=== PATIENT | male | born 1955 | race Caucasian/White ===

== ENCOUNTER 2019-11-19 13:21 | Outpatient (CLI) | payer MEDICAID, SELFPAY ==
--- NOTE | 2019-11-19 13:30 | CT_ITS ---
WS: [id number] CTA ABDOMINAL AORTA WITH RUNOFF TECHNIQUE: Contrast enhanced CTA of the abdominal aorta with bilateral lower extremity runoff. Multip lanar reformatted images were obtained. MIP reformats were also reviewed. CLINICAL INFORMATION: perip artery disease COMPARISON: None. DLP: 1312.[address] scans at [facility] use at least one of these dose optimization techniques: automat ed exposure control; mA and/or kV adjustment per patient size (includes targeted exams where dose is matched to clinical indication); or iterative reconstruction. FINDINGS: Liver is normal. Adrenal glands are normal. Normal renal parenchymal enhancement. Normal spleen. Norm al GE junction. Urine distended bladder. Prostate enlargement with calcification. Disc space narrowin g L5-S1. RIGHT: Right common iliac artery is patent. Moderate calcified atheromatous disease. Right external a nd internal iliac arteries are patent. Calcified internal iliac artery. Right common femoral and supe rficial femoral arteries are patent. Deep femoral artery is patent. SFA is patent to the adductor hia tus. Normal popliteal artery to the trifurcation. Mild calcification at the tibioperoneal trunk. Thre e-vessel runoff to the ankle. LEFT: Left common iliac artery is patent. Internal and external iliac arteries are patent. Dense calc ification internal iliac artery. Left common femoral artery is patent. Superficial femoral artery is occluded at the origin. Deep femoral artery is patent. Superficial femoral artery remains occluded th roughout the thigh. Popliteal artery reconstitutes via collaterals above the knee. Popliteal artery i s patent to the trifurcation with three-vessel runoff to the ankle. CT/CT angio abd aorta runof 80743 IMPRESSION: 1. Left superficial femoral artery is occluded at the origin and remains occlu ded throughout the thigh. 2. Reconstitution of the left popliteal artery [id number] with three-vesse l runoff to the left ankle. 3. No flow-limiting stenosis in the right lower extremity. 4. Normal caliber abdominal aorta. No abdominal aortic aneurysm. 5. Celiac and SMA origins are patent.
[2019-11-19 14:21] LABS: Blood Urea Nitrogen 11 mg/dL (8-23); Glomerular Filtration Rate 97.3 mL/min (90-130)
[2019-11-19] MEDS: iohexol 350 mg/mL 100 mL Btl IV (14:50)
== END 2019-11-19 13:22 | disposition home or self-care (01) ==
LOC: CT 13:24
PROVIDERS: Family Provider Family Medicine; PCP Family Medicine; Visit Provider Thoracic Surgery (Cardiothoracic Vascular Surgery)
DX: I70.292 Other atherosclerosis of native arteries of extremities, left leg (principal); I77.1 Stricture of artery
CPT/HCPCS: 36415; 75635; 82565; 84520

== ENCOUNTER 2020-02-07 18:00 | Inpatient (IN) | payer MEDICAID, SELFPAY ==
[2020-02-03 08:30] VITALS: BMI 23.0
--- NOTE | 2020-02-04 11:56 | ECG_ITS ---
Measurements Intervals [place] Rate: 54 P: 73 RI: 179 QRS: 63 QRSD: 90 T: 59 QT: 420 QTc: 401 SINUS BRADYCARDIA Compared to ECG 10/25/2014 17:33:53 Sinus tachycardia no longer present Electronically Signed On 02-04-2020 15:25:34 CDT by Mikayla Celestin M.D. [id number]
[2020-02-04 12:25] LABS: Add Urine Microscopic? NO
--- NOTE | 2020-02-04 12:56 | ANES.PREANE2 ---
Pre-Anesthetic Assessment Pre-Anesthetic Assessment: Height/Weight: Height 1.83 m Weight 77.111 kg Preop Diagnosis: Left superficial femoral artery occlusion Proposed Procedure: Operation Date: 02/07/20 12:15 Proposed Procedures p Femoral-Popliteal Artery Bypass 12719 I70.209(Not Applicable) - Ted Boo MD Familial anesthetic complications: None Social: Social History: Tobacco and No alcohol Packs per day: 0.5 ppd Exam: Pre-Anes Outpt Exam: alert, oriented x 3, clear to auscultation bilaterally and regular rate & rhythm Airway: Cervical ROM: WNL MP: 2 Additional comments: missing Pulmonary: Pulmonary: None reported CV/HEM: CV/HEM: PVD and None reported : : None reported Hepatic: Hepatic: None reported GI: GI: None reported Metabolic: Metabolic: None reported Musc/skel: Musc/skel: Lower Back Pain Comments: leg pain Neuropsych: Neuropsych: None reported Anesthetic Plan: ASA status: 3 Anesthesia: General Other: maijuana use (2-3 years ago) Risk of > 500 ml blood loss (7ml/kg in children): No PFSH Anesthesia PFSH: Social History Smoking and tobacco status: current every day smoker cigarettes Number of cigarettes per day: 1-5 Alcohol intake: former Household members: spouse Marital status: service: Yes Data Anesthesia Cardiac Studies: No Data to Display
[2020-02-04 13:33] LABS: Anion Gap 16.2 (5-19); Blood Urea Nitrogen 11 mg/dL (8-23); Calcium 10.4 mg/dL (8.5-10.5); Carbon Dioxide 26 mmol/L (22-29); Chloride 101 mmol/L (98-107); Glucose 78 mg/dL (65-115); Osmolality Calculated 283 mOsm/kg (285-295); Potassium 4.2 mmol/L (3.5-5.1); Sodium 139 mmol/L (136-145)
[2020-02-04 13:33] LABS: Bilirubin Urine Neg (NEGATIVE); Blood Urine Neg (Negative); Glucose Urine UA Norm (Normal); Ketones Urine Negative (Negative); Leukocyte Esterase Urine Negative (Negative); Nitrate Urine Negative (Negative); Protein Urine Neg (Negative); Specific Gravity, Urine 1.005 (1.005-1.030); Urine Appearance Clear (CLEAR); Urine Color Straw (Yellow); Urobilinogen Urine Norm (Negative); pH Urine 7 (5-7)
[2020-02-07] VITALS (32 sets, daily range): BP systolic 97–150; BP diastolic 52–88; PULSE 61–88; RESP 11–21; TEMP 36.4–37.1; O2SAT 94–100
--- NOTE | 2020-02-07 10:14 | XR_ITS ---
WS: [id number] PORTABLE CHEST HISTORY: Left femoropopliteal bypass COMPARISON: 10/25/2014 Hyperinflated lungs with emphysema. Scarring and pleural thickening is noted at the lung apices. Priya lar to the PET/CT from 09/19/2018. No pleural effusion or pneumothorax. Cardiac size: Normal. Mediastinum/Aorta: Normal mediastinum. No osseous abnormality seen. XR/XR chest 1V portable [id number] IMPRESSION: Chronic emphysema with fibrosis and pleural thickening at the apices.
--- NOTE | 2020-02-07 10:26 | P.ANESUD_ITS ---
Pre-Anesthetic Update Pre-Anesthetic Assessment: Date of Surgery/Procedure: 02/07/20 Preop Melody gnosis: Left superficial femoral artery occlusion Proposed Procedure: Operation Date: 02/07/20 12:15 Proposed Procedures p Femoral-Popliteal Artery Bypass 86811 I70.209(Not Applicable) - Ted Boo MD Any changes to Pre-Anesthetic Assessment?: No Last Intake: NPO > 8 hrs Labs Last 48hrs: Laboratory Results - last 48 hr 02/04/20 12:45 Blood Type A Positive Rho(D) Type Positive Antibody Screen Negative Crossmatch See Detail Exam: Pre-Anes Outpt Exam: alert, oriented x 3, clear to auscultation bilaterally and regular rate & rhythm Cardiac Studies: No Data to Display
[2020-02-07] MEDS: sodium chloride 0.9% 1,000 ML 30 ML IV (11:06)
[2020-02-07 11:16] LABS: Basophils % 0.6 %; Eosinophils # 0.2 10^3/uL (0.0-0.8); Eosinophils % 2.2 %; Hematocrit 45.3 % (42.0-52.0); Hemoglobin 14.9 g/dL (11.7-16.6); Lymphocytes # 1.4 10^3/uL (0.8-4.8); Lymphocytes % 20.2 %; Mean Corpuscular HGB Conc 32.9 g/dL (30.0-36.0); Mean Corpuscular Hemoglobin 32.7 pg (28.0-34.0); Mean Corpuscular Volume 99.6 fL (80-94); Mean Platelet Volume 8.6 fL (7.4-10.4); Monocytes # 0.5 10^3/uL (0.2-0.9); Neutrophils # 4.6 10^3/uL (1.8-7.7); Neutrophils % 68.6 %; Nucleated Red Blood Cells % 0 %; Platelet Count 280 10^3/cmm (130-400); Red Blood Count 4.55 10^6/uL (4.1-5.3); Red Cell Distribution Width 14.2 % (12.1-15.1); White Blood Count 6.7 10^3/uL (4.0-10.0)
--- NOTE | 2020-02-07 12:57 | W.PM.OPSUD ---
Surgery/Procedure H&P Update DATE OF PROCEDURE: February 07, 2020 DATE H&P PERFORMED: 02/03/20 H&P UPDATE INFORMATION: I have reviewed H&P completed within last 30 days, I have examined patient prior to procedure (Patient has been appropriately marked for left lower extremity procedure.) and No changes to prior documentation PREOP DIAGNOSIS: Left superficial femoral artery occlusion PRIMARY INDICATION FOR PROCEDURE: Left superficial femoral artery occlusion PLANNED PROCEDURE: Operation Date: 02/07/20 12:15 Proposed Procedures p Femoral-Popliteal Artery Bypass 86626 I70.209(Not Applicable) - Ted Boo MD
[2020-02-07] MEDS: vancomycin 1,000 MG SDV 1000 MG IRRIGATION (14:30)
[2020-02-07] MEDS: heparin, porcine 1,000 unit/mL INJ 10 mL 10000 UNIT IRRIGATION (14:30)
[2020-02-07] MEDS: fentaNYL 50 mcg/mL INJ 2mL IVP ×2 (17:33→17:46)
[2020-02-07] MEDS: ketorolac 30 mg/mL INJ (17:34)
--- NOTE | 2020-02-07 17:38 | PM.OP ---
Operative Report Date of procedure: February 07, 2020 Pre-op Diagnosis: Left superficial femoral artery occlusion Procedure Done: Left femoral-popliteal artery bypass utilizing 8 mm ringed [place]-Thomas graft Implants: 8 mm ring [place]-Thomas graft Pathology: none sent Surgeon: Ted Boo Anesthesia: General Estimated blood loss (mL): 35 Complications: None Findings: Palpable dorsalis pedis and posterior tibial pulses of the left foot at completion of the procedure. Condition: stable Disposition: ICU Brief History: 54-year-old gentleman with a long history of continued tobacco use. He has had progressive claudication of the left lower extremity which is now greatly affecting his day-to-day activities. Prior CTA of the abdominal aorta with runoff reveals total occlusion of the left SFA with reconstitution above the knee. Consideration for surgical bypass was entertained and discussed carefully with Mr. Connell. Potential risk of the procedure were frankly discussed as well as increased risk for early or delayed failure of the graft with continued tobacco use. Proper consents have been reviewed and signed. Procedure: Mr. Connell's bilateral lower extremities and lower abdomen were sterilely prepped and draped. A sterile roll was placed beneath the left knee. Incision was made medial to the left knee. Dissection was carried down with cautery and Metzenbaum scissors and this posterior space and to be heavily calcified popliteal artery and was identified. Intimate approximation with the popliteal vein was carefully and small bridging veins were divided after securing with vascular clips. No genicular branches needed to be divided. Vessels were noted to be heavily calcific but again much less so further distally. There did appear to be an adequate landing zone distally. Moistened antibiotic impregnated gauze was then placed in the wound after dissection been completed. We next made an incision in the left groin crease and utilize cautery and Metzenbaum scissors to continue dissection down to the femoral sheath was opened where the common femoral artery was carefully dissected free and isolated. Vessel loop was placed around the profundus femoral artery for control. The superficial femoral artery demonstrated heavy calcifications at its origin and was occluded. After control was obtained proximally and distally, a subcutaneous tunnel was then created from the distal incision to the proximal incision where an 8 mm ringed reinforced [place]-Thomas graft was then placed in this tunnel. After proper positioning, patient received 10,000 units of heparin. Next, the [place]-Thomas graft was cut to the appropriate length and beveled. Control was obtained on the popliteal artery utilizing vascular clamps. Arteriotomy was created with a #11 scalpel blade and large appropriately with Salazar scissors. Distal anastomosis was then completed utilizing running 6-0 Prolene suture to the distal aspect of the [place]-Thomas graft. Next, we beveled the proximal aspect the [place]-Thomas graft appropriately. Proximal and distal control was obtained on the femoral artery and the vessel was opened with a #11 scalpel blade and enlarged with Salazar scissors. Proximal anastomosis was then completed with the [place]-Thomas graft, again in a running fashion utilizing 6-0 Prolene suture. De-airing and backbleeding was allowed to occur. Antegrade flow was then reestablished through the graft into the popliteal artery. Areas of extravasation were repaired with 6-0 Prolene suture. Heparin was reversed with protamine and confirmed clinically. After adequate hemostasis had been obtained, the wound was irrigated with antibiotic solution. Sponge and needle count was correct x2. The wounds were then closed with Vicryl suture in multiple layers. Skin was reapproximated in a subcuticular fashion utilizing 3-0 Monocryl suture. Sterile dressing was applied. Mr. Connell was noted to have palpable dorsalis pedis and posterior tibial pulses at completion of the procedure. He was transported to the ICU in stable condition. I did counselor at law with his son by phone at the completion of the procedure.
[2020-02-07] MEDS: morphine 4 mg/mL SDV 1 mL 2 MG IVP ×2 (17:51→19:17)
--- NOTE | 2020-02-07 18:27 | SUR.PHASEI ---
1800 PT AWAKE ALERT ART LINE TO RT WRIST INTACT FLUSHES EASILY , GOOD WAVEFORM, LT GROIN AND LT THIGH SITES UNCHANGED D/I NO HEMATOMA RT FOOT PULSE STRONG AND REGULAR IV PATENT PT TO ICU AWAKE ALERT TAKING ICE CHIPS STATES PAIN IS MUCH BETTER, 1810 PT TO ICU 6 SLID TO BED WITH ASSIST OF 3 NURSES SITES INTACT NO BLEEDING HANDOFF AT BEDSIDE.
[2020-02-07] MEDS: lactated ringers 1,000 ML 100 ML IV (18:51)
[2020-02-07] MEDS: aspirin 325 mg Tablet PO (18:52)
[2020-02-07] MEDS: enoxaparin 40 mg/0.4 mL Syringe SUBCUT (19:18)
[2020-02-07] MEDS: gabapentin 300 mg Capsule PO (21:52)
[2020-02-07] MEDS: oxyCODONE-APAP 5-325 mg Tablet PO (21:52)
[2020-02-07] MEDS: ceFAZolin 1,000 MG in sodium chloride 0.9% (plus) 50 ML 100 MG IV (21:53)
--- NOTE | 2020-02-07 23:26 | PC.NURSE ---
Arterial Line Removed from Right Radial, pressure applied until hemotasis achieved. Catheter intact, no signs of bleeding or hematoma formation. Pt tolerated well.
[2020-02-08] VITALS (44 sets, daily range): BP systolic 89–114; BP diastolic 53–70; PULSE 53–71; RESP 0–22; TEMP 36.4–37.1; O2SAT 94–100
--- NOTE | 2020-02-08 00:28 | PC.NURSE ---
Vascular Checks Left leg is warm/pink with strong 3+ pedal pulses without edema, < 3 sec refill. Pt denies sensation and reports being able to feel warmth again . Groin site asymptomatic, dressing clean dry and intact. Left upper tight dressing scant amount of drainage to dressing and was circled.
[2020-02-08] MEDS: oxyCODONE-APAP 5-325 mg Tablet PO ×4 (03:27→21:33)
[2020-02-08 05:45] LABS: Basophils % 0.3 %; Eosinophils # 0.1 10^3/uL (0.0-0.8); Eosinophils % 1.5 %; Hematocrit 38.1 % (42.0-52.0); Hemoglobin 12.5 g/dL (11.7-16.6); Lymphocytes # 0.7 10^3/uL (0.8-4.8); Mean Corpuscular HGB Conc 32.8 g/dL (30.0-36.0); Mean Corpuscular Hemoglobin 33.4 pg (28.0-34.0); Mean Corpuscular Volume 101.9 fL (80-94); Mean Platelet Volume 8.8 fL (7.4-10.4); Monocytes # 0.6 10^3/uL (0.2-0.9); Monocytes % 8.6 %; Neutrophils # 5.8 10^3/uL (1.8-7.7); Neutrophils % 80.3 %; Nucleated Red Blood Cells % 0 %; Platelet Count 198 10^3/cmm (130-400); Red Blood Count 3.74 10^6/uL (4.1-5.3); Red Cell Distribution Width 14.4 % (12.1-15.1); White Blood Count 7.2 10^3/uL (4.0-10.0)
[2020-02-08] MEDS: ceFAZolin 1,000 MG in sodium chloride 0.9% (plus) 50 ML 100 MG IV ×3 (05:54→21:31)
--- NOTE | 2020-02-08 05:54 | PM.PN ---
Subjective Subjective: Interval history: Postop day 1 status post left femoropopliteal. 2+ palpable left dorsalis pedis and posterior tibial pulses. Surgical dressings dry. Vital signs stable. Pain under good control. Vitals/I&O/Wt Last Vital Signs Temp 97.7 F 02/08/20 03:29 Pulse 55 L 02/08/20 04:00 Resp 14 02/08/20 04:00 BP 97/61 02/08/20 04:00 Pulse Ox 95 02/08/20 04:00 02/07/20 02/07/20 02/08/20 14:59 22:59 06:59 Intake Total 850 / 850 Output Total 425 / 425 Balance 425 / 425 Physical Exam Cardio: PERIPHERAL PULSES: posterior tibial pulses present and dorsalis pedis pulses present OTHER: Surgical dressing in left groin and left knee clean and dry. Urinary Catheter Management^: Gomez: Cath Placed During This Visit: yes Reason for Continuing Indwelling Catheter: Accurate Measurement of Urinary Output in Critically Ill Patients Urinary Catheter Date of Insertion: 02/07/20 Urinary Catheter Time of Insertion: 14:00 Data : 02/08/20 05:20 02/04/20 12:45 A&P Assessment and plan (1) Status post femoral-popliteal bypass surgery: Postop day #1 status post left femoropopliteal bypass Hep-Lock IV DC Gomez catheter Transfer to knight Status: Acute Attestations Medical Necessity Statement*: Postop day #1 status post left femoral-popliteal artery bypass Time Spent in Patient Care: less than 15 minutes Coding Level of Care Code Acute Marine Service Manager for Merlyn Hernandez Diagnoses Status post femoral-popliteal bypass surgery Z95.828
[2020-02-08 06:29] LABS: Anion Gap 14.9 (5-19); Blood Urea Nitrogen 16 mg/dL (8-23); Calcium 8.2 mg/dL (8.5-10.5); Carbon Dioxide 22 mmol/L (22-29); Chloride 104 mmol/L (98-107); Glomerular Filtration Rate 97.3 mL/min (90-130); Glucose 102 mg/dL (65-115); Osmolality Calculated 281 mOsm/kg (285-295); Potassium 3.9 mmol/L (3.5-5.1); Sodium 137 mmol/L (136-145)
[2020-02-08] MEDS: gabapentin 300 mg Capsule PO ×3 (08:05→19:11)
[2020-02-08] MEDS: aspirin 325 mg Tablet PO (08:05)
[2020-02-08] MEDS: pantoprazole DR 40 mg Tablet PO (08:05)
--- NOTE | 2020-02-08 08:27 | PC.NURSE ---
Pt pulls 3000 on IS
--- NOTE | 2020-02-08 08:37 | PC.NURSE ---
PT request that order for PT be stopped as the pt walks without any difficulty at this time. Nathan, PT
[2020-02-08] MEDS: ketorolac 30 mg/mL INJ IVP (16:04)
[2020-02-08] MEDS: enoxaparin 40 mg/0.4 mL Syringe SUBCUT (18:30)
[2020-02-08] MEDS: clopidogrel 75 mg Tablet PO (19:11)
[2020-02-09] VITALS: BP 103/55; PULSE 61; RESP 20; TEMP 36.5; O2SAT 96
[2020-02-09 04:00] VITALS: BP 126/71; PULSE 61; RESP 18; TEMP 36.6; O2SAT 98
[2020-02-09] MEDS: ceFAZolin 1,000 MG in sodium chloride 0.9% (plus) 50 ML 100 MG IV (05:46)
--- NOTE | 2020-02-09 06:31 | P.DS_ITS ---
Discharge Providers Date of Admission: 02/07/20 18:00 Date of Discharge: February 09, 2020 Attending Provider at Admission: Ted Boo MD Attending Provider at Discharge: Ted Boo MD Primary Care Provider: Aidan Aquino Diagnoses at Discharge Discharge Diagnosis (1) Status post femoral-popliteal bypass surgery: Status: Acute Reason for Visit Reason for Visit: Reason For Visit: ARTERY BYPASS Hospital Course Hospital Course: 64-year-old gentleman with progressive left lower extremity claudication symptoms now occurring at around 50 to 60 feet. Evaluation included CTA of abdominal aorta with runoff which revealed total occlusion of the SFA with reconstitution above the knee. He was electively admitted and underwent left femoral-popliteal artery bypass utilizing an 8 mm ringed [place]-Thomas graft. He has a 2+ palpable left dorsalis pedis and posterior tibial pulse postop. He has done well. Incisions are clean and dry. Ambulating with minimal discomfort. Plavix was added to his antiplatelet regimen of daily aspirin. He will be discharged home today in stable condition. He will follow- up in my clinic in 1 week. Physical Exam Cardio: PERIPHERAL PULSES: popliteal pulses present, posterior tibial pulses present and dorsalis pedis present OTHER: Left groin and left knee incisions are clean and dry. Urinary Catheter Management^: Gomez: Cath Placed During This Visit: yes, but has since been removed by the nurse Reason for Continuing Indwelling Catheter: Accurate Measurement of Urinary Output in Critically Ill Patients Urinary Catheter Date of Insertion: 02/07/20 Urinary Catheter Time of Insertion: 14:00 Date Urinary Catheter Removed: 02/08/20 Time Urinary Catheter Discontinued: 06:04 Discharge Data Data Completed and Pending: Completed Studies During Hospitalization Category Date Time Status XR chest 1V reny ble [id number] Routine Exams 02/07/20 10:14 Completed Vitals: Last Vital Signs Temp 97.9 F 02/09/20 04:00 Pulse 61 02/09/20 04:00 Resp 18 02/09/20 04:00 BP 126/71 02/09/20 04:00 Pulse Ox 98 02/09/20 04:00 Discharge Plan Discharge Patient Disposition: Home, Self-Care Condition: Stable Prescriptions: [place] 5-325 mg tablet 1 tab PO Q6H PRN (Reason: pain) Qty: 15 RF: 0 clopidogrel 75 mg Tablet 75 mg PO DAILY Qty: 30 RF: 5 Continued gabapentin 300 mg capsule 300 mg PO TID RF: 0 diphenhydramine-acetaminophen [Tylenol PM Extra Strength] 25-500 mg tablet 1 tab PO BEDTIME PRN (Reason: Sleep) RF: 0 aspirin [Aspir-81] 81 mg tablet,delayed release (DR/EC) 81 mg PO DAILY RF: 0 Discharge Orders: Discharge Order (Routine); Ordered 02/09/20 Ordered By: Ted Boo Referrals: Ted Boo MD [Physician] - 02/17/20 Discharge Diet: Usual diet Discharge Activity: Limit activity as instructed Activity Restrictions/Additional Instructions: May remove bandage tomorrow May begin daily showers tomorrow with incisions uncovered Dry incisions areas completely after showers. Keep gauze over groin incision after drying. No swimming or tub baths x 2 weeks No ointments on incision Report drainage, redness, heat, increased pain, or swelling to clinic Discharge Attestations Time Spent in Discharge Care*: less than 30 min Specific Discharge Activities: Specific discharge activities: educating patient, discussing with returned case inspector/social workers/dc planners, documenting/other paperwork and evaluating patient/reviewing data Time Spent in Smoking Cessation: Time spent discussing smoking cessation with patient: 3 to 10 minutes Status at Discharge: Cognitive status at discharge: cognitively intact , Behavioral status at discharge: independent in ADL's , Functional status at discharge: independent ambulation Overall status at discharge: patient is progressing back to baseline Quality Metrics Clinical Quality Measures During this hospital stay, did patient experience: None Coding Level of Care Code Acute Tax Representative for Merlyn Hernandez Diagnoses Status post femoral-popliteal bypass surgery Z95.828
[2020-02-09 08:00] VITALS: BP 133/70; PULSE 75; RESP 18; TEMP 36.4; O2SAT 100
[2020-02-09 08:01] VITALS: RESP 18
[2020-02-09] MEDS: clopidogrel 75 mg Tablet PO (08:01)
[2020-02-09] MEDS: gabapentin 300 mg Capsule PO (08:01)
[2020-02-09] MEDS: oxyCODONE-APAP 5-325 mg Tablet PO (08:01)
[2020-02-09] MEDS: pantoprazole DR 40 mg Tablet PO (08:01)
[2020-02-09] MEDS: aspirin 325 mg Tablet PO (08:01)
[2020-02-09 09:00] VITALS: RESP 18
--- NOTE | 2020-02-09 09:39 | PC.RESP ---
Smoking Cessation information to patient and a schedule of classes.
--- NOTE | 2020-02-09 09:44 | PC.RESP ---
Smoking Cessation information and a schedule of classes to patient.
== END 2020-02-09 09:52 | disposition home or self-care (01) | DRG 254 ==
LOC: ICU 18:05 → MEDSURG 02-08 08:58
PROVIDERS: Admitting Provider Thoracic Surgery (Cardiothoracic Vascular Surgery); PCP Family Medicine; Visit Provider Thoracic Surgery (Cardiothoracic Vascular Surgery)
PROC: 041L0JL Bypass Left Femoral Artery to Popliteal Artery with Synthetic Substitute, Open Approach (ICD-10-PCS; principal; 2020-02-07 12:05)
DX: I77.1 Stricture of artery (principal); Z79.82 Long term (current) use of aspirin; F17.210 Nicotine dependence, cigarettes, uncomplicated
CPT/HCPCS: 12345; 36415; 51702; 71045; 80048; 81003; 85025; 86850; 86900; 86920; 93005; 96372; 96375; J0690; J1644; J1650; J1885; J2001; J2270; J2370; J2405; J2704; J2710; J2720; J3010; J3370; J3490; J7030

== ENCOUNTER 2020-03-15 08:56 | Observation (INO) | payer MEDICAID, SELFPAY ==
[2020-03-15] VITALS (15 sets, daily range): BP systolic 84–132; BP diastolic 54–88; PULSE 53–78; RESP 7–32; TEMP 36.7–37.1; O2SAT 93–100; BMI 22.8
--- NOTE | 2020-03-15 09:15 | XR_ITS ---
WS: [id number] XR chest 1V portable [id number] REASON FOR EXAM: dyspnea/cough FINDINGS: Comparisons were made to February 07, 2020. The heart and mediastinal interfaces are normal. The lung garay are well aerated. There is no pneumonia, pleural effusion, pulmonary edema, The hilum and apices are normal. There is mild degenerate changes of the thoracic spine. XR/XR chest 1V portable [id number] IMPRESSION: Negative chest for active pathology.
--- NOTE | 2020-03-15 09:15 | ECG_ITS ---
[facility] ED Test Date: 2020-03-15 Pat Name: Jewel Connell Department: Room: Gender: Male Mat Repairer: : 1955 Requested By: Jd Thacker Order Number: [id number] Bridger MD: Kevin Fernández M.D. Measurements Intervals [place] Rate: 66 P: 73 IA: 178 QRS: 68 QRSD: 86 T: 74 QT: 395 QTc: 415 Interpretive Statements SINUS RHYTHM Compared to ECG 02/04/2020 12:36:00 Sinus bradycardia no longer present Electronically Signed On 03-15-2020 19:17:27 CDT by Kevin Fernández M.D. [id number]
[2020-03-15 09:40] LABS: ABG PCO2 22.9 mmHg (35-45); ABG PH Result 7.52 (7.35-7.45); Alveolar-Arterial Oxygen Gradi 30.2 mmHg (5-10); Arterial Blood Gas Hematocrit 43.9 % (42-52); Base Excess ABG -2.3 mmol/L (-2.0-2.0); Blood Gas Allen Test Pos; Blood Gas Sample Site Radial, left; Blood Gas Sample Type Arterial; Carboxyhemoglobin 2.4 %THgb (0.4-20.1); HCO3 ABG 18.6 mmol/L (22-26); HGB O2 Sat 95.9 % (95-100); Ionized Calcium Level - ABG 1.2 mmol/L (1.1-1.4); Methemoglobin 0.8 % (0.4-1.5); Oxygen Device ROOM AIR; PO2 ABG 89.3 mmHg (80.0-100.0); Potassium Level - ABG 3.7 mmol/L (3.5-5.0); Total Hemoglobin 14.3 g/dL (14-18)
--- NOTE | 2020-03-15 09:57 | ED_ITS ---
HPI - SOB/Dyspnea General: Chief Complaint: Shortness of Breath/Dyspnea Stated Complaint: SOB, FEVER, COUGH Time Seen by Provider: 03/15/20 09:15 History of Present Illness: HPI Narrative: 64-year-old male comes in complaining of chest pain that began this morning radiating into his back and his right shoulder and axilla down his right arm as well as on the left side of his jaw. He rates the pain 8-9 of 10 initially feels like is down to a 7 of 10 now he did not really take any medications for it also made him nauseous diaphoretic and dyspneic. The last several days he is also noticed a temp up to 1017 orally he generally felt sick with myalgias and flulike symptoms he had a nonproductive cough and he has had milder shortness of breath the shortness of breath did worsen when he got the episode of chest pain. Unfortunately he has known peripheral vascular disease and is a very heavy smoker in the past he has cut down. he recently had a femoropopliteal bypass by Dr. Boo. He has no known coronary artery disease he is never had a [place]. He did think he had some cardiac testing prior to his femoropopliteal bypass, but when I reviewed the old charts there was no sign of any previous stress testing. MD elicited complaint: shortness of breath, cough and chest pain Pertinent past history: COPD and other (PAD) Onset (ago): day(s) Timing: intermittent Severity: moderate Exacerbating factors: exertion, movement and coughing Relieving factors: oxygen and rest Known history of: COPD Associated symptoms: Reports chest congestion, chest pain, cough, diaphoresis, dizziness, fever(s), nausea, orthopnea and palpitations Review of Systems Const: Reports: fever(s) and diaphoresis ENMT: Denies: throat pain, ear or mastoid pain, nasal discharge or nasal congestion Card: Reports: chest pain, palpitations and orthopnea Resp: Reports: chest congestion GI: Reports: nausea : Denies: flank pain, dysuria, urinary frequency or urinary urgency Skin/Breast: Denies: rash or pruritus Neuro: Reports: dizziness PFSH ED PFSH: Medical History (Updated 03/18/20 @ 16:32 by Jd Prince DO) COPD (chronic obstructive pulmonary disease) History of squamous cell carcinoma Peripheral vascular disease of extremity Tobacco abuse Surgical History (Updated 03/15/20 @ 14:53 by Britt Powell DO) History of appendectomy History of back surgery History of cholecystectomy History of testicular surgery 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 Father No problems noted. Denies family history of CAD (coronary artery disease) Cancer Social History (Updated 03/15/20 @ 14:55 by Britt Powell DO) Smoking and tobacco status: current every day smoker cigarettes Alcohol intake: former Household members: spouse Marital status: service: Yes Physical Exam Const: COMMON NORMALS: no acute distress GENERAL APPEARANCE: cooperative and comfortable ORIENTATION/CONSCIOUSNESS: Yes awake, Yes oriented to person, Yes oriented to place and Yes oriented to time HENMT: COMMON NORMALS: normocephalic, atraumatic, hearing grossly normal bilaterally, external ears normal, EAC's normal, TM's normal bilaterally, Normal nasal mucous membranes and turbinates present, moist oral mucous membranes and oropharynx normal HEAD & SCALP: normocephalic and atraumatic NOSE: Normal nasal mucous membranes and turbinates present EXTERNAL EAR: Yes external ears normal EXTERNAL AUDITORY CANAL: EAC's normal TYMPANIC MEMBRANE: TM's normal bilaterally Eye: COMMON NORMALS: Equal, round and reactive pupils present, EOMs intact bilaterally, conjunctivae normal and no scleral icterus CONJUNCTIVA: Yes conjunctivae normal PUPIL: Yes Equal, round and reactive pupils present Neck/C-Spine: COMMON NORMALS: full ROM, no lymphadenopathy, supple and no JVD Lymph: LYMPHATIC: no lymphadenopathy noted and no lymphedema noted Resp: COMMON NORMALS: normal respiratory effort, No retractions, No use of accessory muscles and clear to auscultation bilaterally AUSCULTATION: clear to auscultation bilaterally Cardio: COMMON NORMALS: no JVD, regular rate, regular rhythm and No murmurs present (Cardio) RATE: regular rate RHYTHM: regular rhythm GI: COMMON NORMALS: Soft to palpation and No hepatosplenomegaly present AUSCULTATION: Yes normoactive bowel sounds PALPATION: Yes Soft to palpation, No Tenderness to palpation present (GI), No Guarding due to palpation present (GI) and Yes No hepatosplenomegaly present Extremity: COMMON NORMALS: normal to inspection, capillary refill normal, no clubbing, cyanosis or edema, no calf tenderness and no pedal edema Neuro: SENSORIUM/ORIENTATION: Yes oriented to person, Yes oriented to place and Yes oriented to time Skin: COMMON NORMALS: no rashes or lesions noted GENERAL SKIN EXAM: no rashes or lesions noted Course Vital Signs: Vital signs: Vital Signs Temperature 98.1 F 03/16/20 15:33 Pulse Rate 61 03/16/20 15:33 Respiratory Rate 15 03/16/20 15:33 Blood Pressure 111/63 03/16/20 15:33 Pulse Oximetry 96 03/16/20 15:33 MDM - SOB/Dyspnea MDM Narrative: Medical decision making narrative: Admit for rule out and further evaluation of fever. CTA of the chest was done to rule out thoracic aneurysm initially there was a question of PE formal PE study was done to confirm because patient was already on Plavix and aspirin we did not want to start triple therapy without confirming. CTA was negative. Discussed with Dr. Powell will admit for further rule out and evaluation. Lab Data: Labs: Lab Results 03/15/20 03/15/20 03/15/20 Range/Units 09:29 09:45 09:45 WBC 4.2 (4.0-10.0) 10^3/ uL RBC 4.24 (4.1-5.3) 10^6/u L Hgb 14.0 (11.7-16.6) g/dL Hct 42.4 (42.0-52.0) % MCV 100.0 H (80-94) fL MCH 33.0 (28.0-34.0) pg MCHC 33.0 (30.0-36.0) g/dL RDW 14.1 (12.1-15.1) % Plt Count 225 (130-400) 10^3/c mm MPV 8.7 (7.4-10.4) fL Neut % (Auto) 71.3 % Lymph % (Auto) 15.8 % [place] % (Auto) 11.0 % Eos % (Auto) 1.2 % Baso % (Auto) 0.2 % Neut # (Auto) 3.0 (1.8-7.7) 10^3/u L Lymph # (Auto) 0.7 L (0.8-4.8) 10^3/u L [place] # (Auto) 0.5 (0.2-0.9) 10^3/u L Eos # (Auto) 0.1 (0.0-0.8) 10^3/u L Baso # (Auto) 0.0 (0.0-0.1) 10^3/u L Nucleated RBC % (a uto) 0 % Nucleated RBCs # 0.0 /100WBC Specimen Type Arterial Sample Site Radial, left ABG pH 7.52 H (7.35-7.45) ABG pCO2 22.9 L (35-45) mmHg ABG pO2 89.3 (80.0-100.0) mmH g ABG HCO3 18.6 L (22-26) mmol/L ABG O2 Saturation 99.0 ABG Base Excess -2.3 L (-2.0-2.0) mmol/ L Sp Test Pos A-a O2 Gradient 30.2 H (5-10) mmHg Hematocrit 43.9 (42-52) % Hgb O2 Saturation 95.9 (95-100) % Carboxyhemoglobin 2.4 (0.4-20.1) %THgb Methemoglobin 0.8 (0.4-1.5) % Total Hemoglobin 14.3 (14-18) g/dL Sodium 137.0 134 L (131-143) mmol/L Potassium 3.7 3.8 (3.5-5.0) mmol/L Glucose 105.0 99 (70-115) mg/dL Ionized Calcium 1.2 (1.1-1.4) mmol/L O2 Delivery Device Room air FiO2 21.0 % Screen Printing Machine Loader Unloader ID cak Chloride 101 (98-107) mmol/L Carbon Dioxide 18 L (22-29) mmol/L Anion Gap 18.8 (5-19) BUN 17 (8-23) mg/dL Creatinine 0.8 (0.7-1.2) mg/dL GFR Calculation 97.3 (90-130) mL/min Calculated Osmolal ity 274 L (285-295) mOsm/k g Calcium 9.7 (8.5-10.5) mg/dL Total Bilirubin 0.3 (0.15-1.2) mg/dL AST 18 (0-40) U/L ALT 16 (0-41) U/L Alkaline Phosphata se 106 (40-130) IU/L Troponin T Baselin e (0-15) ng/L Troponin T 120 Min [place] (0-15) ng/L Delta Troponin T (0-10) ABS# Total Protein 7.4 (6.6-8.7) g/dL Albumin 4.2 (3.5-5.2) g/dL Globulin 3.2 (1.3-4.6) g/dL Urine Color (Yellow) Urine Appearance (CLEAR) Urine pH (5-7) Ur Specific Gravit y (1.005-1.030) Urine Protein (Negative) Urine Glucose (UA) (Normal) Urine Ketones (Negative) Urine Blood (Negative) Urine Nitrate (Negative) Urine Bilirubin (NEGATIVE) Urine Urobilinogen (Negative) mg/dL Ur Leukocyte Lina ase (Negative) Urine RBC (0-2) /hpf Urine WBC (0-5) /hpf Ur Squamous Epith Cells (0-5) Urine Bacteria (NONE) Urine Mucus Nasal/Oral COVID-1 9 PCR Influenza Type A A g (Negative) Influenza Type B A g (Negative) 03/15/20 03/15/20 03/15/20 Range/Units 09:45 10:22 10:25 WBC (4.0-10.0) 10^3/ uL RBC (4.1-5.3) 10^6/u L Hgb (11.7-16.6) g/dL Hct (42.0-52.0) % MCV (80-94) fL MCH (28.0-34.0) pg MCHC (30.0-36.0) g/dL RDW (12.1-15.1) % Plt Count (130-400) 10^3/c mm MPV (7.4-10.4) fL Neut % (Auto) % Lymph % (Auto) % [place] % (Auto) % Eos % (Auto) % Baso % (Auto) % Neut # (Auto) (1.8-7.7) 10^3/u L Lymph # (Auto) (0.8-4.8) 10^3/u L [place] # (Auto) (0.2-0.9) 10^3/u L Eos # (Auto) (0.0-0.8) 10^3/u L Baso # (Auto) (0.0-0.1) 10^3/u L Nucleated RBC % (a uto) % Nucleated RBCs # /100WBC Specimen Type Sample Site ABG pH (7.35-7.45) ABG pCO2 (35-45) mmHg ABG pO2 (80.0-100.0) mmH g ABG HCO3 (22-26) mmol/L ABG O2 Saturation ABG Base Excess (-2.0-2.0) mmol/ L Sp Test A-a O2 Gradient (5-10) mmHg Hematocrit (42-52) % Hgb O2 Saturation (95-100) % Carboxyhemoglobin (0.4-20.1) %THgb Methemoglobin (0.4-1.5) % Total Hemoglobin (14-18) g/dL Sodium (131-143) mmol/L Potassium (3.5-5.0) mmol/L Glucose (70-115) mg/dL Ionized Calcium (1.1-1.4) mmol/L O2 Delivery Device FiO2 % Screen Printing Machine Loader Unloader ID Chloride (98-107) mmol/L Carbon Dioxide (22-29) mmol/L Anion Gap (5-19) BUN (8-23) mg/dL Creatinine (0.7-1.2) mg/dL GFR Calculation (90-130) mL/min Calculated Osmolal ity (285-295) mOsm/k g Calcium (8.5-10.5) mg/dL Total Bilirubin (0.15-1.2) mg/dL AST (0-40) U/L ALT (0-41) U/L Alkaline Phosphata se (40-130) IU/L Troponin T Baselin e 6 (0-15) ng/L Troponin T 120 Min [place] (0-15) ng/L Delta Troponin T (0-10) ABS# Total Protein (6.6-8.7) g/dL Albumin (3.5-5.2) g/dL Globulin (1.3-4.6) g/dL Urine Color Yellow (Yellow) Urine Appearance Clear (CLEAR) Urine pH 6 (5-7) Ur Specific Gravit y 1.020 (1.005-1.030) Urine Protein Neg (Negative) Urine Glucose (UA) Norm (Normal) Urine Ketones 2+ H (Negative) Urine Blood 2+ H (Negative) Urine Nitrate Negative (Negative) Urine Bilirubin Neg (NEGATIVE) Urine Urobilinogen 1 H (Negative) mg/dL Ur Leukocyte Lina ase Negative (Negative) Urine RBC 5-10 H (0-2) /hpf Urine WBC 0-4 H (0-5) /hpf Ur Squamous Epith Cells 0-4 H (0-5) Urine Bacteria Trace (NONE) Urine Mucus 3+ Nasal/Oral COVID-1 9 PCR N Influenza Type A A g (Negative) Influenza Type B A g (Negative) 03/15/20 03/15/20 Range/Units 10:25 11:52 WBC (4.0-10.0) 10^3/ uL RBC (4.1-5.3) 10^6/u L Hgb (11.7-16.6) g/dL Hct (42.0-52.0) % MCV (80-94) fL MCH (28.0-34.0) pg MCHC (30.0-36.0) g/dL RDW (12.1-15.1) % Plt Count (130-400) 10^3/c mm MPV (7.4-10.4) fL Neut % (Auto) % Lymph % (Auto) % [place] % (Auto) % Eos % (Auto) % Baso % (Auto) % Neut # (Auto) (1.8-7.7) 10^3/u L Lymph # (Auto) (0.8-4.8) 10^3/u L [place] # (Auto) (0.2-0.9) 10^3/u L Eos # (Auto) (0.0-0.8) 10^3/u L Baso # (Auto) (0.0-0.1) 10^3/u L Nucleated RBC % (a uto) % Nucleated RBCs # /100WBC Specimen Type Sample Site ABG pH (7.35-7.45) ABG pCO2 (35-45) mmHg ABG pO2 (80.0-100.0) mmH g ABG HCO3 (22-26) mmol/L ABG O2 Saturation ABG Base Excess (-2.0-2.0) mmol/ L Sp Test A-a O2 Gradient (5-10) mmHg Hematocrit (42-52) % Hgb O2 Saturation (95-100) % Carboxyhemoglobin (0.4-20.1) %THgb Methemoglobin (0.4-1.5) % Total Hemoglobin (14-18) g/dL Sodium (131-143) mmol/L Potassium (3.5-5.0) mmol/L Glucose (70-115) mg/dL Ionized Calcium (1.1-1.4) mmol/L O2 Delivery Device FiO2 % Screen Printing Machine Loader Unloader ID Chloride (98-107) mmol/L Carbon Dioxide (22-29) mmol/L Anion Gap (5-19) BUN (8-23) mg/dL Creatinine (0.7-1.2) mg/dL GFR Calculation (90-130) mL/min Calculated Osmolal ity (285-295) mOsm/k g Calcium (8.5-10.5) mg/dL Total Bilirubin (0.15-1.2) mg/dL AST (0-40) U/L ALT (0-41) U/L Alkaline Phosphata se (40-130) IU/L Troponin T Baselin e (0-15) ng/L Troponin T 120 Min [place] 6.00 (0-15) ng/L Delta Troponin T 0 (0-10) ABS# Total Protein (6.6-8.7) g/dL Albumin (3.5-5.2) g/dL Globulin (1.3-4.6) g/dL Urine Color (Yellow) Urine Appearance (CLEAR) Urine pH (5-7) Ur Specific Gravit y (1.005-1.030) Urine Protein (Negative) Urine Glucose (UA) (Normal) Urine Ketones (Negative) Urine Blood (Negative) Urine Nitrate (Negative) Urine Bilirubin (NEGATIVE) Urine Urobilinogen (Negative) mg/dL Ur Leukocyte Lina ase (Negative) Urine RBC (0-2) /hpf Urine WBC (0-5) /hpf Ur Squamous Epith Cells (0-5) Urine Bacteria (NONE) Urine Mucus Nasal/Oral COVID-1 9 PCR Influenza Type A A g Negative (Negative) Influenza Type B A g Negative (Negative) Discharge Plan Discharge Patient Disposition: Placed in Observation Admit Provider: Britt Powell Clinical Impression: Chest pain, COPD (chronic obstructive pulmonary disease), Fever, Peripheral vascular disease Condition: Stable Referrals: Aidan Aquino [Primary Care Provider] - 1 week ([facility] in [place] will be calling to schedule a hospital followup to be seen in 1 week. If you don't hear from them by Tomorrow afternoon, please give them a call. Thank you While you are at this appointment, please discuss a referal with a Furnace Mechanic Helper.) Discharge Diet: Cardiac Discharge Activity: Increase activity as tolerated Patient Instructions: Doxycycline (By mouth), Hydrocodone/Acetaminophen (By mouth), Nitroglycerin, Rapid Release (By mouth), How to Stop Smoking (DC), Cigarette Smoking and Your Health (GEN), Noncardiac Chest Pain (DC), Chest Pain Stoplight Additional Instructions: Discharge to home with doxycycline, antibiotic, take this 100 mg twice daily for 9 days Discharge to home with nitroglycerin, sublingual, to use as needed for chest pain. For any worsening chest pain or shortness of breath that is not improved with administration of 2 nitroglycerin please present to the emergency department for further evaluation and treatment. You had a CT scan of your chest due to the chest pain and shortness of breath, no evidence of any blood clot in the lungs on repeat imaging. Aorta was intact with no concern for dissection or rupture. Stress test showed low evidence of any ischemic changes. Would recommend close follow-up with your primary care provider to continue to work-up your low back pain. Would recommend outpatient pulmonary function testing due to concern for COPD Would recommend outpatient follow-up with pulmonology to establish care Strongly encouraged tobacco cessation Call your physician or present to the ED for any acute illness or concern Interventions: ED Discharge Assessment Last Done: 03/15/20 15:10 ED Charges Last Done: 03/15/20 15:10 Discharge Date/Time: 03/15/20 15:15 Coding Level of Care Code ED Dispatcher Service Or Work for Chg Fwd Exam Comprehensive
--- NOTE | 2020-03-15 09:57 | PC.NURSE ---
pt placed on droplet precautions at this time
--- NOTE | 2020-03-15 10:00 | CT_ITS ---
WS: [id number] CT angio chest [id number] REASON FOR EXAM: chest pain radiatiing into the back TECHNIQUE: Coronal and sagittal 2-D and MIP reformations. IV CONTRAST ADMINISTERED: Omnipaque 350, 95 mL bolus injection TOTAL EXAM DLP: 1035.[address] scans at [facility] use at least one of these dose optimization techniques: automat ed exposure control; mA and/or kV adjustment per patient size (includes targeted exams where dose is matched to clinical indication); or iterative reconstruction. FINDINGS: The right upper lung shows a large pneumatocele and large bullae. There is evidence of interstitial changes throughout the right lung. Groundglass configuration is see n bilaterally. The right lung after the bolus injection of contrast shows filling defects in the pulmonary arteries consistent with thromboembolic disease this is seen large pulmonary vessels extends to the periphery of the right lung predominantly. The left side appears to be essentially normal. The aorta was normal throughout its entirety in the thoracic cavity and the heart chambers are all no rmal. The liver appear to be normal. The adrenal glands were both normal. CT/CT angio chest [id number] IMPRESSION: Changes in the right middle and lower lungs consistent with thromboembolic isaacs ges in the consistent with pulmonary embolus. Diffuse interstitial disease bilaterally. Large pneumatocele right upper lung with associated bullae.
[2020-03-15 10:02] LABS: Basophils % 0.2 %; Eosinophils # 0.1 10^3/uL (0.0-0.8); Eosinophils % 1.2 %; Hematocrit 42.4 % (42.0-52.0); Lymphocytes # 0.7 10^3/uL (0.8-4.8); Lymphocytes % 15.8 %; Mean Platelet Volume 8.7 fL (7.4-10.4); Monocytes # 0.5 10^3/uL (0.2-0.9); Neutrophils % 71.3 %; Nucleated Red Blood Cells % 0 %; Platelet Count 225 10^3/cmm (130-400); Red Blood Count 4.24 10^6/uL (4.1-5.3); Red Cell Distribution Width 14.1 % (12.1-15.1); White Blood Count 4.2 10^3/uL (4.0-10.0)
[2020-03-15 10:17] LABS: Alanine Aminotransferase 16 U/L (0-41); Albumin Level 4.2 g/dL (3.5-5.2); Alkaline Phosphatase 106 IU/L (40-130); Anion Gap 18.8 (5-19); Aspartate Amino Transferase 18 U/L (0-40); Blood Urea Nitrogen 17 mg/dL (8-23); Calcium 9.7 mg/dL (8.5-10.5); Carbon Dioxide 18 mmol/L (22-29); Chloride 101 mmol/L (98-107); Globulin 3.2 g/dL (1.3-4.6); Glomerular Filtration Rate 97.3 mL/min (90-130); Glucose 99 mg/dL (65-115); Osmolality Calculated 274 mOsm/kg (285-295); Potassium 3.8 mmol/L (3.5-5.1); Sodium 134 mmol/L (136-145); Total Bilirubin 0.3 mg/dL (0.15-1.2); Total Protein 7.4 g/dL (6.6-8.7)
[2020-03-15 10:18] LABS: Troponin(5th) Baseline 6 ng/L (0-15)
[2020-03-15] MEDS: morphine 4 mg/mL SDV 1 mL 2 MG IVP ×2 (10:35→22:36)
[2020-03-15] MEDS: nitroglycerin 1 gm/inch oint Pkt 0.5 INCH TOPICAL (10:35)
[2020-03-15] MEDS: ondansetron 2 mg/ML SDV 2 mL 4 MG IVP (10:35)
[2020-03-15] MEDS: sodium chloride 0.9% 1,000 ML 999 ML IV ×2 (10:35→13:48)
[2020-03-15 10:48] LABS: Add Urine Microscopic? YES; Bilirubin Urine Neg (NEGATIVE); Blood Urine 2+ (Negative); Glucose Urine UA Norm (Normal); Ketones Urine 2+ (Negative); Leukocyte Esterase Urine Negative (Negative); Nitrate Urine Negative (Negative); Protein Urine Neg (Negative); Urine Appearance Clear (CLEAR); Urine Color Yellow (Yellow); Urobilinogen Urine 1 mg/dL (Negative); pH Urine 6 (5-7)
[2020-03-15 10:50] LABS: Add Urine Culture? No; Bacteria Urine TRACE; Mucus Urine 3+; Squamous Epithelial Cell Urine 0-4 (0-5); WBC Urine 0-4 /hpf (0-5)
[2020-03-15 10:58] LABS: Influenza A by IFA Negative (Negative); Influenza B by IFA Negative (Negative)
[2020-03-15] MEDS: iohexol 350 mg/mL 100 mL Btl IV ×2 (11:06→13:51)
--- NOTE | 2020-03-15 11:15 | ECG_ITS ---
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 Measurements Intervals [place] Rate: 64 P: 70 MO: 181 QRS: 58 QRSD: 92 T: 60 QT: 413 QTc: 427 Interpretive Statements SINUS RHYTHM WITH SINUS ARRHYTHMIA Compared to ECG 03/15/2020 09:36:17 No significant changes Electronically Signed On 03-15-2020 19:33:35 CDT by Kevin Fernández M.D. [id number]
--- NOTE | 2020-03-15 11:55 | PC.NURSE ---
EKG done at 1131 and shown to ER doctor
--- NOTE | 2020-03-15 12:08 | CT_ITS ---
WS: [id number] CTA OF THE CHEST WITH PULMONARY EMBOLISM PROTOCOL TECHNIQUE: High-resolution contrast enhanced CTA of the chest with coronal and sagittal reformatted i mages with pulmonary embolism protocol. MIP images are also reviewed. CLINICAL INFORMATION: dyspnea COMPARISON: March 15, 2020 DLP: 645.[address] scans at [facility] use at least one of these dose optimization techniques: automat ed exposure control; mA and/or kV adjustment per patient size (includes targeted exams where dose is matched to clinical indication); or iterative reconstruction. FINDINGS: Proximal main pulmonary arteries are normal. Segmental pulmonary arteries are normal. Artifact in the distal subsegmental lower lobe pulmonary arteries bilaterally. No evidence for pulmon raheem embolus. Moderate chronic emphysematous change. Prominent bullae in the right upper lobe unchanged from earlie r today. No acute pulmonary infiltrates. No consolidation or pleural fluid. No focal pneumonia. Adren al glands are normal. Normal GE junction. Visualized upper abdominal aorta is normal. Notified Jd Prince DO at 03/15/2020 1:[address]/CT angio chest PE protcl [id number] IMPRESSION: 1. No evidence for pulmonary embolus. 2. Normal caliber thoracic aorta. No evidence of aortic dissection. 3. Chronic emphysematous changes with unchanged prominent bulla in the right u pper lobe. 4. No acute pulmonary infiltrates. No consolidation or pleural fluid. 5. No mediastinal or hilar lymphadenopathy.
[2020-03-15 12:15] LABS: Troponin 5 2HR Delta 0 ABS# (0-10)
[2020-03-15] MEDS: morphine 4 mg/mL SDV 1 mL IVP (13:45)
--- NOTE | 2020-03-15 14:46 | PM.HP ---
Providers/Chief Complaint Primary Care Provider: Aidan Aquino Chief Complaint: SOB, FEVER, COUGH History of Present Illness Jewel Connell is a 64 year old male with a past medical history of COPD, tobacco abuse, history of squamous cell carcinoma and peripheral vascular disease that presented to the emergency department for chest pain. Patient stated that he has not been feeling well since Friday. Stated that he had been out working outside and playing with his grandson. He reports that he began having generalized fatigue and body aches. Patient did report a fever over the weekend, up to 101 ?F.. Stated that then he had began noticing increasing chest pain and shortness of breath. Stated that the pain was located in the center of his chest radiating to his back. This became worse this morning so he came into the ER for further evaluation and treatment. Reported that he seems to notice more symptoms with activity, pain was improved with nitroglycerin. He states that he has not had any cough, no sputum production, only generalized muscle aches and fatigue. He reports that he did have several ticks on him that he had to pull off over the past weekend and frequently works outside. No appreciable rashes or skin changes. Stated that he has been having some nausea and cramping abdominal discomfort with loose stools but it also started over the past 12 to 24 hours. Patient denies any sick contacts. He is reported that he has been social distancing and has not had any exposure to anyone positive for CO VID-19. He stated that his grandson was well over the weekend, no illness. He reported that his son was diagnosed with an ear infection last week. Patient recently had left femoral-popliteal bypass surgery by Dr. Boo, reports that incision is doing well with no drainage or surrounding erythema. Patient was seen and evaluated in the emergency department noted to have concern for chest pain and shortness of breath and admitted for observation for further evaluation and treatment. He had an initial CTA of the chest performed which showed question of pulmonary embolism, however CTA PE protocol was performed which was negative for any pulmonary embolism. Patient was started on nitroglycerin paste and had resolution of his chest pain. Continued to have some lumbar spine pain Review of Systems Const: Reports: fever(s) and chills Eyes: Denies: change in vision ENMT: Denies: nasal congestion Card: Reports: chest pain; Denies: palpitations or edema Resp: Reports: dyspnea; Denies: productive cough or hemoptysis GI: Reports: abdominal pain, nausea and diarrhea; Denies: vomiting, constipation, hematochezia or melena : Denies: dysuria or hematuria Musc: Reports: muscle cramps; Denies: extremity pain Skin/Breast: Denies: rash or new lesions Neuro: Denies: headache(s) or dizziness Psych: Denies: anxiety or depression Endo: Denies: polyuria or hot flashes Ron/Lymph: Denies: easy bruising or easy bleeding Medications/Allergies Home Medications Medication Instructions Recorded Confirmed Last Taken Type diphenhydramine 25 1 tab PO BEDTIME PRN tab 11/11/19 03/15/20 03/14/20 History mg-acetaminophen 500 mg tablet gabapentin 300 mg capsule 300 mg PO TID 11/11/19 03/15/20 03/14/20 History aspirin 81 mg tablet,delayed 81 mg PO DAILY 02/03/20 03/15/20 03/14/20 History release clopidogrel 75 mg PO DAILY #30 tab 02/09/20 03/15/20 03/14/20 Rx hydrocodone-acetaminophen [[place]] 1 tab PO Q6H PRN #15 tab 02/09/20 03/15/20 03/14/20 Rx Allergies Allergy/AdvReac Type Severity Reaction Status Date / Time No Known Allergies Allergy Verified 03/15/20 09:08 PFSH Acute PFSH: Medical History (Updated 03/15/20 @ 14:53 by Britt Powell DO) COPD (chronic obstructive pulmonary disease) History of squamous cell carcinoma Peripheral vascular disease of extremity Tobacco abuse Surgical History (Updated 03/15/20 @ 14:53 by Britt Powell DO) History of appendectomy History of back surgery History of cholecystectomy History of testicular surgery 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 Father No problems noted. Denies family history of CAD (coronary artery disease) Cancer Social History (Updated 03/15/20 @ 14:55 by Britt Powell DO) Smoking and tobacco status: current every day smoker cigarettes Alcohol intake: former Substance/Drug Use: current Substance/Drug use frequency: few times a week Substance/Drug use type: Marijuana Household members: spouse Marital status: service: Yes Supplemental [facility] Information: Patient reported the family history is unknown Vitals/I&O/Wt Last Vital Signs Temp 98.7 F 03/15/20 09:06 Pulse 64 03/15/20 14:05 Resp 18 03/15/20 13:45 BP 93/54 03/15/20 14:05 Pulse Ox 97 03/15/20 14:05 03/14/20 03/15/20 03/15/20 22:59 06:59 14:59 Intake Total 1000 / 1000 Balance 1000 / 1000 Weight last 48 hrs Weight 74.389 kg Physical Exam Const: COMMON NORMALS: patient oriented x3 and alert GENERAL APPEARANCE: cooperative ORIENTATION/CONSCIOUSNESS: Yes awake, Yes oriented to person, Yes oriented to place and Yes oriented to time HENMT: COMMON NORMALS: normocephalic and atraumatic HEAD & SCALP: normocephalic and atraumatic Eye: COMMON NORMALS: Equal, round and reactive pupils present PUPIL: Yes Equal, round and reactive pupils present Neck/C-Spine: COMMON NORMALS: supple GENERAL: Yes normal visual inspection Resp: COMMON NORMALS: normal respiratory effort and clear to auscultation bilaterally EFFORT & INSPECTION: Yes able to speak in complete sentences AUSCULTATION: clear to auscultation bilaterally, no rhonchi and no wheezes Cardio: COMMON NORMALS: regular rate, regular rhythm and No murmurs present (Cardio) RATE: regular rate RHYTHM: regular rhythm GI: COMMON NORMALS: Soft to palpation INSPECTION: No abdominal distension and Yes other (Mild epigastric tenderness) AUSCULTATION: Yes normoactive bowel sounds PALPATION: Yes Soft to palpation : COMMON NORMALS: Yes no CVA tenderness BLADDER/KIDNEY EXAM: Yes no CVA tenderness Back/Pelvis: COMMON NORMALS: no CVA tenderness Extremity: COMMON NORMALS: no clubbing, cyanosis or edema and no calf tenderness NARRATIVE EXTREMITY EXAM: Incision in the left groin and left medial thigh well-healing without any surrounding erythema, no drainage Neuro: COMMON NORMALS: patient oriented x3, CN's II-XII intact bilaterally, moves all extremities and no focal motor deficits SENSORIUM/ORIENTATION: Yes alert, Yes oriented to person, Yes oriented to place and Yes oriented to time SPEECH: speech normal Psych: COMMON NORMALS: mental status grossly normal and cooperative Skin: NARRATIVE SKIN EXAM: Patient appears to have sunburn over the shoulders and back Data : 03/15/20 09:45 03/15/20 09:45 A&P Assessment and plan (1) Chest pain: Observation with telemetry Serial EKG and troponin Chest x-ray performed and reviewed shows no acute cardiopulmonary process, CTA of the chest performed initially which showed question of pulmonary embolism, however CT a PE protocol was performed for further specific evaluation due to patient already being on aspirin and Plavix, this did not show any evidence of pulmonary embolism. Did show chronic emphysematous changes, normal caliber thoracic aorta, no evidence of aortic dissection. Patient did have improvement with nitroglycerin We will further evaluate with echocardiogram and stress testing Patient does have tobacco abuse and known peripheral vascular disease, has never had a cardiac evaluation in the past. Patient does report some nausea, muscle aches and fatigue as well as some epigastric discomfort. This could be contributing to some of his chest pain will check a lipase for further evaluation and also start on a PPI. Due to 2 contrast injections today we will hold off on CT scan of the abdomen and pelvis, however if not improved consider CT imaging of the abdomen and pelvis for further evaluation. UA without any evidence of urinary tract infection, no CVA tenderness. Status: Acute (2) Fever: Patient reports fever over the weekend with recent tick exposure. No other infectious etiology identified at this time. Further testing as noted above We will send for tick panel due to exposure with fever, muscle aches and fatigue Influenza swab is negative Patient was tested for CO VID-19 while in the ED, will continue on droplet and contact precautions We will go ahead and start on doxycycline 100 mg twice daily empirically due to concern for tickborne illness Status: Acute (3) Peripheral vascular disease of extremity: Status post femoral-popliteal bypass surgery by Dr. Boo, this was performed on 02/07/2020 Incision in the left groin and left extremity are well-healed with no surrounding erythema or drainage Status: Acute (4) COPD (chronic obstructive pulmonary disease): Without acute exacerbation Strongly encouraged tobacco cessation, this was discussed with patient Recommend outpatient pulmonary function testing Status: Acute (5) Tobacco abuse: Strongly encourage cessation, patient verbalized understanding Status: Acute (6) History of squamous cell carcinoma: History of squamous cell carcinoma of the right scrotum status post excision and radiation treatment Status: Acute Attestations Medical Necessity Statement*: Patient placed on observation due to chest pain and fever, expected stay less than 2 midnights. 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
--- NOTE | 2020-03-15 15:15 | ECG_ITS ---
[facility] Test Date: 2020-03-15 Pat Name: Jewel Connell Department: Room: ICU01 Gender: Male Tube Former Operator: : 1955 Requested By: Jd Thacker Order Number: [id number] Bridger MD: Kevin Fernández M.D. Measurements Intervals [place] Rate: 57 P: 65 NV: 196 QRS: 60 QRSD: 92 T: 64 QT: 420 QTc: 412 Interpretive Statements SINUS BRADYCARDIA Compared to ECG 03/15/2020 11:31:49 Sinus rhythm no longer present Sinus arrhythmia no longer present Electronically Signed On 03-15-2020 19:37:02 CDT by Kevin Fernández M.D. [id number]
--- NOTE | 2020-03-15 15:35 | XR_ITS ---
WS: [id number] XR lumbar spine 2-3V* 35071 REASON FOR EXAM: lumbar pain FINDINGS: 3 views of the lumbar spine shows degenerate changes at the L5 L4 level. There is degenerate disc changes L5-S1 with retrolisthesis. Remaining vertebral bodies and disc spaces are normal. XR/XR lumbar spine 2-3V* 31007 IMPRESSION: Retrolisthesis L5-S1 Degenerate disc changes L5-S1.
--- NOTE | 2020-03-15 15:35 | PC.NURSE ---
Pt admitted to ICU from ED. Pt alert and oriented. NO c/o of chest pain at this time. IV noted in right AC. Pt on room air.
--- NOTE | 2020-03-15 15:40 | PC.NURSE ---
Belongings: pt admitted with clothing and a pair of shoes. No other belongings noted Pt stated took cell phone and valuables home
--- NOTE | 2020-03-15 15:50 | PC.NURSE ---
Password: [place].
[2020-03-15] MEDS: enoxaparin 40 mg/0.4 mL Syringe SUBCUT (16:43)
[2020-03-15] MEDS: gabapentin 300 mg Capsule PO ×2 (16:43→20:09)
[2020-03-15] MEDS: pantoprazole DR 40 mg Tablet PO (16:44)
[2020-03-15] MEDS: sodium chloride 0.9% 1,000 ML 75 ML IV (16:44)
[2020-03-15] MEDS: clopidogrel 75 mg Tablet PO (16:44)
[2020-03-15] MEDS: aspirin 81 mg EC Tablet PO (16:44)
[2020-03-15] MEDS: oxyCODONE-APAP 5-325 mg Tablet 1 TAB PO ×2 (16:45→20:16)
[2020-03-15 16:51] LABS: Lipase 34 U/L (13-60)
[2020-03-15 16:56] LABS: Thyroid Stimulating Hormone 1.66 uIU/mL (0.27-4.20)
[2020-03-15] MEDS: doxycycline 100 mg Tablet PO (18:01)
[2020-03-15 20:22] LABS: Coronavirus Lab Test PTC N
--- NOTE | 2020-03-15 22:32 | PC.NURSE ---
Covid screen is negative. Dr. Denny gave order to discontinue isolation precautions.
[2020-03-16] VITALS (14 sets, daily range): BP systolic 91–126; BP diastolic 48–63; PULSE 52–89; RESP 7–24; TEMP 36.7–37.1; O2SAT 96–100
[2020-03-16] MEDS: oxyCODONE-APAP 5-325 mg Tablet 1 TAB PO ×4 (01:04→13:18)
[2020-03-16] MEDS: sodium chloride 0.9% 1,000 ML 75 ML IV (04:45)
--- NOTE | 2020-03-16 04:45 | PC.NURSE ---
Report given to MARLENY Springer. Patient transported to CSU via wheelchair. Nursing at bedside. Patient safely transported to room. No concerns at this time.
--- NOTE | 2020-03-16 04:48 | PC.NURSE ---
Patient received from ICU at this time via wheelchair. Patient sitting up in recliner. Patient c/o 04/07 to mid-upper back. Reports having this pain since last Friday. Medication given as ordered, see MAR. Instructed patient on scheduled cardiac stress test. Provided water for stress prep. Patient verbalized complete understanding. Assessment performed as documented.
[2020-03-16 05:30] LABS: Basophils % 0.2 %; Eosinophils % 0.2 %; Hematocrit 37.1 % (42.0-52.0); Hemoglobin 12.2 g/dL (11.7-16.6); Lymphocytes # 0.8 10^3/uL (0.8-4.8); Lymphocytes % 18.8 %; Mean Corpuscular HGB Conc 32.9 g/dL (30.0-36.0); Mean Corpuscular Hemoglobin 33.1 pg (28.0-34.0); Mean Corpuscular Volume 100.5 fL (80-94); Mean Platelet Volume 8.9 fL (7.4-10.4); Monocytes # 0.4 10^3/uL (0.2-0.9); Monocytes % 9.5 %; Neutrophils # 2.9 10^3/uL (1.8-7.7); Neutrophils % 70.8 %; Nucleated Red Blood Cells % 0 %; Platelet Count 190 10^3/cmm (130-400); Red Blood Count 3.69 10^6/uL (4.1-5.3); Red Cell Distribution Width 14.3 % (12.1-15.1); White Blood Count 4.1 10^3/uL (4.0-10.0)
[2020-03-16 05:53] LABS: Alanine Aminotransferase 17 U/L (0-41); Albumin Level 3.6 g/dL (3.5-5.2); Alkaline Phosphatase 98 IU/L (40-130); Anion Gap 13.5 (5-19); Aspartate Amino Transferase 28 U/L (0-40); Blood Urea Nitrogen 12 mg/dL (8-23); Calcium 8.3 mg/dL (8.5-10.5); Carbon Dioxide 22 mmol/L (22-29); Chloride 103 mmol/L (98-107); Globulin 2.8 g/dL (1.3-4.6); Glomerular Filtration Rate 113.5 mL/min (90-130); Glucose 104 mg/dL (65-115); Osmolality Calculated 276 mOsm/kg (285-295); Potassium 3.5 mmol/L (3.5-5.1); Sodium 135 mmol/L (136-145); Total Bilirubin 0.2 mg/dL (0.15-1.2); Total Protein 6.4 g/dL (6.6-8.7)
--- NOTE | 2020-03-16 06:00 | ECG_ITS ---
[facility] Test Date: 2020-03-16 Pat Name: Jewel Connell Department: Room: 103 Gender: Male Pheresis Nurse: : 1955 Requested By: Britt Powell Order Number: [id number] Sparks MD: Brett Reza M.D. Interpretive Statements NAME OF STUDY: LEXISCAN SESTAMIBI STRESS TEST INDICATION: Chest Pain, LEXISCAN STRESS TEST ORDERING PHYSICIAN: Unknown CLINICAL INFORMATION: Unknown INTERPRETATION: 1. The patient was brought to the laboratory where Lexiscan was infused over 20 seconds. The resting blood pressure was 102/65. Maximum blood pressure was 143/78. The resting heart rate was 65 beats per minute. The maximum heart rate is 102 beats per minute. 2. The baseline electrocardiogram reveals sinus rhythm with poor R wave progression but otherwise a normal tracing 3. With Lexiscan infusion, there were no ST segment changes to suggest ischemia. 4. The patient experienced no symptoms or arrhythmias during the examination. CONCLUSION: 1. Unremarkable Lexiscan infusion. 2. Nuclear imaging to follow. Electronically Signed On 03-16-2020 10:04:53 CDT by Brett Reza M.D. [id number]
[2020-03-16] MEDS: morphine 4 mg/mL SDV 1 mL 2 MG IVP (06:13)
--- NOTE | 2020-03-16 07:00 | USCV_ITS ---
Jewel Connell Age: 64 Gender: M : 1955 Exam Date: 03/16/2020 12:41 Ordering Phys: Britt Powell DO Technologist: Blanca Hodges Exam Location: [facility] Indication: CP, PALP BP: 121 / 63 HR: 69 Rhythm: Sinus Technical Quality: Adequate MEASUREMENTS (Male / Female) Normal Values 2D ECHO LV Diastolic Diameter PLAX 3.9 cm 4.2 - 5.9 / 3.9 - 5.3 cm LV Systolic Diameter PLAX 2.8 cm LV Chamber Size 3.9 cm IVS Diastolic Thickness 1.2 cm 0.6 - 1.0 / 0.6 - 0.9 cm IVS Systolic Thickness 1.7 cm LVPW Diastolic Thickness 0.9 cm 0.6 - 1.0 / 0.6 - 0.9 cm LVPW Systolic Thickness 1.4 cm RV Chamber Size 3.2 cm LVOT Diameter 2.0 cm LV Ejection Fraction 2D Teich 56.3 % LV Ejection Fraction MOD 2C 62.9 % LV Ejection Fraction 2C AL 64.2 % LA Diameter 3.1 cm LA Width 3.1 cm LA Height 3.9 cm RA Width 2.8 cm RA Height 4.3 cm Aorta at Sinotubular Diameter 2.1 cm M-MODE LV Diastolic Diameter MM 4.7 cm 4.2 - 5.9 / 3.9 - 5.3 cm LV Systolic Diameter MM 3.5 cm LV Ejection Fraction MM Teich 51.4 % IVS Diastolic Thickness MM 1.1 cm 0.6 - 1.0 / 0.6 - 0.9 cm IVS Systolic Thickness MM 1.2 cm LVPW Diastolic Thickness MM 0.7 cm 0.6 - 1.0 / 0.6 - 0.9 cm LVPW Systolic Thickness MM 1.1 cm RV Diastolic Diameter MM 1.9 cm Aortic Annulus Diameter 3.0 cm LA Ao Ratio MM 1.0 MV E Point Septal Separation 0.3 cm DOPPLER AV Peak Velocity 136.0 cm/s LVOT Peak Velocity 101.0 cm/s AV Area Cont Eq vti 2.1 cm squared AV Area Cont Eq pk 2.3 cm squared MV Area PHT 2.9 cm squared Mitral E to A Ratio 1.2 MV E' Velocity 12.0 cm/s Mitral E to MV E' Ratio 6.2 Mitral E to LV E' Lateral Ratio 6.1 Mitral E to LV E' Septal Ratio 6.4 TR Peak Velocity 74.0 cm/s TR Peak Gradient 2.2 mmHg TR Mean Velocity 164.5 cm/s TR Mean Gradient 11.4 mmHg TR Velocity Time Integral 52.8 cm PV Peak Velocity 58.0 cm/s FINDINGS Left Ventricle Normal left ventricular size, systolic function and wall thickness, with no regional wall motion abnormalities. Normal left ventricular wall thickness. Normal diastolic filling pattern. Left ventricular ejection fraction is estimated at 60 %. Right Ventricle Normal right ventricular size and systolic function. Normal right ventricular systolic pressure. Right Atrium The right atrium is normal in size. Left Atrium The left atrium is normal in size. Mitral Valve Structurally normal mitral valve without significant stenosis or prolapse. There is no mitral regurgitation. Aortic Valve Structurally normal trileaflet aortic valve. No aortic valve stenosis. Trace aortic valve regurgitation. Tricuspid Valve Structurally normal tricuspid valve without significant stenosis or regurgitation. Pulmonary artery systolic pressure is normal. Pulmonic Valve Pulmonic valve not well visualized. Pericardium Normal pericardium without effusion. Aorta Normal ascending aorta dimension. CONCLUSIONS Normal left ventricular size, systolic function and wall thickness, with no regional wall motion abnormalities. Normal left ventricular wall thickness. Normal diastolic filling pattern. Left ventricular ejection fraction is estimated at 60 %. Structurally normal trileaflet aortic valve. No aortic valve stenosis. Trace aortic valve regurgitation. There are no prior echocardiogram studies to compare. Dr. Brett Reza MD (Electronically Signed) Final Date: 16 March 2020 16:15 S
[2020-03-16] MEDS: regadenoson 0.4 Mg/5 ml Syringe IVP (07:54)
[2020-03-16] MEDS: ondansetron 2 mg/ML SDV 2 mL 4 MG IVP (07:58)
[2020-03-16] MEDS: doxycycline 100 mg Tablet PO (09:43)
[2020-03-16] MEDS: clopidogrel 75 mg Tablet PO (09:44)
[2020-03-16] MEDS: pantoprazole DR 40 mg Tablet PO (09:44)
[2020-03-16] MEDS: aspirin 81 mg EC Tablet PO (09:44)
[2020-03-16] MEDS: gabapentin 300 mg Capsule PO ×2 (09:44→14:49)
[2020-03-16 12:20] LABS: Lyme AB Screen <0.90 index
[2020-03-16] MEDS: enoxaparin 40 mg/0.4 mL Syringe SUBCUT (14:49)
--- NOTE | 2020-03-16 14:55 | PM.DCS ---
Discharge Providers Date of Admission: 03/15/20 14:39 Date of Discharge: March 16, 2020 Attending Provider at Admission: Britt Pwoell DO Attending Provider at Discharge: Britt Powell DO Primary Care Provider: Aidan Aquino Diagnoses at Discharge Discharge Diagnosis (1) Chest pain: Status: Acute (2) Fever: Status: Acute (3) Peripheral vascular disease of extremity: Status: Acute (4) COPD (chronic obstructive pulmonary disease): Status: Acute (5) Tobacco abuse: Status: Acute (6) History of squamous cell carcinoma: Status: Acute Reason for Visit Reason for Visit: SOB, FEVER, COUGH Hospital Course Hospital Course: Patient was seen and evaluated in the emergency department noted to have concern for chest pain and shortness of breath and admitted for further evaluation and treatment. He was monitored on telemetry with no acute events, serial EKG and troponin did not show any evidence of acute changes. He was kept n.p.o. for stress test which showed no evidence of any ischemic changes. His COVID testing returned negative. He was tested for tickborne illness due to fever, tick exposure and myalgias, this remains pending. He was empirically started on doxycycline. Patient had an initial CTA of the chest which showed question of pulmonary embolism, repeat CTA of the chest with PE protocol was performed which is negative for pulmonary embolism. Patient remained 100% on room air, afebrile and vital signs otherwise stable. On date of discharge she reported that he was having more musculoskeletal back pain and no further chest tightness or difficulty breathing. Discussed with patient plan for discharge to home, he verbalized understanding and agreed with plan. Physical Exam Const: COMMON NORMALS: patient oriented x3 and alert GENERAL APPEARANCE: cooperative ORIENTATION/CONSCIOUSNESS: Yes awake, Yes oriented to person, Yes oriented to place and Yes oriented to time HENMT: COMMON NORMALS: normocephalic and atraumatic HEAD & SCALP: normocephalic and atraumatic Eye: COMMON NORMALS: Equal, round and reactive pupils present PUPIL: Yes Equal, round and reactive pupils present Neck/C-Spine: COMMON NORMALS: supple GENERAL: Yes normal visual inspection Resp: COMMON NORMALS: normal respiratory effort and clear to auscultation bilaterally EFFORT & INSPECTION: Yes able to speak in complete sentences AUSCULTATION: clear to auscultation bilaterally, no rhonchi and no wheezes Cardio: COMMON NORMALS: regular rate, regular rhythm and No murmurs present (Cardio) RATE: regular rate RHYTHM: regular rhythm GI: COMMON NORMALS: Soft to palpation INSPECTION: No abdominal distension and Yes other (Mild epigastric tenderness) AUSCULTATION: Yes normoactive bowel sounds PALPATION: Yes Soft to palpation : COMMON NORMALS: Yes no CVA tenderness BLADDER/KIDNEY EXAM: Yes no CVA tenderness Back/Pelvis: COMMON NORMALS: no CVA tenderness Extremity: COMMON NORMALS: no clubbing, cyanosis or edema and no calf tenderness NARRATIVE EXTREMITY EXAM: Incision in the left groin and left medial thigh well-healing without any surrounding erythema, no drainage Neuro: COMMON NORMALS: patient oriented x3, CN's II-XII intact bilaterally, moves all extremities and no focal motor deficits SENSORIUM/ORIENTATION: Yes alert, Yes oriented to person, Yes oriented to place and Yes oriented to time SPEECH: speech normal Psych: COMMON NORMALS: mental status grossly normal and cooperative Skin: NARRATIVE SKIN EXAM: Patient appears to have sunburn over the shoulders and back Discharge Data Data Completed and Pending: Completed Studies During Hospitalization Category Date Time Status CT angio chest 71 275 Urgent Cat Scan 03/15/20 10:[address] angio chest PE protcl [id number] Stat Cat Scan 03/15/20 12:08 Completed Sestamibi Stress Test Request Routi ne Exams 03/16/20 06:00 Completed XR chest 1V reny ble [id number] Stat Exams 03/15/20 09:15 Completed XR lumbar spine 2 -3V* [id number] Routine Exams 03/15/20 15:35 Completed NM abad perf SPECT r/s* [id number] Routin e Nuc Med 03/16/20 15:35 Completed Pending at discharge Category Date Time Status Sestamibi Stress Test Request Routi ne Exams 03/15/20 15:35 Stop Req Complete Blood Co unt w/Auto AM LABS Lab 03/17/20 04:00 Ordered Complete Blood Co unt w/Auto AM LABS Lab 03/18/20 04:00 Ordered Comprehensive Met abolic Panel AM LA BS Lab 03/17/20 04:00 Ordered Comprehensive Met abolic Panel AM LA BS Lab 03/18/20 04:00 Ordered Tick Panel Urgent Lab 03/15/20 15:48 Results CV echo complete* [id number] Routine Ultrasound 03/16/20 07:00 Taken Labs from last 24 hours 03/16/20 03/16/20 03/15/20 04:07 04:07 15:48 WBC 4.1 RBC 3.69 L Hgb 12.2 Hct 37.1 L MCV 100.5 H MCH 33.1 MCHC 32.9 RDW 14.3 Plt Count 190 MPV 8.9 Neut % (Auto) 70.8 Lymph % (Auto) 18.8 Bates % (Auto) 9.5 Eos % (Auto) 0.2 Baso % (Auto) 0.2 Neut # (Auto) 2.9 Lymph # (Auto) 0.8 Bates # (Auto) 0.4 Eos # (Auto) 0.0 Baso # (Auto) 0.0 Nucleated RBC % (a uto) 0 Nucleated RBCs # 0.0 Sodium 135 L Potassium 3.5 Chloride 103 Carbon Dioxide 22 Anion Gap 13.5 BUN 12 Creatinine 0.7 GFR Calculation 113.5 Glucose 104 Calculated Osmolal ity 276 L Calcium 8.3 L Total Bilirubin 0.2 AST 28 ALT 17 Alkaline Phosphata se 98 Troponin I 6 Hour Troponin I Hi Sens Del Total Protein 6.4 L Albumin 3.6 Globulin 2.8 Lipase TSH [place] Ab (Western B lot) <0.90 Nasal/Oral COVID-1 9 PCR 03/15/20 03/15/20 03/15/20 15:48 15:48 15:48 WBC RBC Hgb Hct MCV MCH MCHC RDW Plt Count MPV Neut % (Auto) Lymph % (Auto) Bates % (Auto) Eos % (Auto) Baso % (Auto) Neut # (Auto) Lymph # (Auto) Bates # (Auto) Eos # (Auto) Baso # (Auto) Nucleated RBC % (a uto) Nucleated RBCs # Sodium Potassium Chloride Carbon Dioxide Anion Gap BUN Creatinine GFR Calculation Glucose Calculated Osmolal ity Calcium Total Bilirubin AST ALT Alkaline Phosphata se Troponin I 6 Hour 6.50 Troponin I Hi Sens Del 0.50 Total Protein Albumin Globulin Lipase 34 TSH 1.66 [place] Ab (Western B lot) Nasal/Oral COVID-1 9 PCR 03/15/20 10:25 WBC RBC Hgb Hct MCV MCH MCHC RDW Plt Count MPV Neut % (Auto) Lymph % (Auto) Bates % (Auto) Eos % (Auto) Baso % (Auto) Neut # (Auto) Lymph # (Auto) Bates # (Auto) Eos # (Auto) Baso # (Auto) Nucleated RBC % (a uto) Nucleated RBCs # Sodium Potassium Chloride Carbon Dioxide Anion Gap BUN Creatinine GFR Calculation Glucose Calculated Osmolal ity Calcium Total Bilirubin AST ALT Alkaline Phosphata se Troponin I 6 Hour Troponin I Hi Sens Del Total Protein Albumin Globulin Lipase TSH [place] Ab (Western B lot) Nasal/Oral COVID-1 9 PCR N Vitals: Last Vital Signs Temp 98.0 F 03/16/20 11:35 Pulse 58 L 03/16/20 11:35 Resp 16 03/16/20 13:18 BP 121/63 03/16/20 11:35 Pulse Ox 100 03/16/20 13:18 Discharge Plan Discharge Patient Disposition: Home, Self-Care Condition: Stable Prescriptions: [place] 5-325 mg tablet 1 tab PO Q8H PRN (Reason: pain) 3 Days Qty: 9 RF: 0 doxycycline monohydrate 100 mg Tablet 100 mg PO BID 9 Days Qty: 18 RF: 0 nitroglycerin [Nitrostat] 0.4 mg Tablet, Sublingual 0.4 mg sublingual Q5M PRN (Reason: Chest Pain) 30 Days Qty: 20 RF: 0 Continued gabapentin 300 mg capsule 300 mg PO TID RF: 0 diphenhydramine-acetaminophen [Tylenol PM Extra Strength] 25-500 mg tablet 1 tab PO BEDTIME PRN (Reason: Sleep) RF: 0 aspirin [Aspir-81] 81 mg tablet,delayed release (DR/EC) 81 mg PO DAILY RF: 0 clopidogrel 75 mg Tablet 75 mg PO DAILY Qty: 30 RF: 5 Discharge Orders: Discharge Order (Routine); Ordered 03/16/20 Ordered By: Britt Powell Referrals: Aidan Aquino [Primary Care Provider] - 4-7 days Discharge Diet: Cardiac Discharge Activity: Increase activity as tolerated Activity Restrictions/Additional Instructions: Discharge to home with doxycycline, antibiotic, take this 100 mg twice daily for 9 days Discharge to home with nitroglycerin, sublingual, to use as needed for chest pain. For any worsening chest pain or shortness of breath that is not improved with administration of 2 nitroglycerin please present to the emergency department for further evaluation and treatment. You had a CT scan of your chest due to the chest pain and shortness of breath, no evidence of any blood clot in the lungs on repeat imaging. Aorta was intact with no concern for dissection or rupture. Stress test showed low evidence of any ischemic changes. Would recommend close follow-up with your primary care provider to continue to work-up your low back pain. Would recommend outpatient pulmonary function testing due to concern for COPD Would recommend outpatient follow-up with pulmonology to establish care Strongly encouraged tobacco cessation Call your physician or present to the ED for any acute illness or concern Discharge Attestations Time Spent in Discharge Care*: greater than 30 min Specific Discharge Activities: Specific discharge activities: educating patient Status at Discharge: Cognitive status at discharge: cognitively intact, Behavioral status at discharge: independent in ADL's, Quality Metrics Clinical Quality Measures During this hospital stay, did patient experience: None Coding Level of Care Code Acute Assistant Manager Bilingual for Merlyn Hernandez Diagnoses Chest pain R07.9 Fever R50.9 Peripheral vascular disease of extremity I73.9 COPD (chronic obstructive pulmonary disease) J44.9 Tobacco abuse Z72.0 History of squamous cell carcinoma Z85.89
--- NOTE | 2020-03-16 15:35 | NMCV_ITS ---
NM abad perf SPECT r/s* [id number] Jewel Connell Age: 64 Gender: M : 1955 Exam Date: 03/15/2020 15:35 Ordering Phys: Britt Powell DO Technologist: NAHED Carreno Exam Location: [facility] Indications: SOB, FEVER, COUGH STRESS TEST Please see separate stress test report in [facility] for full findings IMAGE PROTOCOL Rest/Stress 1 Lexiscan Day Radiopharmaceutical Dose (mCi) Administration Site Administered by Rest: Tc-99m 10.8 IV NAHED Mathias Sestamibi Stress:Tc-99m 32.9 IV NAHED Carreno Sestamijohana Rest: 16-Mar-2020 60 Discovery 630 Stress: 16-Mar-2020 30 Discovery 630 0.4mg Lexiscan. Images obtained in supine and prone position. SPECT RESULTS Technical Quality: Excellent Raw Data Analysis: Subdiaphragmatic attenuation artifact. Image Corrections: No attenuation or motion correction applied Summed Stress Score: 1 Summed Rest Score: 3 Summed Difference Score: 0 PERFUSION FINDINGS Small size perfusion abnormality of mid septal and apical inferior wall on rest supine stress images. Tracer uptake is significantly improved on prone stress images. This is suggestive of attenuation artifact. FUNCTIONAL RESULTS (calculated via Gated SPECT) Stress Image LV EF (%): 64 Stress EDV (mL):110 TID: 1.13 Stress ESV (mL):40 FUNCTIONAL FINDINGS: The left ventricle is normal in size. Transient Ischemia Dilatation of 1.1. There is normal left ventricular systolic function. The left ventricular ejection fraction is normal with a value of 64%. There is normal left ventricular wall thickening. IMPRESSIONS 1. Myocardial perfusion imaging is normal. Attenuation artifact noted in septal and apical inferior harper. 2. Overall left ventricular systolic function is normal without regional wall motion abnormalities. 3. The left ventricular ejection fraction is normal with a value of 64%. 4. Scan indicates low risk for cardiac events. 5. No prior similar studies to compare. Mikayla Celestin MD (Electronically Signed) Final Date: 16 March 2020 13:26 S
--- NOTE | 2020-03-16 16:22 | PC.NURSE ---
discharge instructions given and explained.pt verb understanding of instructions.medications provided by [facility].discharged at this time.
--- NOTE | 2020-03-20 14:28 | PC.RESP ---
Pulmonary Rehab information to patient.
--- NOTE | 2020-03-20 14:29 | PC.RESP ---
Smoking Cessation information sent to patient.
[2020-03-21 06:53] LABS: E. Chaffeensis AB IGG <1:64; E. Chaffeensis AB IGM <1:20; RMSF IGG DETECTED; RMSF IGM NOT DETECTED
== END 2020-03-16 16:24 | disposition home or self-care (01) ==
LOC: ER 12:40 → ICU 14:54 → CSU 03-16 04:26
PROVIDERS: Family Medicine; Admitting Provider Family Medicine; PCP Family Medicine; Visit Provider Family Medicine
DX: R07.9 Chest pain, unspecified (principal); R50.9 Fever, unspecified; J44.9 Chronic obstructive pulmonary disease, unspecified; F17.210 Nicotine dependence, cigarettes, uncomplicated; Z85.89 Personal history of malignant neoplasm of other organs and systems; Z79.82 Long term (current) use of aspirin; Z79.891 Long term (current) use of opiate analgesic
CPT/HCPCS: 12345; 36415; 36600; 71045; 71275; 72100; 78452; 80051; 80053; 81001; 82810; 83690; 83986; 84443; 84484; 85025; 86618; 86666; 86757; 87635; 87804; 93005; 93017; 93306; 96361; 96372; 96374; 96375; 96376; 99284; 99285; A9500; G0378; J1650; J2270; J2405; J2785; J7030; Q9967

== ENCOUNTER 2021-08-15 10:32 | Inpatient (IN) | payer MEDICARE, MEDICAID, SELFPAY ==
[2021-08-15] VITALS (59 sets, daily range): BP systolic 91–129; BP diastolic 42–76; PULSE 47–81; RESP 7–25; TEMP 37.1
--- NOTE | 2021-08-15 10:37 | ECG_ITS ---
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 [id number]
--- NOTE | 2021-08-15 10:41 | XACV_ITS ---
Exam Room: [facility] Ht: 183 cm Wt: 79 kg BSA: 2.00 m2 Gender: Male : 1955 Exam Priority: Routine Indication(s): - Acute inferior MO Procedure(s): Procedure Description: Diagnostic procedure Procedure Description: PCI procedure Procedure Description: Drug Eluting Coronary Stent Procedure Description: PTCA Procedure Description: Coronary Angiography Diagnostic Cath Status: Emergency Diagnostic Findings * Left Main has no significant disease. * Left Anterior Descending has minor luminal irregularities. * Circumflex has no significant disease. * Mid to * distal Right Coronary Artery: total thrombotic occlusion, ENE: 0 flow. This is the culprit vessel for ST elevation MO.. * Coronary angiography shows right dominance. PCI Status: Emergency PCI Indication: Immediate PCI for STEMI Interventional Findings * Procedure details: We engaged RCA with a JR4 guide catheter. IV heparin was administered to maintain an ACT above 250 seconds. A 0.014 run-through guidewire was used to cross the stenosis and was placed in PLV branch. 2.5 x 12 mm semicompliant balloon was used to predilate the stenosis in the mid to distal RCA. This was followed by placement of 3.5 x 22 mm resolute Jacques drug-eluting stent. At this time final angiogram was performed that showed excellent stent expansion, ENE-3 flow and no residual stenosis. Guidewire and guide catheter were removed. Patient left the Cylinder Press Feeder in a stable condition. * Distal Right Coronary Artery: 100% stenosis treated with a AB TREK 2.50X12 RX BALLOON, and BEATRIZ Stahl JACQUES 3.5X22 LEIDY. 0% residual stenosis, ENE: 3 flow. Conclusions 1. Total thrombotic occlusion of mid to distal RCA treated with 2. LEIDY x1.. 3. Mid to 4. distal Right Coronary Artery was treated with a Balloon, and Drug Eluting Stent. Recommendations * Transfer to ICU. * Aspirin and Plavix for at least 1 year. * High intensity statin therapy. * Beta-flavia and lisinopril. * Outpatient cardiology follow-up in 4 weeks. Interventional RX Recommendation: PCI w/o planned CABG Diagnostic RX Recommendation: PCI w/o planned CABG Anticoagulation: Heparin Pressures Phase:Rest AO : 94 / 59 ( 75 ) @ 8:56:00 AM 79 / 50 ( 64 ) @ 9:02:00 AM Clinical Evaluation EBL: 5mL-10mL Procedural Details Identified patient by full name and date of as verbalized by the patient/guarantor. Pre-Procedure Time Out. Does the consent match the physician's order: N/A Emergent; Informed Consent not obtained due to time critical life threat. Accurate & Complete Informed Consent: N/A Emergent; Informed Consent not obtained due to time critical life threat. Inpatient/Outpatient History & Physical on Chart: N/A Emergent; Informed Consent not obtained due to time critical life threat. If H&P is completed, is and addenduem needed: N/A Emergent; Informed Consent not obtained due to time critical life threat; If yes, is the addendum complete: N/A Emergent; Informed Consent not obtained due to time critical life threat. Visualize and Verify Site with Patient/Guarantor: N/A. Relevant Radiology Images available: N/A Emergent; Informed Consent not obtained due to time critical life threat. The risks, benefits, and alternatives of sedation and/or procedure were discussed by physician. The patient agrees to continue. Procedure started. [facility] Clinical Fraility Score: 3: Managing Well. Cylinder Press Feeder Indications: ACS <= 24 hours. Chest Pain Symptom Assessment: Typical Angina Symptoms. Cardiovascular Instability: Yes, if yes, Persistant Ischemic Symptoms. Correct patient, site and procedure confirmed by cath team. Maribel Kerr RN circulating. Current diagnosis: STEMI. PERRLA. Strong, equal hand slab polisher bilaterally. Lungs clear x 5 lobes. IV Site on Arrival: 22 gauge in the right hand. IV Fluids: 0.9% NaCl at KVO. 0 mL infused prior to slab lifting engineer. Pre Procedural Pulses: bilateral radial was 3+. Oxygen started at 2liters/min via nasal canula. right groin was prepped with chloroprep then draped in the usual sterile fashion. right radial was prepped with chloroprep then draped in the usual sterile fashion. Physician notified. Baseline sample Acquired. HR: 53 BPM. Equipment: 6F - Radial. Cardiac Cath Pack. ACIST Manifold Kit Model BT 2000. Heparinized Saline (2 units/mL), 1000 mL bag. Physician arrived. Physician scrubbed in. Immediate Pre-Procedure Time Out. Correct Patient: Yes; Correct Procedure: Yes; Correct Site: Yes; Correct Patient Position: Yes; Correct Supplies: Yes; Dried Flammable Prep: Yes; Blood Products Available: N/A;. Lidocaine 1% infiltrated to the right radial. Arterial access obtained. A 5 yi TIG catheter in over the exchange wire. Multiple views taken of left coronary artery. Catheter redirected to the RCA. Multiple views taken of right coronary artery. Catheter removed over the exchange wire. PCI Indication: STEMI. 6 yi JR 4 guide catheter was inserted over the wire. Current Diagnosis : STEMI. PCI Indication : Immediate PCI for STEMI. Runthrough guidewire was advanced through the guide catheter to lesion in the distal RCA. Inflation number : 1 A AB TREK 2.50X12 RX BALLOON was prepped and advanced across the Dist RCA , then inflated to 12 LISA for 0:11 seconds. Balloon out. Inflation Number : 2 A BEATRIZ Stahl JACQUES 3.5X22 LEIDY -Lot Number# [id number] was prepped and advanced across the Dist RCA. The stent was deployed at 12 LISA for 0:25 seconds. Exp. 2024-06-06. Stent balloon out. Results checked. A 22 gauge IV was started in the left hand using aseptic technique. ACT drawn. Results 357 seconds. Therapeutic limits - pre-heparin administration 90-150 seconds and monitoring heparin during a vascular procedure >250 seconds. Results checked. Wire out. Guide catheter out. Dr Simons scrubbed out. TR band placed. Hemostasis obtained. Post Procedure: Pulses reassessed and unchanged. PERRLA. Strong, equal hand slab polisher bilaterally. No VTE prophylaxis required. Total IV fluids: 0 mL. Medication's Wasted: Lidocaine 1% = 18 mL. Medication's Wasted: Nitro = 49.6 mL. Post-op diagnosis: STEMI, PCI of the distal RCA. Complications: none. Estimated blood loss: 5mL-10mL. Medication's Wasted: Heparin = 1000 units. A TR Band was successful obtaining hemostatsis at the Right Radial artery insertion site. Procedure completed. Patient transferred by wheelchair to ICU. Vital chart was stopped. Access Site Site: Right Radial artery Sheath Size: 6 Fr Hemostasis Method: TR Band Hemostasis Success: Successful Procedure Medications Start: 10:47 AM Stop: 10:47 AM Medication: Versed Amount: 1 mg Route: I.V. Start: 10:47 AM Stop: 10:47 AM Medication: Fentanyl Amount: 25 mcg Route: I.V. Start: 10:48 AM Stop: 10:48 AM Medication: Nitrogylcerin Amount: 200 mcg Route: I.A. Start: 10:51 AM Stop: 10:51 AM Medication: Versed Amount: 1 mg Route: I.V. Start: 10:56 AM Stop: 10:56 AM Medication: Aggrastat 12.5 mg/250 mL Amount: 40 ml Route: I.V. bolus Start: 10:57 AM Stop: 10:57 AM Medication: Aggrastat 12.5 mg/250 mL Amount: 14.4 ml/hr Route: I.V. drip Start: 11:00 AM Stop: 11:00 AM Medication: Nitrogylcerin Amount: 200 mcg Route: I.C. Start: 10:52 AM Stop: 10:52 AM Medication: Heparin Amount: 5000 units Route: I.A. Start: 11:10 AM Stop: 11:10 AM Medication: Plavix Amount: 600 mg Route: P.O. I, the attending physician, have reviewed and verified all procedure medications. Yes, all medications given per verbal order History/Risk Factors Tobacco Use: Current/Recent(w/in 1 year) Report Signatures Finalized by Keenan Simons MD on 08/29/2021 05:12 PM
--- NOTE | 2021-08-15 10:42 | P.HP_ITS ---
Providers/Chief Complaint Admitting Physician: Keenan Simons MD Primary Care Provider: Aidan Aquino Chief Complaint: STEMI History of Present Illness Jewel Connell is a 65 year old male with past medical history of peripheral artery disease with left-sided femoropopliteal bypass, GI bleed history, COPD who presented with severe chest pain [facility] in [place]. He was transf erred from there as his EKG showed ST elevations in inferior leads. According to patient's family he was having on and off chest pains for 8 to 10 hours however about 4 hours prior to presentation to the ER, he developed severe pain. It was radiating to both arms. Subcontracts Manager was activated and he was emergently taken to the Subcontracts Manager. Coronary angiogram showed total thrombotic occlusion of mid to distal RCA. He underwent successful revascularization with LEIDY x1. Review of Systems Narrative: CONSTITUTIONAL: No fever chills weight loss or gain or night sweats. [] HEENT: Normocephalic, atraumatic.[] RESPIRATORY: No cough, sputum, hemoptysis or wheezing.[] CARDIOVASCULAR: Has chest pain, no PND, orthopnea, lower extremity edema, presyncope or syncope. [] GI: no nausea vomiting diarrhea. [] PHOTOLETTERING MACHINE OPERATOR: No numbness, tingling, weakness or loss of function in any part of the body. [] MUSCULOSKELETAL: No knee or joint pain or rashes. [] Medications/Allergies Home Medications Medication Instructions Recorded Confirmed Last Taken Type diphenhydramine 25 1 tab PO BEDTIME PRN tab 11/11/19 08/16/21 03/14/20 History mg-acetaminophen 500 mg tablet gabapentin 300 mg capsule 300 mg PO QID 11/11/19 08/16/21 03/14/20 History omeprazole 40 mg PO DAILY 08/16/21 08/16/21 Unknown History Allergies Allergy/AdvReac Type Severity Reaction Status Date / Time No Known Allergies Allergy Verified 08/16/21 10:07 PFSH Acute PFSH: Medical History (Updated 08/16/21 @ 10:51 by Keenan Simons M.D) COPD (chronic obstructive pulmonary disease) History of squamous cell carcinoma Peripheral vascular disease of extremity Tobacco abuse Surgical History History of appendectomy History of back surgery History of cholecystectomy History of testicular surgery 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 Father No problems noted. Denies family history of CAD (coronary artery disease) Cancer Social History Smoking and tobacco status: current every day smoker cigarettes Alcohol intake: former Household members: spouse Marital status: service: Yes branch: [employer] Physical Exam Narrative: EXAM NARRATIVE: GENERAL: Patient is alert, awake and oriented x3. [] NECK: No jugular vein distension. [] HEENT: No cyanosis. No icterus. No pallor. [] HEART: Regular S1 and S2. No murmur, rub or gallop. [] LUNGS: Clear to auscultate bilaterally. [] ABDOMEN: Soft, nontender and nondistended. Positive bowel sounds. No guarding, rebound or tenderness. [] CENTRAL NERVOUS SYSTEM: Grossly nonfocal. [] EXTREMITIES: Lower extremities with 1+ edema bilaterally. Pulses palpable in the lower extremities, both dorsalis pedis and posterior tibial. [] Data : 08/16/21 04:44 08/16/21 04:44 A&P Assessment and plan (1) STEMI (ST elevation myocardial infarction): Status: Acute (2) Peripheral vascular disease: Status: Acute (3) COPD (chronic obstructive pulmonary disease): Status: Acute Patient presented with acute ST elevation [place] involving inferior wall. Coronary angiogram showed total thrombotic occlusion of mid to distal RCA. He underwent successful revascularization with LEIDY x1. Transfer to ICU. Aspirin Plavix for at least 1 year. High intensity statin therapy. His heart rate and blood pressure are on the lower side. We will hold off on metoprolol at this time. Order echocardiogram. Attestations 2 Medical Necessity Statement*: Care expected to cross 2 midnights. Patient had presented with acute ST elevation [place] with the total thrombotic occlusion of mid to distal RCA. He underwent successful revascularization with LEIDY x1. Coding Level of Care Code Acute Busher Helper for Merlyn Hernandez Diagnoses STEMI (ST elevation myocardial infarction) I21.3 Peripheral vascular disease I73.9 COPD (chronic obstructive pulmonary disease) J44.9
--- NOTE | 2021-08-15 10:57 | ED_ITS ---
HPI - Chest Pain General: Chief Complaint: Chest Pain Stated Complaint: STEMI Time Seen by Provider: 08/15/21 10:36 History of Present Illness: HPI narrative: 65-year-old male presents from [facility]. Patient has acute ST elevation DE they contacted us at the time of transfer. He had not received Plavix but was on a heparin drip on arrival. He was still having chest discomfort. STEMI activation was made prior to patient's arrival cardiology with in the department and at the bedside at the time patient arrived in the emergency room. Repeat EKG confirmed STEMI cardiology concurs and will proceed to the Delivery Mgr. MD complaint: chest pain Onset (ago): minute(s) Timing of current episode: constant Prior episodes: Yes Onset: during rest Pain location: substernal and left chest Pain radiation: right arm, left arm, left shoulder and right shoulder Relieving factors: nothing Exacerbating factors: nothing Associated symptoms: Deny abdominal pain, diaphoresis, dyspnea, fever(s), leg edema, nausea, palpitations, sense of impending doom, syncope or vomiting Treatment prior to arrival: aspirin, nitroglycerin and oxygen Review of Systems Const: Denies: fever(s) or diaphoresis ENMT: Denies: throat pain, ear or mastoid pain, nasal discharge or nasal congestion Card: Denies: palpitations or syncope Resp: Denies: dyspnea GI: Denies: abdominal pain, nausea or vomiting : Denies: flank pain, dysuria, urinary frequency or urinary urgency Skin/Breast: Denies: rash or pruritus PFSH ED PFSH: Medical History (Updated 08/17/21 @ 08:42 by Jd Prince DO) COPD (chronic obstructive pulmonary disease) History of squamous cell carcinoma Peripheral vascular disease of extremity Tobacco abuse Surgical History History of appendectomy History of back surgery History of cholecystectomy History of testicular surgery 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 Father No problems noted. Denies family history of CAD (coronary artery disease) Cancer Social History Smoking and tobacco status: current every day smoker cigarettes Alcohol intake: former Household members: spouse Marital status: service: Yes branch: [employer] Physical Exam Const: COMMON NORMALS: no acute distress GENERAL APPEARANCE: cooperative and comfortable ORIENTATION/CONSCIOUSNESS: Yes awake, Yes oriented to person, Yes oriented to place and Yes oriented to time HENMT: COMMON NORMALS: normocephalic, atraumatic, hearing grossly normal bilaterally and external ears normal HEAD & SCALP: normocephalic and atraumatic EXTERNAL EAR: Yes external ears normal Neck/C-Spine: COMMON NORMALS: no JVD Resp: COMMON NORMALS: normal respiratory effort, No retractions, No use of accessory muscles and clear to auscultation bilaterally AUSCULTATION: clear to auscultation bilaterally Cardio: COMMON NORMALS: no JVD, regular rate, regular rhythm and No murmurs present (Cardio) RATE: regular rate RHYTHM: regular rhythm GI: COMMON NORMALS: Soft to palpation and No hepatosplenomegaly present AUSCULTATION: Yes normoactive bowel sounds PALPATION: Yes Soft to palpation, No Tenderness to palpation present (GI), No Guarding due to palpation present (GI) and Yes No hepatosplenomegaly present Extremity: COMMON NORMALS: normal to inspection, capillary refill normal, no clubbing, cyanosis or edema, no calf tenderness and no pedal edema Neuro: SENSORIUM/ORIENTATION: Yes oriented to person, Yes oriented to place and Yes oriented to time Skin: COMMON NORMALS: no rashes or lesions noted GENERAL SKIN EXAM: no rashes or lesions noted Course Vital Signs: Vital signs: Vital Signs Temperature 97.9 F 08/17/21 07:00 Pulse Rate 67 08/17/21 08:00 Respiratory Rate 14 08/17/21 08:00 Blood Pressure 101/70 08/17/21 08:00 Pulse Oximetry 97 08/17/21 08:00 MDM - Chest Pain MDM Narrative: Medical decision making narrative: Transfer from outside facility. Dr. 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
--- NOTE | 2021-08-15 12:37 | ECG_ITS ---
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 Measurements Intervals [place] Rate: 59 P: 69 MT: 181 QRS: 55 QRSD: 94 T: 65 QT: 457 QTc: 456 Interpretive Statements SINUS BRADYCARDIA WITH OCCASIONAL VENTRICULAR PREMATURE COMPLEXES MINIMAL ST DEPRESSION [0.025+ mV ST DEPRESSION] Compared to ECG 08/15/2021 10:36:31 Ventricular premature complex(es) now present Sinus arrhythmia no longer present ST (T wave) deviation still present Electronically Signed On 08-15-2021 22:51:56 FORGING PRESS OPERATOR by Kevin Fernández M.D. [id number]
--- NOTE | 2021-08-15 12:37 | XR_ITS ---
WS: [id number] Exam: XR chest [id number] [id number] Date/Time of Exam: 08/15/2021 12:42 PM Reason For Exam: Post TN Comparison 03/15/2020. The lungs are clear and fully inflated. Normal cardiomediastinal structures. No pleural effusions. [place] elements are intact. XR/XR chest 1V [id number] IMPRESSION: 1. No acute cardiopulmonary finding. No change.
--- NOTE | 2021-08-15 12:48 | PC.NURSE ---
refused all vax.
--- NOTE | 2021-08-15 13:46 | PC.NURSE ---
right ac,, continues to , previous iv start attemt, ooze what appears to be blood. 3rd pressure dressing applied after pressure held for 5 min. and
[2021-08-15 14:31] LABS: Basophils % 0.2 %; Eosinophils # 0.1 10^3/uL (0.0-0.8); Eosinophils % 0.8 %; Hemoglobin 14.1 g/dL (11.7-16.6); Lymphocytes # 1.7 10^3/uL (0.8-4.8); Lymphocytes % 13.7 %; Mean Corpuscular HGB Conc 34.4 g/dL (30.0-36.0); Mean Corpuscular Hemoglobin 34.8 pg (28.0-34.0); Mean Corpuscular Volume 101.2 fl (80-94); Mean Platelet Volume 8.9 fL (7.4-10.4); Monocytes # 0.7 10^3/uL (0.2-0.9); Monocytes % 5.3 %; Neutrophils # 10.05 10^3/uL (1.8-7.7); Neutrophils % 79.7 %; Nucleated Red Blood Cells % 0 %; Platelet Count 263 10^3/cmm (130-400); Red Blood Count 4.05 10^6/uL (4.1-5.3); White Blood Count 12.6 10^3/uL (4.0-10.0)
--- NOTE | 2021-08-15 14:43 | USCV_ITS ---
Jewel Connell Age: 65 Gender: M : 1955 Exam Date: 08/15/2021 15:13 Ordering Phys: Keenan Simons M.D ([email or web address]) Technologist: Dionna Trejo [place] [facility] [place]: POST STEMI BP: 125 / 40 HR: 59 Rhythm: Sinus Technical Quality: Adequate MEASUREMENTS (Male / Female) Normal Values 2D ECHO LV Diastolic Diameter PLAX 5.1 cm 4.2 - 5.9 / 3.9 - 5.3 cm LV Systolic Diameter PLAX 3.9 cm IVS Diastolic Thickness 1.0 cm 0.6 - 1.0 / 0.6 - 0.9 cm IVS Systolic Thickness 1.8 cm LVPW Diastolic Thickness 1.4 cm 0.6 - 1.0 / 0.6 - 0.9 cm LVPW Systolic Thickness 1.8 cm LVOT Diameter 2.0 cm LV Ejection Fraction 2D Teich 46.0 % LV Ejection Fraction MOD 2C 36.9 % LV Ejection Fraction 2C AL 42.2 % LA Diameter 3.3 cm LA Width 3.0 cm LA Height 5.5 cm RA Width 4.7 cm RA Height 4.9 cm Aorta at Sinotubular Diameter 3.4 cm M-MODE Aortic Annulus Diameter 2.8 cm LA Ao Ratio MM 1.1 MV E Point Septal Separation 1.0 cm DOPPLER AV Peak Velocity 144.0 cm/s LVOT Peak Velocity 84.0 cm/s AV Area Cont Eq vti 1.8 cm squared AV Area Cont Eq pk 1.9 cm squared MV Peak Velocity 83.0 cm/s MV Area PHT 2.5 cm squared Mitral E to A Ratio 0.9 MV E' Velocity 33.5 cm/s Mitral E to MV E' Ratio 6.4 Mitral E to LV E' Lateral Ratio 5.2 Mitral E to LV E' Septal Ratio 8.6 TR Peak Velocity 213.8 cm/s TR Peak Gradient 18.3 mmHg TR Mean Velocity 182.0 cm/s TR Mean Gradient 14.1 mmHg TR Velocity Time Integral 63.7 cm TV Peak E Velocity 50.0 cm/s Right Atrial Pressure 3.0 mmHg Pulmonary Artery Systolic Pressu 21.3 mmHg PV Peak Velocity 82.0 cm/s RV Acceleration Time 0.1 s RV Ejection Time 0.3 s RV AcT/ET 0.4 FINDINGS Left Ventricle Normal left ventricular size. LV systolic function is mildly reduced with EF of 45-50%. Moderate hypokinesis of the basal to mid inferior wall and inferoseptal harper. Normal diastolic filling pattern. Right Ventricle The right ventricle is normal in size and function. Right Atrium The right atrium is normal in size. Left Atrium The left atrium is normal in size. Mitral Valve Structurally normal mitral valve without significant stenosis or prolapse. There is trace mitral regurgitation. Aortic Valve Aortic valve is thickened. No significant stenosis. There is mild to moderate aortic regurgitation. Tricuspid Valve Structurally normal tricuspid valve without significant stenosis. Trace tricuspid regurgitation. Insufficient TR jet to calculate RVSP Pulmonic Valve Structurally normal pulmonic valve without significant stenosis. There is no pulmonic regurgitation. Pericardium Normal pericardium without effusion. Aorta Normal ascending aorta dimension. CONCLUSIONS LV systolic function is mildly reduced with EF of 45-50%. Above mentioned regional wall motion abnormalities seen Normal diastolic function Trace mitral regurgitation Mild to moderate aortic regurgitation Trace tricuspid regurgitation Compared to prior echocardiogram from 03/16/2020, LV systolic function has mildly decreased and aortic regurgitation appears to be mild to moderate Keenan Simons MD (Electronically Signed) Final Date: 15 August 2021 16:59 S
[2021-08-15 15:06] LABS: Troponin(5th) Baseline 3842 ng/L (0-15)
[2021-08-15 15:13] LABS: Alanine Aminotransferase 31 U/L (0-41); Alkaline Phosphatase 91 IU/L (40-130); Anion Gap 17.4 (5-19); Aspartate Amino Transferase 158 U/L (0-40); Blood Urea Nitrogen 20 mg/dL (8-23); Calcium 8.8 mg/dL (8.5-10.5); Carbon Dioxide 21 mmol/L (22-29); Chloride 98 mmol/L (98-107); Globulin 2.8 g/dL (1.3-4.6); Glomerular Filtration Rate 113.2 mL/min (90-130); Glucose 92 mg/dL (65-115); Osmolality Calculated 278 mOsm/kg (285-295); Potassium 3.4 mmol/L (3.5-5.1); Sodium 133 mmol/L (136-145); Total Bilirubin 0.7 mg/dL (0.15-1.2); Total Protein 6.8 g/dL (6.6-8.7)
--- NOTE | 2021-08-15 15:25 | PC.NURSE ---
iv fluids hanging came from laboratory specialist.
--- NOTE | 2021-08-15 15:25 | PC.NURSE ---
1200:close monitoring of tr band and right radial cath site. no oozing noted, right upper arm, a.c. space continues to ooze. will monitor.
--- NOTE | 2021-08-15 15:27 | PC.NURSE ---
continue to monitor right radial cath site w/o oozing. right ac site has stopped oozing. will monitor.
[2021-08-15] MEDS: nitroglycerin 0.4 mg sublingual Tablet SUBLINGUAL (15:58)
--- NOTE | 2021-08-15 16:05 | PC.NURSE ---
c/o chest heaviness, 1st and 2nd s.l. ntg given
--- NOTE | 2021-08-15 16:15 | PC.NURSE ---
2 s.l. ntg w/o relief from chest pressure. dr. salas notified
--- NOTE | 2021-08-15 16:37 | ECG_ITS ---
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 Measurements Intervals [place] Rate: 53 P: 63 [place]: 184 QRS: 57 QRSD: 97 T: 68 QT: 480 QTc: 453 Interpretive Statements SINUS BRADYCARDIA ST elevation inferior leads may suggest acute injury MINIMAL ST DEPRESSION [0.025+ mV ST DEPRESSION] PROLONGED QT INTERVAL Compared to ECG 08/15/2021 14:40:07 Prolonged QT interval now present Ventricular premature complex(es) no longer present ST (T wave) deviation still present No significant change from the EKG on 08/15/2021 Electronically Signed On 08-15-2021 22:53:28 RN MANAGER by Kevin Fernández M.D. [id number]
[2021-08-15] MEDS: lidocaine 2% viscous 15 ML, aluminum-mag hydrox-simethicon 30 ML, sucralfate oral liq 1 GM PO (16:41)
--- NOTE | 2021-08-15 17:29 | PC.NURSE ---
1715: tr bnd titrated down.and removed no oozing noted.
--- NOTE | 2021-08-15 17:32 | PC.NURSE ---
1730 no oozing from left wrist, or hematoma. right ac site w/o oozing.
[2021-08-15] MEDS: atorvastatin 40 mg Tablet 80 MG PO (20:01)
[2021-08-15] MEDS: sodium chloride 0.9% 1,000 ML 100 ML IV (20:05)
[2021-08-15 21:56] LABS: Troponin T (5th) Once 2799 ng/L (0-15)
[2021-08-16] VITALS (62 sets, daily range): BP systolic 83–120; BP diastolic 46–76; PULSE 54–78; RESP 7–24; TEMP 36.6–36.9; O2SAT 94–100; BMI 24.5
--- NOTE | 2021-08-16 05:40 | PC.NURSE ---
Shift Summary Patient had an uneventful night. He was able to sleep some, and had no reports of pain throughout the night. No wounds or skin issues are noted at this time. Patient is alert and oriented x4. He had 480 mls intake and 550 mls of dark yellow urine out overnight by urinal. Both left and right hand IV sites are saline locked at this time.
[2021-08-16 05:44] LABS: Basophils % 0.3 %; Eosinophils # 0.2 10^3/uL (0.0-0.8); Eosinophils % 1.6 %; Hemoglobin 13.4 g/dL (11.7-16.6); Lymphocytes # 1.2 10^3/uL (0.8-4.8); Lymphocytes % 12.2 %; Mean Corpuscular HGB Conc 33.5 g/dL (30.0-36.0); Mean Corpuscular Hemoglobin 33.9 pg (28.0-34.0); Mean Corpuscular Volume 101.3 fl (80-94); Mean Platelet Volume 9.1 fL (7.4-10.4); Monocytes # 0.8 10^3/uL (0.2-0.9); Monocytes % 8.5 %; Neutrophils # 7.64 10^3/uL (1.8-7.7); Nucleated Red Blood Cells % 0 %; Platelet Count 221 10^3/cmm (130-400); Red Blood Count 3.95 10^6/uL (4.1-5.3); Red Cell Distribution Width 13.9 % (12.1-15.1); White Blood Count 9.9 10^3/uL (4.0-10.0)
[2021-08-16 06:05] LABS: Anion Gap 14.2 (5-19); Blood Urea Nitrogen 17 mg/dL (8-23); Calcium 8.4 mg/dL (8.5-10.5); Carbon Dioxide 22 mmol/L (22-29); Chloride 104 mmol/L (98-107); Glucose 111 mg/dL (65-115); Osmolality Calculated 284 mOsm/kg (285-295); Potassium 4.2 mmol/L (3.5-5.1); Sodium 136 mmol/L (136-145)
[2021-08-16] MEDS: clopidogrel 75 mg Tablet PO (08:53)
[2021-08-16] MEDS: aspirin 81 mg EC Tablet PO (08:53)
[2021-08-16] MEDS: acetaminophen 325 mg Tablet 650 MG PO ×2 (11:09→17:20)
--- NOTE | 2021-08-16 11:53 | PM.PN ---
Subjective Subjective: Interval history: Patient is overall doing well. Denies any significant chest pain. His labs are normal. Vitals/I&O/Wt Last Vital Signs Temp 97.9 F 08/16/21 07:00 Pulse 70 08/16/21 09:00 Resp 23 H 08/16/21 09:00 BP 107/71 08/16/21 09:00 Pulse Ox 95 08/16/21 09:00 08/15/21 08/16/21 08/16/21 22:59 06:59 14:59 Intake Total 360 / 960 871.667 / 1831.667 400 / 400 Output Total 550 / 775 800 / 800 Balance 360 / 735 321.667 / 1056.667 -400 / -400 Weight last 48 hrs Weight 176 lb 3 oz Physical Exam Narrative: EXAM NARRATIVE: GENERAL: Patient is alert, awake and oriented x3. [] NECK: No jugular vein distension. [] HEENT: No cyanosis. No icterus. No pallor. [] HEART: Regular S1 and S2. No murmur, rub or gallop. [] LUNGS: Clear to auscultate bilaterally. [] ABDOMEN: Soft, nontender and nondistended. Positive bowel sounds. No guarding, rebound or tenderness. [] CENTRAL NERVOUS SYSTEM: Grossly nonfocal. [] EXTREMITIES: Lower extremities with 1+ edema bilaterally. Pulses palpable in the lower extremities, both dorsalis pedis and posterior tibial. [] Data : 08/17/21 04:20 08/17/21 04:20 A&P Assessment and plan (1) STEMI (ST elevation myocardial infarction): Status: Acute (2) Peripheral vascular disease: Status: Acute (3) COPD (chronic obstructive pulmonary disease): Status: Acute Patient presented with acute ST elevation [place] involving inferior wall. Coronary angiogram showed total thrombotic occlusion of mid to distal RCA. He underwent successful revascularization with LEIDY x1. Patient is stable to be transferred out of ICU to CSU today. Aspirin Plavix for at least 1 year. High intensity statin therapy. He is staying bradycardic. We will hold off on beta-blockers. Echocardiogram shows a mildly reduced LV systolic function with EF of 45 to 50%. Attestations Medical Necessity Statement*: Care expected to cross 2 midnights. Patient presented with acute ST elevation [place] with thrombotic occlusion of mid to distal RCA. He is status post revascularization with LEIDY x1. Coding Level of Care Code Acute Brewery Pumper for [facility] Fwd Diagnoses STEMI (ST elevation myocardial infarction) I21.3 Peripheral vascular disease I73.9 COPD (chronic obstructive pulmonary disease) J44.9
[2021-08-16] MEDS: atorvastatin 40 mg Tablet 80 MG PO (20:36)
[2021-08-16] MEDS: temazepam 15 mg Capsule PO (20:37)
[2021-08-17] VITALS (9 sets, daily range): BP systolic 90–121; BP diastolic 51–71; PULSE 58–69; RESP 14–20; TEMP 36.6–36.9; O2SAT 97–99
[2021-08-17 05:07] LABS: Basophils % 0.5 %; Eosinophils # 0.2 10^3/uL (0.0-0.8); Eosinophils % 2.2 %; Hemoglobin 14.2 g/dL (11.7-16.6); Lymphocytes # 1.4 10^3/uL (0.8-4.8); Lymphocytes % 16.1 %; Mean Corpuscular Hemoglobin 33.6 pg (28.0-34.0); Mean Corpuscular Volume 101.7 fl (80-94); Mean Platelet Volume 9.1 fL (7.4-10.4); Monocytes # 0.7 10^3/uL (0.2-0.9); Monocytes % 7.6 %; Neutrophils # 6.32 10^3/uL (1.8-7.7); Neutrophils % 73.3 %; Nucleated Red Blood Cells % 0 %; Platelet Count 246 10^3/cmm (130-400); Red Blood Count 4.23 10^6/uL (4.1-5.3); Red Cell Distribution Width 13.7 % (12.1-15.1); White Blood Count 8.6 10^3/uL (4.0-10.0)
[2021-08-17 05:31] LABS: Anion Gap 16.3 (5-19); Blood Urea Nitrogen 13 mg/dL (8-23); Carbon Dioxide 23 mmol/L (22-29); Chloride 104 mmol/L (98-107); Glomerular Filtration Rate 135.2 mL/min (90-130); Glucose 97 mg/dL (65-115); Osmolality Calculated 288 mOsm/kg (285-295); Potassium 4.3 mmol/L (3.5-5.1); Sodium 139 mmol/L (136-145)
--- NOTE | 2021-08-17 09:07 | PM.DCS ---
Discharge Providers Date of Admission: 08/15/21 11:49 Date of Discharge: August 17, 2021 Attending Provider at Admission: Keenan Simons M.D Attending Provider at Discharge: Keenan Simons M.D Primary Care Provider: Aidan Aquino Diagnoses at Discharge Discharge Diagnosis (1) STEMI (ST elevation myocardial infarction): (2) Peripheral vascular disease: Status: Acute (3) COPD (chronic obstructive pulmonary disease): Status: Acute Reason for Visit Reason for Visit: STEMI Brief History: 65 year old male with past medical history of peripheral artery disease with left-sided femoropopliteal bypass, GI bleed history, COPD who presented with severe chest pain [facility] in [place]. He was transferred from there as his EKG showed ST elevations in inferior leads. According to patient's family he was having on and off chest pains for 8 to 10 hours however about 4 hours prior to presentation to the ER, he developed severe pain. It was radiating to both arms. Variety Lathe Operator was activated and he was emergently taken to the Variety Lathe Operator. Hospital Course Hospital Course 65 year old male with past medical history of peripheral artery disease with left-sided femoropopliteal bypass, GI bleed history, COPD who presented with severe chest pain [facility] in [place]. He was transferred from there as his EKG showed ST elevations in inferior leads. According to patient's family he was having on and off chest pains for 8 to 10 hours however about 4 hours prior to presentation to the ER, he developed severe pain. It was radiating to both arms. Variety Lathe Operator was activated and he was emergently taken to the Variety Lathe Operator. Coronary angiogram showed total thrombotic occlusion of mid to distal RCA. He underwent successful revascularization with LEIDY x1. Echocardiogram showed mildly reduced LV systolic function with EF of 45 to 50%. He stayed in the hospital without any complications. He was discharged in a stable condition on aspirin and Plavix. He could not be put on metoprolol because of bradycardia and he was staying borderline hypotensive. Physical Exam Narrative: EXAM NARRATIVE: GENERAL: Patient is alert, awake and oriented x3. [] NECK: No jugular vein distension. [] HEENT: No cyanosis. No icterus. No pallor. [] HEART: Regular S1 and S2. No murmur, rub or gallop. [] LUNGS: Clear to auscultate bilaterally. [] ABDOMEN: Soft, nontender and nondistended. Positive bowel sounds. No guarding, rebound or tenderness. [] CENTRAL NERVOUS SYSTEM: Grossly nonfocal. [] EXTREMITIES: Lower extremities with no edema bilaterally. Pulses palpable in the lower extremities, both dorsalis pedis and posterior tibial. [] Discharge Data Data Completed and Pending: Completed Studies During Hospitalization Category Date Time Status XR chest 1V [id number] Routine Exams 08/15/21 12:37 Completed CV. echo complete * [id number] Routine Ultrasound 08/15/21 14:43 Completed Pending at discharge Category Date Time Status TACKER OFF request for service Stat Exams 08/15/21 10:41 Taken Basic Metabolic P leona AM LABS Lab 08/18/21 04:00 Ordered Complete Blood Co unt w/Auto AM LABS Lab 08/18/21 04:00 Ordered Labs from last 24 hours 08/17/21 08/17/21 04:20 04:20 WBC 8.6 RBC 4.23 Hgb 14.2 Hct 43.0 MCV 101.7 H MCH 33.6 MCHC 33.0 RDW 13.7 Plt Count 246 MPV 9.1 Neut % (Auto) 73.3 Lymph % (Auto) 16.1 Gonzales % (Auto) 7.6 Eos % (Auto) 2.2 Baso % (Auto) 0.5 Neut # (Auto) 6.32 Lymph # (Auto) 1.4 Gonzales # (Auto) 0.7 Eos # (Auto) 0.2 Baso # (Auto) 0.0 Nucleated RBC % (a uto) 0 Nucleated RBCs # 0.0 Sodium 139 Potassium 4.3 Chloride 104 Carbon Dioxide 23 Anion Gap 16.3 BUN 13 Creatinine 0.6 L GFR Calculation 135.2 H Glucose 97 Calculated Osmolal ity 288 Calcium 9.0 Vitals: Last Vital Signs Temp 97.9 F 08/17/21 07:00 Pulse 67 08/17/21 08:00 Resp 14 08/17/21 08:00 BP 101/70 08/17/21 08:00 Pulse Ox 97 08/17/21 08:00 Discharge Plan Discharge Patient Disposition: Home Condition: Stable Prescriptions: New aspirin 81 mg Tablet,Delayed Release (Dr/Ec) 81 mg PO DAILY Qty: 90 RF: 2 atorvastatin 40 mg Tablet 80 mg PO BEDTIME Qty: 90 RF: 3 clopidogrel 75 mg Tablet 75 mg PO DAILY Qty: 90 RF: 2 nitroglycerin 0.4 mg Tablet, Sublingual 0.4 mg sublingual Q5M PRN (Reason: Chest Pain) Qty: 30 RF: 0 Continued gabapentin 300 mg capsule 300 mg PO QID RF: 0 diphenhydramine-acetaminophen [Tylenol PM Extra Strength] 25-500 mg tablet 1 tab PO BEDTIME PRN (Reason: Sleep) RF: 0 omeprazole 40 mg capsule,delayed release(DR/EC) 40 mg PO DAILY RF: 0 Discharge Orders: Discharge Order (Routine); Ordered 08/17/21 Ordered By: Keenan Simons Referrals: Keenan Simons M.D [Physician] - 09/25/21 2:00 pm (FOLLOW UP WITH [facility]IBRAHIM DEGROOT [facility] [phone] SCHEDULED APPOINTMENT ,Friday AT TIME OF 2:00 PM) Siena Perez FNP [Nurse Practitioner] - 08/27/21 8:45 am (THIS FOLLOW UP APPOINTMENT SCHEDULED .SIENA PEREZ APN Friday AT TIME OF 08:45 FOR WOUND CHECK,LAB WORK AND FOLLOW UP.) Discharge Diet: Cardiac Discharge Activity: Increase activity as tolerated Patient Instructions: Aspirin (By mouth), Nitroglycerin, Rapid Release (By mouth), Atorvastatin (By mouth), Clopidogrel (By mouth) (Plavix), Coronary Angioplasty (DC), How to Stop Smoking (DC), COPD Stoplight, Opioid Safety, Post Angiogram Home Care Instructions, Post Heart Attack Stoplight Activity Restrictions/Additional Instructions: Please do not lift more than 5 pounds of weight with the right hand. Discharge Attestations Time Spent in Discharge Care*: greater than 30 min Status at Discharge: Cognitive status at discharge: cognitively intact, Behavioral status at discharge: independent in ADL's, Quality Metrics Clinical Quality Measures During this hospital stay, did patient experience: AMI Clinical Trial Participant: No Contraindication to aspirin (AMI): Aspirin given Contraindication to statin: Statin prescribed Coding Level of Care Code Acute Chg FW DC note Diagnoses STEMI (ST elevation myocardial infarction) I21.3 Peripheral vascular disease I73.9 COPD (chronic obstructive pulmonary disease) J44.9
[2021-08-17] MEDS: aspirin 81 mg EC Tablet PO (09:19)
[2021-08-17] MEDS: clopidogrel 75 mg Tablet PO (09:19)
== END 2021-08-17 11:22 | disposition home or self-care (01) | DRG 247 ==
LOC: ER 10:36 → CCL 10:41 → ICU 11:50
PROVIDERS: Admitting Provider Internal Medicine; Emergency Provider Family Medicine; PCP Family Medicine; Visit Provider Internal Medicine
PROC: 027034Z Dilation of Coronary Artery, One Artery with Drug-eluting Intraluminal Device, Percutaneous Approach (ICD-10-PCS; principal; 2021-08-15 10:30)
PROC: 027034Z Dilation of Coronary Artery, One Artery with Drug-eluting Intraluminal Device, Percutaneous Approach (ICD-10-PCS; 2021-08-15 10:30)
DX: I21.11 ST elevation (STEMI) myocardial infarction involving right coronary artery (principal); J44.9 Chronic obstructive pulmonary disease, unspecified; Z85.828 Personal history of other malignant neoplasm of skin; I73.9 Peripheral vascular disease, unspecified; F17.210 Nicotine dependence, cigarettes, uncomplicated; Z92.3 Personal history of irradiation; Z98.890 Other specified postprocedural states
CPT/HCPCS: 36415; 71045; 80048; 80053; 84484; 85025; 85347; 93005; 93306; 93454; C1725; C1769; C1874; C1887; C1894; C9600; J1644; J2250; J3010; J3246; J3490; J7030; Q9967

== ENCOUNTER → 2021-08-27 09:49 | Outpatient (BNVA) | payer MEDICARE, MEDICAID, SELFPAY | PROVIDERS: PCP Family Medicine; Visit Provider Nurse Practitioner Family | DX: I70.209 Unspecified atherosclerosis of native arteries of extremities, unspecified extremity (principal); I73.9 Peripheral vascular disease, unspecified; I25.119 Atherosclerotic heart disease of native coronary artery with unspecified angina pectoris | CPT/HCPCS: 80048 ==

== ENCOUNTER → 2021-10-29 11:10 | Outpatient (BNVA) | payer MEDICARE, MEDICAID, SELFPAY | PROVIDERS: PCP Family Medicine; Referring Provider Internal Medicine; Visit Provider Internal Medicine | DX: I25.10 Atherosclerotic heart disease of native coronary artery without angina pectoris (principal); R07.9 Chest pain, unspecified; I20.0 Unstable angina; Z20.822 Contact with and (suspected) exposure to COVID-19 | CPT/HCPCS: 80048; 85025; 85610; 87635 ==

== ENCOUNTER 2021-10-31 07:30 | Outpatient (CLI) | payer MEDICARE, MEDICAID, SELFPAY ==
[2021-10-31] VITALS (18 sets, daily range): BP systolic 102–118; BP diastolic 62–78; PULSE 55–74; RESP 13–22; TEMP 36.3; O2SAT 95–99; BMI 25.6
--- NOTE | 2021-10-31 07:30 | XACV_ITS ---
Ht: 180 cm Wt: 83 kg BSA: 2.05 m2 Gender: Male : 1955 Any Known Allergies: No known allergies Exam Priority: Routine Procedure(s): Procedure Description: Diagnostic procedure Procedure Description: Left Heart Catheterization Procedure Description: Left ventriculography Procedure Description: Coronary Angiography Procedure Description: Pressure Wire Diagnostic Cath Status: Elective Diagnostic Findings * Left Main has no disease. * Left Anterior Descending has no disease. * Circumflex has no disease. * Proximal Right Coronary Artery to Mid Right Coronary Artery: moderate 50% stenosis, ENE: 3 flow. * Coronary angiography shows right dominance. Interventional Findings * Procedure detail: We engaged RCA with a JR4 guide catheter. After zeroing and equalizing the IFR wire, it was advanced into the distal RCA. IFR was obtained and was found to be 0. 97. At this time IFR wire was removed and final angiogram was performed. Guide catheter was removed and TR band was applied to achieve hemostasis. Patient left the Writer Producer in a stable condition.. Conclusions 1. Moderate proximal RCA stenosis. 2. IFR is nonischemic and is 0.97.. 3. Patent prior RCA stent. 4. Mild left ventricular systolic dysfunction. Ejection fraction of 45%. Recommendations * Aspirin and Plavix daily. * Outpatient cardiology follow-up in 4 weeks. Interventional RX Recommendation: medical therapy and/or counseling Diagnostic RX Recommendation: medical therapy and/or counseling Anticoagulation: Heparin Ventriculography Ejection Fraction: 45.0 % Pressures Phase:Rest AO : 115 / 62 ( 84 ) @ 6:51:00 AM 117 / 54 ( 84 ) @ 6:51:00 AM LV : 114 / 0 / 14 @ 6:50:00 AM 132 / 5 / 23 @ 6:51:00 AM 119 / 5 / 21 @ 6:51:00 AM Valves Phase:DefaultPhase AV : 2.0 @ 8:58:24 AM AV Mean Gradient: 6.0 @ 8:58:24 AM Clinical Evaluation EBL: 5mL-10mL Procedural Details Procedure Consent Obtained. Admit Source: Out Patient. Current Diagnosis : Unstable angina. Pre-Procedure Time Out. Identified patient by full name and date of as verbalized by the patient/guarantor. Does the consent match the physician's order: Yes. Accurate & Complete Informed Consent: Yes. Inpatient/Outpatient History & Physical on Chart: Yes. If H&P is completed, is and addenduem needed: No; If yes, is the addendum complete: N/A. Visualize and Verify Site with Patient/Guarantor: N/A. Relevant Radiology Images available: N/A. The risks, benefits, and alternatives of sedation and/or procedure were discussed by physician. The patient agrees to continue. Procedure started. [facility] Clinical Fraility Score: 3: Managing Well. Writer Producer Indications: Worsening Angina. Chest Pain Symptom Assessment: Typical Angina Symptoms. Cardiovascular Instability: No, stable. Correct patient, site and procedure confirmed by cath team. Current diagnosis: Unstable angina. PERRLA. Strong, equal hand customer experience retail clerk bilaterally. Lungs clear x 5 lobes. IV Site on Arrival: 20 gauge in the right anticubital. IV Fluids: 0.9% NaCl at KVO. 0 mL infused prior to manager cardiac cath. Pre Procedural Pulses: bilateral radial was 3+. Pre Procedural Pulses: bilateral posterior tibial was Doppled. Pre Procedural Pulses: bilateral dorsalis pedis was Doppled. Oxygen started at 3liters/min via nasal canula. bilateral groins was prepped with chloroprep then draped in the usual sterile fashion. Baseline sample Acquired. HR: 63 BPM. Physician notified. Baseline sample Acquired. HR: 67 BPM. Family updated by . Equipment: 5F - Femoral. Heparinized Saline (2 units/mL), 1000 mL bag. Cardiac Cath Pack. ACIST Manifold Kit Model BT 2000. Equipment: 5F - Radial. Equipment: 6F - Radial. Equipment: 6F - Femoral. Physician arrived. Physician scrubbed in. Immediate Pre-Procedure Time Out. Correct Patient: Yes; Correct Procedure: Yes; Correct Site: Yes; Correct Patient Position: Yes; Correct Supplies: Yes; Dried Flammable Prep: Yes; Blood Products Available: N/A;. Lidocaine 1% infiltrated to the right radial. Arterial access obtained. A TR 5FR Radial TIG 4.0 110cm was advanced over the wire and used for right and left coronary angiography. Multiple views taken of left coronary artery. Catheter redirected to the RCA. Multiple views taken of right coronary artery. Catheter removed over the wire. Inventory is CRD 6FR JR 4 GUIDE 100cm. Inventory: Endoflatory, Copilot, Pressure wire. 6 faroese JR 4 guide catheter was inserted over the wire. Guide seated in the RCA. IFR guidewire was advanced through the guide catheter to lesion in the prox RCA. IFR normalized then advanced across the lesion. IFR spot is 0.97 IFR pullback is 0.97. Pressure wire removed. Angiography performed. Guide removed over the wire. A CRD 5F 145 Angled Pig Diagnostic Catheter was advanced over the wire and used for Ventriculography. EDP Sample taken: LV 114/0,14; HR: 70 BPM; SpO2: 99%. LV gram performed in MOON @ 10 mL/second for a total of 30 mL. Patient EF: Normal. EDP Sample taken: LV Off; HR: 0 BPM; SpO2: 99%. EDP Sample taken: LV 132/5,23; HR: 57 BPM; SpO2: 100%. Pullback taken: LV 119/5,21; AO 115/62(84); Mean: 6mmHg, Peak to Peak: 2mmHg, SEP: 19sec/min; HR: 66 BPM; SpO2: 99%. Catheter removed over the standard wire. A TR Band was successful obtaining hemostatsis at the Right Radial artery insertion site. Physician review of films. Physician scrubbed out. TR band placed. Hemostasis obtained. Post Procedure: Pulses reassessed and unchanged. PERRLA. Strong, equal hand customer experience retail clerk bilaterally. No VTE prophylaxis required. Medication's Wasted: Lidocaine 1% = 18 mL. Medication's Wasted: Nitro = 49.8 mg. Total IV fluids: 274 mL. Fluoro: 4:06. Contrast type used: Visipaque 320 mgI/mL, 200 mL bottle. Post-op diagnosis: Moderated proximal RCA stenosis. Complications: None. Estimated blood loss: 5mL-10mL. Responsiveness - Normal response to verbal stimuli; alert and oriented, PERRLA. Airway - Unaffected, no intervention required; spontaneous ventilation. Circulation: W/N/L, pulses unchanged. Nausea/Vomiting: No. Procedure completed. Patient transferred by wheelchair to CPRU. Vital chart was stopped. Access Site Site: Right Radial artery Sheath Size: 6 Fr Hemostasis Method: TR Band Hemostasis Success: Successful Procedure Medications Start: 8:25 AM Stop: 8:25 AM Medication: Versed Amount: 1 mg Route: I.V. Start: 8:25 AM Stop: 8:25 AM Medication: Fentanyl Amount: 50 mcg Route: I.V. Start: 8:29 AM Stop: 8:29 AM Medication: Versed Amount: 1 mg Route: I.V. Start: 8:29 AM Stop: 8:29 AM Medication: Fentanyl Amount: 50 mcg Route: I.V. Start: 8:32 AM Stop: 8:32 AM Medication: Heparin Amount: 5000 units Route: I.V. Start: 8:31 AM Stop: 8:31 AM Medication: Nitrogylcerin Amount: 200 mcg Route: I.A. Start: 8:34 AM Stop: 8:34 AM Medication: 0.9% Saline Amount: 250 ml Route: I.V. bolus Start: 8:39 AM Stop: 8:39 AM Medication: Heparin Amount: 2000 units Route: I.V. I, the attending physician, have reviewed and verified all procedure medications. Yes, all medications given per verbal order History/Risk Factors Hypertension: No Dyslipidemia: Yes Peripheral Arterial Disease (PAD): Yes Myocardial Infarction ([place]): Yes Obesity: No Renal Disease: No Tobacco Use: Current/Recent(w/in 1 year) Prior Interventions PCI: Yes CABG: No Valve Surgery: No Report Signatures Finalized by Keenan Simons MD on 11/16/2021 03:43 PM
[2021-10-31] MEDS: diphenhydrAMINE 50 mg Capsule PO (07:50)
--- NOTE | 2021-10-31 08:24 | W.PM.OPSFHP ---
Same Day Surgery H&P Indication for Procedure/HPI DATE OF PROCEDURE: October 31, 2021 CHIEF COMPLAINT/INDICATIONFOR SURGICAL PROCEDURE: Worsening angina PREOP DIAGNOSIS: Left superficial femoral artery occlusion PLANNED PROCEDURE: Operation Date: 10/31/21 08:30 Proposed Procedures p Cardiac Catheterization(Left) - Keenan Simons M.D Possible percutaneous coronary intervention ?65 year old male with past medical history of peripheral artery disease with left-sided femoropopliteal bypass, GI bleed history, COPD who presented with severe chest pain and was found to have inferior leads ST elevation. Emergent cardiac cath was performed that showed total thrombotic occlusion of mid to distal RCA and he underwent successful revascularization with LEIDY x1. He has noted worsening chest pain symptoms recently. They radiate to the arms and the jaw. Plan is to perform left heart cath with possible percutaneous coronary intervention. ROS CONSTITUTIONAL: No fever chills weight loss or gain or night sweats. [] HEENT: Normocephalic, atraumatic.[] RESPIRATORY: No cough, sputum, hemoptysis or wheezing.[] CARDIOVASCULAR: Chest pain GI: no nausea vomiting diarrhea. [] DIRECTORY ASSISTANCE OPERATOR: No numbness, tingling, weakness or loss of function in any part of the body. [] MUSCULOSKELETAL: No knee or joint pain or rashes. [] Medications/Allergies* Home Medications Medication Instructions Recorded Confirmed Type gabapentin 300 mg capsule 300 mg PO QID 11/11/19 10/30/21 History omeprazole 40 mg capsule,delayed 40 mg PO DAILY 08/16/21 10/30/21 History release Allergies/Adverse Reactions Allergy/AdvReac Type Severity Reaction Status Date / Time No Known Allergies Allergy Verified 08/27/21 09:06 Pertinent History/Comorbid Conditions* Medical History (Updated 10/30/21 @ 00:01 by ) Atherosclerosis of coronary artery COPD (chronic obstructive pulmonary disease) COPD (chronic obstructive pulmonary disease) History of squamous cell carcinoma Peripheral vascular disease Peripheral vascular disease of extremity STEMI (ST elevation myocardial infarction) Tobacco abuse Surgical History (Updated 03/15/20 @ 14:53 by Britt Powell DO) History of appendectomy History of back surgery History of cholecystectomy History of testicular surgery 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 Status post femoral-popliteal bypass surgery Family History (Updated 11/11/19 @ 12:08 by Annia Mondragon LPN) Denies family history of CAD (coronary artery disease) Cancer Social History Alcohol intake: former Household members: spouse Marital status: service: Yes branch: [employer] Pertinent Exam Findings alert, oriented x 3, clear to auscultation bilaterally and regular rate & rhythm Conscious Sedation Assessment PATIENT ASSESSED PRIOR TO SEDATION, WITH NO CHANGE NOTED: Yes AIRWAY EVAL/ANESTHESIA PLAN: normal airway, ASA III, Monitored Anesthesia, Local Anesthesia, Risks, benefits & alternatives of sedation and/or procedure discussed and Patient agrees to continue as planned Recommendations Surgery/Procedure today (Left heart cath with possible percutaneous coronary intervention) Coding Level of Care Code Acute It Network Architect for Merlyn Hernandez
--- NOTE | 2021-10-31 09:00 | PC.NURSE ---
Received patient from outside laborer. Pt alert and oriented, breathing even and non-labored on room air. TR band containing 16ml to right wrist. No hematoma or bleeding noted. Pt educated on right arm restrictions and verbalized understanding. No complaints of pain at this time. Pt placed on bedside school bus monitor.
--- NOTE | 2021-10-31 10:05 | PC.NURSE ---
2ml air removed from right radial TR band. No signs of bleeding/hematoma. Radial pulse palpable. Will continue to monitor.
--- NOTE | 2021-10-31 10:17 | PC.NURSE ---
2ml air removed from right radial TR band. Site asymptomatic. Pulses palpable. Will continue to monitor.
--- NOTE | 2021-10-31 10:30 | PC.NURSE ---
3 ml air removed from right radial TR band. Site began to bleed minimal amount under tr band. 2ml air placed back into band and bleeding now stopped. No signs of hematoma. Will continue to monitor.
[2021-10-31] MEDS: clopidogrel 75 mg Tablet PO (10:38)
[2021-10-31] MEDS: aspirin 81 mg Chew Tablet PO (10:38)
--- NOTE | 2021-10-31 11:12 | PC.NURSE ---
2ml air removed from right radial TR band. Site asymptomatic. Will continue to monitor.
--- NOTE | 2021-10-31 11:25 | PC.NURSE ---
3 ml air removed from right radial TR band. Site asymptomatic. Will continue to monitor.
--- NOTE | 2021-10-31 11:35 | PC.NURSE ---
3ml air removed from right radial TR band. Site asymptomatic. Will continue to monitor.
--- NOTE | 2021-10-31 11:45 | PC.NURSE ---
3ml air removed from right radial TR band. Site asymptomatic. TR band deflated and removed. Area cleaned and applied bandaid.
== END 2021-10-31 13:08 | disposition home or self-care (01) ==
PROVIDERS: PCP Family Medicine; Visit Provider Internal Medicine
DX: I65.21 Occlusion and stenosis of right carotid artery (principal); I10 Essential (primary) hypertension; I73.9 Peripheral vascular disease, unspecified; J44.9 Chronic obstructive pulmonary disease, unspecified; I25.2 Old myocardial infarction; E78.5 Hyperlipidemia, unspecified
CPT/HCPCS: 36415; 93454; 93571; C1769; C1887; C1894; J1644; J2250; J3010; J7030; Q0163; Q9967

== ENCOUNTER → 2021-11-07 11:00 | Outpatient (BNVA) | payer MEDICARE, MEDICAID, SELFPAY | PROVIDERS: PCP Family Medicine; Visit Provider Nurse Practitioner Family | DX: I25.119 Atherosclerotic heart disease of native coronary artery with unspecified angina pectoris (principal); Z09 Encounter for follow-up examination after completed treatment for conditions other than malignant neoplasm; F17.200 Nicotine dependence, unspecified, uncomplicated | CPT/HCPCS: 80048; 83880 ==

== ENCOUNTER 2021-11-26 14:44 | Outpatient (CLI) | payer MEDICARE, MEDICAID, SELFPAY ==
--- NOTE | 2021-11-26 15:09 | ECG_ITS ---
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 Measurements Intervals [place] Rate: 84 P: 78 RI: 174 QRS: 72 QRSD: 87 T: -14 QT: 370 QTc: 439 Interpretive Statements SINUS RHYTHM NONSPECIFIC T-WAVE ABNORMALITY Compared to ECG 08/15/2021 16:20:08 T-wave abnormality now present Sinus bradycardia no longer present ST (T wave) deviation no longer present Myocardial infarct finding no longer present Prolonged QT interval no longer present Electronically Signed On 11-26-2021 17:25:08 ORGANIC SECTION TECHNICAL LEAD by Kevin Fernández M.D. [email or web address]
== END 2021-11-26 14:45 | disposition home or self-care (01) ==
LOC: RT 14:50
PROVIDERS: PCP Family Medicine; Visit Provider Specialist
DX: J38.2 Nodules of vocal cords (principal)
CPT/HCPCS: 93005

== ENCOUNTER → 2021-12-11 13:34 | Outpatient (BNVA) | payer MEDICARE, MEDICAID, SELFPAY | PROVIDERS: PCP Family Medicine; Visit Provider Internal Medicine | DX: Z09 Encounter for follow-up examination after completed treatment for conditions other than malignant neoplasm (principal); J44.9 Chronic obstructive pulmonary disease, unspecified; I25.10 Atherosclerotic heart disease of native coronary artery without angina pectoris; F17.210 Nicotine dependence, cigarettes, uncomplicated | CPT/HCPCS: 99214 ==

== ENCOUNTER → 2022-06-11 14:51 | Outpatient (BNVA) | payer MEDICARE, MEDICAID, SELFPAY | PROVIDERS: PCP Family Medicine; Visit Provider Internal Medicine | DX: I25.10 Atherosclerotic heart disease of native coronary artery without angina pectoris (principal); J44.9 Chronic obstructive pulmonary disease, unspecified; F17.210 Nicotine dependence, cigarettes, uncomplicated | CPT/HCPCS: 99214 ==

== ENCOUNTER → 2023-02-07 10:43 | Outpatient (BNVA) | payer MEDICARE, MEDICAID, SELFPAY | PROVIDERS: PCP Family Medicine; Visit Provider Internal Medicine | DX: I25.10 Atherosclerotic heart disease of native coronary artery without angina pectoris (principal); J44.9 Chronic obstructive pulmonary disease, unspecified; R07.9 Chest pain, unspecified; R06.09 Other forms of dyspnea; Z72.0 Tobacco use | CPT/HCPCS: 99214 ==

== ENCOUNTER 2023-02-25 10:24 | Outpatient (CLI) | payer MEDICARE, MEDICAID, SELFPAY ==
[2023-02-25 10:48] VITALS: PULSE 62; RESP 18; O2SAT 98
[2023-02-25] MEDS: albuterol 2.5 mg/3 mL Neb INHALATION (10:48)
[2023-02-25 10:53] VITALS: PULSE 63
== END 2023-02-25 10:25 | disposition home or self-care (01) ==
LOC: RT 10:27
PROVIDERS: PCP Family Medicine; Visit Provider Internal Medicine
DX: R06.02 Shortness of breath (principal); F17.210 Nicotine dependence, cigarettes, uncomplicated; R94.2 Abnormal results of pulmonary function studies
CPT/HCPCS: 94060; 94726; 94729; J7613

== ENCOUNTER 2023-02-26 12:00 | Outpatient (CLI) | payer MEDICARE, MEDICAID, SELFPAY ==
--- NOTE | 2023-02-26 12:00 | USCV_ITS ---
Becki Jewel Age: 67 Gender: M : 1955 Exam Date: 02/26/2023 12:21 Ordering Phys: Keenan Simons M.D ([email or web address]) Technologist: REBECCA Exam Location: [facility] [place] Indication: SHORTNESS OF BREATH AND CHEST PAIN BP: 118 / 60 HR: 63 Rhythm: Sinus Technical Quality: Adequate MEASUREMENTS (Male / Female) Normal Values 2D ECHO LVOT Diameter 2.0 cm LV Ejection Fraction MOD 2C 63.0 % LV Ejection Fraction 2C AL 64.4 % LA Diameter 2.3 cm LA Width 3.6 cm LA Height 4.2 cm RA Width 3.6 cm RA Height 3.9 cm Aorta at Sinotubular Diameter 3.0 cm IVC Diameter 1.7 cm M-MODE Aortic Annulus Diameter 3.2 cm LA Ao Ratio MM 0.6 MV E Point Septal Separation 1.3 cm DOPPLER AV Peak Velocity 111.0 cm/s LVOT Peak Velocity 92.0 cm/s AV Area Cont Eq vti 2.8 cm squared AV Area Cont Eq pk 2.7 cm squared MV Peak Velocity 89.0 cm/s MV Area PHT 3.9 cm squared Mitral E to A Ratio 0.7 MV E' Velocity 30.5 cm/s Mitral E to MV E' Ratio 4.4 Mitral E to LV E' Lateral Ratio 4.5 Mitral E to LV E' Septal Ratio 4.4 TR Peak Velocity 182.0 cm/s TR Peak Gradient 13.2 mmHg TR Mean Velocity 133.1 cm/s TR Mean Gradient 8.1 mmHg TR Velocity Time Integral 48.8 cm TV Peak E Velocity 44.0 cm/s Right Atrial Pressure 3.0 mmHg Pulmonary Artery Systolic Pressu 16.2 mmHg PV Peak Velocity 92.0 cm/s RV Acceleration Time 0.1 s RV Ejection Time 0.3 s RV AcT/ET 0.5 FINDINGS Left Ventricle Left ventricle is normal in size. LV systolic function is normal with EF of 50-55%. No regional wall motion abnormalities are seen. Grade 1 diastolic dysfunction. Right Ventricle Normal in size. Right Atrium Normal in size. Left Atrium Normal in size. Mitral Valve Structurally normal mitral valve. Trace mitral regurgitation. Aortic Valve Structurally normal aortic valve. Mild to moderate aortic regurgitation. Tricuspid Valve Mild tricuspid regurgitation. Pulmonary artery systolic pressure is normal. Pulmonic Valve Not well-visualized Pericardium Normal Aorta Normal in size IVC Appears to be normal CONCLUSIONS LV systolic function is normal with EF of 50-55% Mild tricuspid regurgitation Mild mitral regurgitation Mild to moderate aortic regurgitation Compared to prior echocardiogram from 2021, LV systolic function has improved slightly and is normal now. Keenan Simons MD (Electronically Signed) Final Date: 01 March 2023 12:07 S
== END 2023-02-26 12:01 | disposition home or self-care (01) ==
LOC: RAD 12:05
PROVIDERS: PCP Family Medicine; Visit Provider Internal Medicine
DX: R06.02 Shortness of breath (principal); R07.9 Chest pain, unspecified; I08.3 Combined rheumatic disorders of mitral, aortic and tricuspid valves
CPT/HCPCS: 93306

== ENCOUNTER 2023-03-11 07:55 | Outpatient (CLI) | payer MEDICARE, MEDICAID, SELFPAY ==
--- NOTE | 2023-03-11 | ECG_ITS ---
[facility] Test Date: 2023-03-11 Pat Name: Jewel Connell Department: Room: Gender: Male Medical Practice Manager: : 1955 Requested By: Keenan Simons Order Number: [id number] Bridger MD: Keenan Simons M.D. Interpretive Statements NAME OF STUDY: LEXISCAN SESTAMIBI STRESS TEST INDICATION: [Chest Pain] Procedure: At the baseline, the blood pressure was 142/78 mmHg with a heart rate of 55 bpm. The electrocardiogram showed sinus bradycardia, normal axis with normal ST and T's. The Lexiscan was infused over a period of 20 seconds. A total of 0.4 mg of Lexiscan was infused. The stress phase was continued for a total of 5 minutes. Heart rate was at the end of stress phase was 68bpm. Blood pressure is not recorded. The EKG at the peak infusion revealed normal sinus rhythm with no significant ST-T wave changes. Sestamibi was injected 20 seconds after the Lexiscan infusion. Blood pressure was not recorded at the end of recovery phase. The heart rate was 58 bpm. Conclusion: 1. Normal EKG response to Lexiscan infusion 2. No Lexiscan induced chest pain or cardiac arrhythmia. 3. Normal blood pressure and heart rate response. 4. Sestamibi/sestamibi perfusion scan pending; see separate report. Electronically Signed On 03-21-2023 14:54:30 CDT by Keenan Simons M.D. [id number]
[2023-03-11 08:38] VITALS: BMI 25.6
--- NOTE | 2023-03-11 08:39 | NMCV_ITS ---
NM abad perf SPECT r/s* [id number] Jewel Connell Age: 67 Gender: M : 1955 Exam Date: 03/11/2023 08:39 Ordering Phys: Keenan Simons M.D ([email or web address]) Technologist: NAHED Carreno Exam [facility]: [facility] Indications: CHEST PAIN STRESS TEST Please see separate stress test report in [facility] for full findings IMAGE PROTOCOL Rest/Stress 1 Lexiscan Day Radiopharmaceutical Dose (mCi) Administration Site Administered by Rest: Tc-99m 10.7 IV Riccardo Barlow, EXCHANGE ARCHITECT Sestamibi Stress:Tc-99m 31.5 IV Riccardo Barlow, EXCHANGE ARCHITECT Sestamibi Rest: 11-Mar-2023 60 Discovery 630 Stress: 11-Mar-2023 30 Discovery 630 0.4mg Lexiscan. Images obtained in supine and prone position. SPECT RESULTS Technical Quality: Excellent Raw Data Analysis: Normal Image Corrections: No attenuation or motion correction applied Summed Stress Score: 14 Summed Rest Score: 2 Summed Difference Score: 13 PERFUSION FINDINGS There is a large in size, partially reversible perfusion defect noted in inferior and inferolateral harper. This is consistent with large sized areas of prior infarct with barbie-infarct ischemia in RCA and left circumflex artery territories FUNCTIONAL RESULTS (calculated via Gated SPECT) Stress Image LV EF (%): 48 Stress EDV (mL):121 TID: 0.91 Stress ESV (mL):63 FUNCTIONAL FINDINGS: LV systolic function is mildly reduced with EF of 48% IMPRESSIONS 1. Abnormal myocardial perfusion imaging with large area of prior infarct in the RCA and left circumflex artery territories with barbie-infarct ischemia. 2. LV systolic function is mildly reduced. Keenan Simons MD (Electronically Signed) Final Date: 17 March 2023 17:36 S
[2023-03-11] MEDS: regadenoson 0.4 Mg/5 ml Syringe IVP (10:41)
[2023-03-11 11:01] VITALS: BP 152/78; PULSE 72
== END 2023-03-11 07:56 | disposition home or self-care (01) ==
LOC: CDL 07:56
PROVIDERS: PCP Family Medicine; Visit Provider Internal Medicine
DX: R07.9 Chest pain, unspecified (principal); R94.39 Abnormal result of other cardiovascular function study
CPT/HCPCS: 36415; 78452; 93017; 96374; A9500; J2785

== ENCOUNTER → 2023-04-23 10:47 | Outpatient (BNVA) | payer MEDICARE, MEDICAID, SELFPAY | PROVIDERS: PCP Family Medicine; Visit Provider Internal Medicine Pulmonary Disease | DX: J44.9 Chronic obstructive pulmonary disease, unspecified (principal); I25.10 Atherosclerotic heart disease of native coronary artery without angina pectoris; F17.210 Nicotine dependence, cigarettes, uncomplicated | CPT/HCPCS: 99204 ==

== ENCOUNTER → 2023-09-01 12:39 | Outpatient (BNVA) | payer MEDICARE, MEDICAID, SELFPAY | PROVIDERS: PCP Family Medicine; Visit Provider Internal Medicine Cardiovascular Disease | DX: J44.9 Chronic obstructive pulmonary disease, unspecified (principal); I25.119 Atherosclerotic heart disease of native coronary artery with unspecified angina pectoris; Z72.0 Tobacco use; Z85.89 Personal history of malignant neoplasm of other organs and systems; Z95.828 Presence of other vascular implants and grafts; I70.209 Unspecified atherosclerosis of native arteries of extremities, unspecified extremity | CPT/HCPCS: 99214 ==

== ENCOUNTER → 2023-11-06 14:43 | Outpatient (BNVA) | payer MEDICARE, MEDICAID, SELFPAY | PROVIDERS: PCP Family Medicine; Visit Provider Internal Medicine Pulmonary Disease | DX: J44.9 Chronic obstructive pulmonary disease, unspecified (principal); I25.10 Atherosclerotic heart disease of native coronary artery without angina pectoris; Z72.0 Tobacco use; Z12.2 Encounter for screening for malignant neoplasm of respiratory organs | CPT/HCPCS: 99214 ==

== ENCOUNTER → 2023-11-26 12:58 | Outpatient (BNVA) | payer MEDICARE, MEDICAID, SELFPAY | PROVIDERS: PCP Family Medicine; Visit Provider Internal Medicine | DX: I25.10 Atherosclerotic heart disease of native coronary artery without angina pectoris (principal); J44.9 Chronic obstructive pulmonary disease, unspecified; Z72.0 Tobacco use | CPT/HCPCS: 99214 ==

== ENCOUNTER → 2023-12-09 09:35 | Outpatient (BNVA) | payer MEDICARE, MEDICAID, SELFPAY | PROVIDERS: PCP Family Medicine; Visit Provider Otolaryngology | DX: R49.0 Dysphonia (principal); J38.3 Other diseases of vocal cords; K21.9 Gastro-esophageal reflux disease without esophagitis; F17.210 Nicotine dependence, cigarettes, uncomplicated | CPT/HCPCS: 31575; 99205 ==

== ENCOUNTER 2023-12-11 13:40 | Outpatient (CLI) | payer MEDICARE, MEDICAID, SELFPAY ==
--- NOTE | 2023-12-11 14:00 | CT_ITS ---
WS: [id number] LDCT LUNG CANCER SCREENING HISTORY: Cancer Screen TECHNIQUE: Axial imaging performed from the apices to 1 cm below the costophrenic angles. Coronal and sagittal reformats are submitted with axial MIP series. All CT scans at [facility] use at least one of these dose optimization techniques: automated exposure control; mA and/or kV adjustment per patient size (includes targeted exams where dose is matched to clinical indication); or iterativ e reconstruction. DLP: 76.79 mGy.cm DIvol: Mean CTDIvol: 1.40 (mGy) COMPARISON: None available. Diagnostic quality: Satisfactory Lungs: Mild pulmonary hyperexpansion. Centrilobular and paraseptal emphysema. No mass or nodule. Heart: Normal size heart with no pericardial effusion.. Other findings: Mild atherosclerosis aorta. No mediastinal or hilar adenopathy. IMPRESSION: CT/CT lung screening [id number] LUNG-RADS: 1-Negative FOLLOW UP: 12 Month: Continue annual screening with LDCT OTHER FINDINGS (S MODIFIER): None.
== END 2023-12-11 13:41 | disposition home or self-care (01) ==
LOC: RAD 13:41
PROVIDERS: PCP Family Medicine; Visit Provider Internal Medicine Pulmonary Disease
DX: Z12.2 Encounter for screening for malignant neoplasm of respiratory organs (principal); Z87.891 Personal history of nicotine dependence; J43.2 Centrilobular emphysema
CPT/HCPCS: 71271

== ENCOUNTER 2023-12-24 10:16 | Day surgery (SDC) | payer MEDICARE, MEDICAID, SELFPAY ==
[2023-12-24] VITALS (10 sets, daily range): BP systolic 125–177; BP diastolic 59–87; PULSE 50–73; RESP 13–25; TEMP 36.3–36.6; O2SAT 92–100; BMI 27.1
--- NOTE | 2023-12-24 10:42 | P.ANESASSM_ITS ---
Pre-Anesthetic Assessment Height/Weight: Height 1.8 m Weight 88.451 kg Temp Pulse Resp BP Pulse Ox O2 Del Method 97.7 F 60 18 125/76 100 Room Air 12/24/23 10:35 12/24/23 10:35 12/24/23 10:35 12/24/23 10:35 12/24/23 10:35 12/24/23 10:38 Preop Diagnosis: Chronic hoarseness with vocal cord lesions Operation Date: 12/24/23 12:00 Proposed Procedures p Direct Laryngoscopy/Direct Larungoscopy with Biopsy(Not Applicable) - Roland Montanez MD Familial anesthetic complications: None Was Beta Faisal taken within 24 hours: N/A Was Clonidine taken within 24 hours: N/A Last intake: Intake Last Liquid Date 12/23/23 Last Liquid Time 22:00 Last Solid Date 12/23/23 Last Solid Time 18:30 Social Tobacco and No alcohol Exam alert, oriented x 3, clear to auscultation bilaterally and regular rate & rhythm Airway Mallampati: Class II Dentition: other (multiple missing) Pulmonary Chronic Obstructive Pulmonary Disease CV/HEM Stable Angina (atypical), Coronary Artery Disease ( Moderate cad w/ stent) and Myocardial Infarction EF 45% Mod AVR Mild AVR Anesthetic Plan ASA status: 4 Anesthesia: General Risk of > 500 ml blood loss (7ml/kg in children): No Medications/Allergies Home Medications Medication Instructions Recorded Confirmed Last Taken Type gabapentin 300 mg capsule 300 mg PO QID 11/11/19 12/23/23 12/24/23 07:15 History clopidogrel 75 mg tablet 75 mg PO DAILY #90 tabs 08/17/21 12/23/23 12/23/23 Rx nitroglycerin 0.4 mg sublingual 0.4 mg sublingual Q5M PRN Chest 08/17/21 12/23/23 Unknown Rx tablet Pain #30 tabs pantoprazole 40 mg tablet,delayed 40 mg PO DAILY 06/11/22 12/23/23 12/23/23 History release rosuvastatin 40 mg tablet 40 mg PO DAILY 02/07/23 12/23/23 12/23/23 History albuterol sulfate 90 mcg/actuation 1 inh inhalation QID PRN shortness 10/07/23 12/23/23 Unknown Rx aerosol inhaler (Ventolin HFA) of breath or wheezing #8.5 grams formoterol fumarate 20 mcg/2 mL 2 ml inhalation BID #120 mL 11/06/23 12/23/23 12/24/23 07:15 Rx solution for nebulization (Perforomist) revefenacin 175 mcg/3 mL solution 175 mcg (3 mL) inhalation DAILY 11/06/23 12/23/23 12/23/23 Rx for nebulization (Yupelri) #90 mL budesonide 0.5 mg/2 mL suspension 0.5 mg inhalation BID 12/24/23 12/23/23 12/24/23 07:15 History for nebulization (Pulmicort) Allergies Allergy/AdvReac Type Severity Reaction Status Date / Time No Known Allergies Allergy Verified 12/23/23 10:45 [facility] Anesthesia Medical History Leg pain Detached retina Atherosclerosis of coronary artery STEMI (ST elevation myocardial infarction) Peripheral vascular disease COPD (chronic obstructive pulmonary disease) Tobacco abuse COPD (chronic obstructive pulmonary disease) History of squamous cell carcinoma Peripheral vascular disease of extremity Surgical History History of appendectomy History of cholecystectomy History of back surgery History of testicular surgery 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 Father No problems noted. Denies family history of CAD (coronary artery disease) Cancer Social History Smoking and tobacco/nicotine status: former use of tobacco/nicotine Quit status (tobacco/nicotine): has quit using Year quit tobacco: 08/2023 Former quit date comment: 0.5 ppd X 57 years Alcohol intake: former Substance/Drug Use: current Substance/Drug use frequency: few times a week Household members: spouse Marital status: service: Yes branch: [employer] Data Anesthesia Cardiac Studies: Echocardiogram 02/26/23 Echocardiogram Ultrasound 03/16/20 Sestamibi Stress Test (Cardiology) 03/11
[2023-12-24] MEDS: sodium chloride 0.9% 1,000 ML 30 ML IV (10:54)
--- NOTE | 2023-12-24 11:52 | W.PM.OPSUD ---
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 PLANNED PROCEDURE: Operation Date: 12/24/23 12:00 Proposed Procedures p Direct Laryngoscopy/Direct Larungoscopy with Biopsy(Not Applicable) - Roland Montanez MD
[2023-12-24] MEDS: ceFAZolin 2,000 MG in sodium chloride 0.9% (plus) 50 ML 100 MG IV (12:05)
[2023-12-24] MEDS: EPINEPHrine 1 mg/mL INJ XX (12:34)
--- NOTE | 2023-12-24 12:42 | PM.OP ---
Operative Report Date of procedure: December 24, 2023 Pre-op diagnosis: Chronic hoarseness with glottic lesion Post-op diagnosis: Subglottic lesion involving the left subglottic area anterior subglottic area encroaching over to the right subglottic area and involving the anteriormost aspect of the left true vocal cord. Post-op findings: Irregular ulcerative and exophytic lesions involving the left subglottic area as well as anterior subglottic area and encroaching over to the right subglottic area and involving the anteriormost aspect of the left true vocal cord. Procedure done: Direct suspension microscopic laryngoscopy with multiple biopsies Implants: No implants Specimens removed/disposition: Biopsies of the left subglottic area. Biopsies of anterior subglottic area. Biopsies of right subglottic area and biopsies of left anterior true vocal cord. Pathology: Same Surgeon: Roland Montanez MD Anesthesia: General Estimated blood loss: 10 mL Complications: No complications encountered Findings: On examination in the office with flexible laryngoscopy it appeared as if the patient had an anterior commissure lesion. This is associated with chronic hoarseness. Brief History: 68-year-old male patient has had chronic hoarseness and was noted on flexible laryngoscopy in the office to have what appeared to be an anterior commissure region lesion. It was uncertain whether there was was extending from the immediate subglottic area to the anterior commissure between it versus emanating from the anterior commissure and true vocal cords. Patient being brought to the operating room at this time to undergo suspension microscopic laryngoscopy with biopsy of lesions present. The procedure its risks and complications were explained in detail to the patient. These risks included bleeding and infection and numbness and scarring and swelling and bruising and voice change and need for additional treatment as this is a diagnostic procedure and more serious risks associated with anesthesia. Patient understands that bleeding may be more aggressive because he continued to take his Plavix until yesterday. With these things understood informed consent was granted and witnessed. Procedure: Description of procedure: The patient was placed on the operating table in the supine position. Adequate general endotracheal tube anesthesia was obtained. A timeout was accomplished identifying the patient date of plan procedure allergies fire risk and medications given. With all in agreement the procedure continued. The table was rotated 90 degrees. The head was dropped 15 degrees to the horizontal. His eyes were taped shut and a head drape was applied in usual fashion. A tooth guard was a placed on the upper gingiva. K-Y jelly was applied on the scope and the lips and tooth guard. Then the anterior commissure laryngoscope was inserted and the base of tongue vallecula and epiglottis tip were evaluated and found to be normal. The laryngeal surface of the epiglottis was normal as well. AE folds and arytenoids were normal. Interarytenoid and postcricoid areas were normal. Posterior and lateral hypopharyngeal harper were normal. The true vocal cord on the left side shows an irregular mass anteriorly extending down to the subglottic area that extends inferiorly for about 1 cm to the left cord and the same distance inferiorly at the anterior commissure and around to the right side where it is about 5 mm below the cords. Biopsies were taken of the left subglottic area and anterior subglottic area and right subglottic area as well as left anterior true vocal cord. The area was then suctioned clean and and cottonoid with 1-1000 epinephrine was applied to the biopsy sites. This was left in place for a few minutes. It was removed. No active bleeding was seen. The area was treated with an LTA using local 100 mg. Then excess was suctioned clean. The suspension apparatus was taken down. Again no bleeding was seen. The scope was then removed and suctioning was accomplished as the scope was removed. Then the Yankauer suction was used to suction the oropharynx nasopharynx and posterior hypopharyngeal areas. The tooth guard was removed. The head was returned to the upright position. Head drape and tape were removed. Patient was then suctioned once again with no sign of any active bleeding. The patient was then returned to anesthesia for wake-up and extubation. Patient tolerated the procedure well and had an estimated blood loss of 10 mL and arrived in recovery in stable condition.
[2023-12-24] MEDS: acetaminophen-codeine 300-30mg Tablet 2 TAB PO (13:37)
--- NOTE | 2023-12-24 14:00 | ANE.PACU2 ---
Inpatient post-anesthesia follow up: Airway intact: Yes Vital signs: Temperature 97.4 F Pulse Rate 50 Respiratory Rate 20 Blood Pressure 143/75 Pulse Oximetry 100 Oxygen Delivery Me thod Room Air Oxygen Flow Rate Fraction of Inspir ed Oxygen Hydration adequate: Yes Nausea and vomiting: No Pain level: 1 Mental status: Baseline
== END 2023-12-24 14:02 | disposition home or self-care (01) ==
PROVIDERS: PCP Family Medicine; Visit Provider Otolaryngology
PROC: 0CJS8ZZ Inspection of Larynx, Via Natural or Artificial Opening Endoscopic (ICD-10-PCS; CPT 31536; principal; 2023-12-24 12:00)
DX: C32.0 Malignant neoplasm of glottis (principal); J44.9 Chronic obstructive pulmonary disease, unspecified; I25.10 Atherosclerotic heart disease of native coronary artery without angina pectoris; Z95.5 Presence of coronary angioplasty implant and graft; I25.2 Old myocardial infarction; Z87.891 Personal history of nicotine dependence
CPT/HCPCS: 31536; 88305; J0171; J0690; J1100; J2405; J3010; J3490; J7030

== ENCOUNTER → 2023-12-31 10:20 | Outpatient (BNVA) | payer MEDICARE, MEDICAID, SELFPAY | PROVIDERS: PCP Family Medicine; Visit Provider Otolaryngology | DX: C32.0 Malignant neoplasm of glottis (principal); C32.2 Malignant neoplasm of subglottis; R49.0 Dysphonia; Z48.89 Encounter for other specified surgical aftercare | CPT/HCPCS: 99024; 99212 ==

== ENCOUNTER 2024-01-27 09:39 | Oncology outpatient (recurring) (ONCR) | payer MEDICARE, MEDICAID, SELFPAY ==
--- NOTE | 2024-01-01 14:01 | N.ONRAD NP_ITS ---
Radiation Oncology New Patient Visit Patient: Jewel Connell MR#: [id number] : 1955 Age: 68 Sex: Male Dictated by: Dr. Yessenia Nesbitt Date of Service: 01/01/2024 Referring Physician(s) : Dr. 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 Malignant neoplasm of the larynx Radiotherapy to date: Course: C1, Treatment Site: E [id number], Ref. ID: [id number], Energy: 6E, Dose/Fx (cGy): 250, #Fx: / , Dose Correction (cGy): 0, Total Dose Delivered (cGy): 5,500, Start Date: 04/14/2018, End Date: 05/13/2018, Elapsed Days: 29 C1, Treatment Site: Inguinalnodes, Ref. ID: [id number], Energy: 6X, Dose/Fx (cGy): 200, #Fx: , Dose Correction (cGy): 0, Total Dose Delivered (cGy): 4,600, Start Date: 04/13/2018, End Date: 05/14/2018 Chief Complaint / History of Present Illness: Patient is a 68-year-old gentleman who was treated for scrotal cancer in 2018. He said about 2 years ago he started to notice some mild hoarseness which actually progressed in the last month or so. He sought medical attention and had an in office exam which showed what appeared to be leukoplakia and plaques on his vocal cords. Subsequently had biopsy done of this area as well as the hypopharynx. The biopsies returned as grade 1-2 squamous cell carcinoma extending into the subglottic area. He had a CT of his chest which did not reveal any evidence of abnormalities. 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 He has actually gained weight in the last month or so. He said his throat has been sore since the biopsies were done. Current Medications: albuterol sulfate 90 mcg/actuation (Ventolin HFA) 1 inh inhalation QID PRN, budesonide (Pulmicort) 0.5 mg inhalation BID, clopidogrel 75 mg PO DAILY, formoterol fumarate (Perforomist) 2 mL inhalation BID, gabapentin 300 mg PO QID, nitroglycerin 0.4 mg sublingual Q5M PRN, pantoprazole 40 mg PO DAILY, revefenacin (Yupelri) 175 mcg (3 mL) inhalation DAILY, rosuvastatin 40 mg PO DAILY Allergies: No Known Allergies Medical History: Leg pain, Detached retina, Atherosclerosis of coronary artery, STEMI (ST elevation myocardial infarction), Peripheral vascular disease, COPD (chronic obstructive pulmonary disease), Tobacco abuse, COPD (chronic obstructive pulmonary disease), History of squamous cell carcinoma, Peripheral vascular disease of extremity Surgical History: History of appendectomy, History of cholecystectomy, History of back surgery, History of testicular surgery, 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 Brother is at age 67 having experienced malignant neoplasm. Social History: Smoking and tobacco/nicotine status: former use of tobacco/nicotine, Quit status (tobacco/nicotine): has quit using Year quit tobacco: 08/2023 Former quit date comment: 0.5 ppd X 57 years , Alcohol intake: former, Substance/Drug Use: current Substance/Drug use frequency: few times a week, Household members: spouse, Marital status: , service: Yes branch: [employer] Current Complaints / Review of Systems: . Sore throat since the biopsies Vital Signs: Performed on 01/01/2024 1:19 PM BMI - 27.309 kg/m2 (high), Height - 71 in, Weight - 195.8 lbs, Temperature - 96.9 f, Pulse - 85 /min, Respiration - 18 /min, O2 Sat - 98 %, Pain - 3, Fatigue - 3 and BP - 124/ 73 mm(hg). Physical Exam: General: Patient is in no apparent distress today he is alone today. HEENT: Normocephalic atraumatic. Pupils are equal, sclera clear, extraocular muscles intact. Neck is supple without palpable cervical or supraclavicular adenopathy. Oral cavity reveals poor dentition Lungs: Respiratory rate is regular nonlabored Cardiovascular: Regular rate and rhythm Abdomen: Patient is fairly thin with minimal adipose tissue Extremities: Patient has no significant upper or lower extremity edema Skin: Patient has quite a bit of chronic changes across his arms and forearms as well as across his face Neurological: Alert and orient x 3. Gait within normal limits. Speech is slightly hoarse. Psych: Affect appropriate for current situation Performance Status: 90 Pathology: Primary, c63.2 - malignant neoplasm of scrotum, Diagnosed 03/11/2018 (active) . Lab: Imaging: See HPI Impression: Squamous of carcinoma of the larynx Plan: I reviewed with the patient the various options for early stage larynx cancer. We talked about how the surgical options basically remove the larynx. He was not interested in this option. We talked about the radiation option. He is interested with radiation from his previous treatments. We talked about the number of treatments and the simulation process. We reviewed the risks and side effects both acute and long-term. This point he has a good understanding of the current situation and the treatment option. He is elected to proceed with the radiation. He had no additional questions or concerns. Will proceed with simulation next week and get his treatment started on a Friday so that we can go straight through all 6 weeks of treatment without a treatment break. Signed by: 01/01/2024 1:59:22 PM <<Signature on File>> Time spent with patient:45 CPT Code: CPT Code:
--- NOTE | 2024-01-20 11:17 | ONCRAD TMN_ITS ---
Radiation Oncology Weekly Treatment Management Patient: Jewel Connell MR#: [id number] : 1955> Attending Physician: Dr. Yessenia Nesbitt Date of Service: 01/20/2024 Fractions: Referring Physician(s) : Roland Montanez Diagnosis: C32.9 - Malignant neoplasm of larynx, unspecified, Diagnosed 01/01/2024 (Active) C63.2 - Malignant neoplasm of scrotum, Diagnosed 03/11/2018 (Active) Radiotherapy to date: Course: larynx 2023, Treatment Site: Larynx 2023, Ref. ID: [id number], Energy: 6X, Dose/Fx (cGy): 225, #Fx: , Dose Correction (cGy): 0, Total Dose Delivered (cGy): 225, Start Date: 01/20/2024, Elapsed Days: 0 Reason for visit: The patient is being seen today as part of their regularly scheduled weekly on treatment visits to assess for acute toxicities from radiotherapy. Review of Systems: Patient is still quite sore when he swallows Vital Signs: Performed on 01/20/2024 10:45 AM BMI - 27.42 kg/m2 (high), Height - 71 in, Weight - 196.6 lbs, Temperature - 97.2 f, Pulse - 65 /min, Respiration - 16 /min, O2 Sat - 98 %, Pain - 4, Fatigue - 4 and BP - 129/ 72 mm(hg). Physical Exam: On exam his oral cavity reveals thrush across his tongue Imaging: Radiation therapy imaging related to accurate target localization (i.e. KV, MV and CBCT) was reviewed. Appropriate changes, if any, were made to ensure treatment accuracy. Plan: Will continue with his treatments. I reminded him that with sometimes with the biopsy the area can be tender for quite some time. In the meantime because of the thrush which she could also have in the larynx area we will start him on Diflucan and keep him on this for 2 weeks. Signed by: Dr. Yessenia Nesbitt 01/20/2024 11:16:12 AM
== END 2024-01-27 23:59 | disposition home or self-care (01) ==
PROVIDERS: PCP Family Medicine; Visit Provider Radiology Radiation Oncology
DX: Z51.0 Encounter for antineoplastic radiation therapy (principal); C32.8 Malignant neoplasm of overlapping sites of larynx
CPT/HCPCS: 77300; 77301; 77334; 77338; 77386; 99024; 99205

== ENCOUNTER 2024-02-19 09:22 | Oncology outpatient (recurring) (ONCR) | payer MEDICARE, MEDICAID, SELFPAY ==
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
--- NOTE | 2024-02-04 11:16 | ONCRAD TMN_ITS ---
Radiation Oncology Weekly Treatment Management Patient: Jewel Connell MR#: [id number] : 1955 Attending Physician: Dwight Schuster Date of Service: 02/04/2024 Referring Physician(s) : Roland Montanez Diagnosis: C32.9 - Malignant neoplasm of larynx, unspecified, Diagnosed 01/01/2024 (Active) C63.2 - Malignant neoplasm of scrotum, Diagnosed 03/11/2018 (Active) Radiotherapy to date: Course: larynx 2023, Treatment Site: Larynx 2023, Ref. ID: [id number], Energy: 6X, Dose/Fx (cGy): 225, #Fx: , Dose Correction (cGy): 0, Total Dose Delivered (cGy): 2,700, Start Date: 01/20/2024, Elapsed Days: 15 Reason for visit: The patient is being seen today as part of their regularly scheduled weekly on treatment visits to assess for acute toxicities from radiotherapy. Review of Systems: Now severe swallowing pain. 10/10 level. Everything hurts going down. Able to swallow some water with pain. Salt and soda gargles hurt too. Not on any pain meds. Not smoking. Vital Signs: Performed on 02/04/2024 9:41 AM BMI - 25.44 kg/m2 (high), Height - 71 in, Weight - 182.4 lbs, Temperature - 97.3 f, Pulse - 71 /min, Respiration - 16 /min, O2 Sat - 99 %, Pain - 10, Fatigue - 8 and BP - 130/ 70 mm(hg). Physical Exam: Imaging: Radiation therapy imaging related to accurate target localization (i.e. KV, MV and CBCT) was reviewed. Appropriate changes, if any, were made to ensure treatment accuracy. Plan: Fair to poor tolerance of treatment . Will hold treatment Thurs and Fri 02/04 and 02/06/2024. Hold salt and soda gargles. Add triple mix and HC/APAP elixir. Soft diet as tolerated. See again to resume treatment 02/09/2024. Signed by: Dwight Schuster 02/04/2024 11:15:08 AM
[2024-02-16] MEDS: sodium chloride 0.9% 1,000 ML 999 ML IV (10:05)
--- NOTE | 2024-02-16 10:09 | ONCRAD TMN_ITS ---
Radiation Oncology Weekly Treatment Management Patient: Jewel Connell MR#: [id number] : 1955 Attending Physician: Dr. Yessenia Nesbitt Date of Service: 02/16/2024 Fractions: 17 out of 29 Referring Physician(s) : Roland Montanez Diagnosis: C32.9 - Malignant neoplasm of larynx, unspecified, Diagnosed 01/01/2024 (Active) C63.2 - Malignant neoplasm of scrotum, Diagnosed 03/11/2018 (Active) Radiotherapy to date: Course: larynx 2023, Treatment Site: Larynx 2023, Ref. ID: [id number], Energy: 6X, Dose/Fx (cGy): 225, #Fx: , Dose Correction (cGy): 0, Total Dose Delivered (cGy): 3,825, Start Date: 01/20/2024, Elapsed Days: 24 Reason for visit: The patient is being seen today as part of their regularly scheduled weekly on treatment visits to assess for acute toxicities from radiotherapy. Review of Systems: Patient had a rough week last week. He began to develop an increasing sore throat. He was giving the Magic mix but did not like the way it made his throat feel. He said it seemed like it is eased up after he took the Magic mix. He had been using his liquid hydrocodone but apparently his grandson broke the bottle. Today he continues to have the sore throat but he is also had nausea and had emesis once this weekend. Vital Signs: Performed on 02/16/2024 9:52 AM BMI - 24.826 kg/m2 (high), Height - 71 in, Weight - 178 lbs, Temperature - 97.3 f, Pulse - 77 /min, Respiration - 18 /min, O2 Sat - 100 %, Pain - 7, Fatigue - 10 and BP - 113/ 63 mm(hg)(/low). Physical Exam: On examination he still has quite a bit of thrush on his tongue. His skin has minimal hyperpigmentation. Imaging: Radiation therapy imaging related to accurate target localization (i.e. KV, MV and CBCT) was reviewed. Appropriate changes, if any, were made to ensure treatment accuracy. Plan: I reviewed with him at this point that is very common to have a sore throat in the middle of treatment. This usually resolves over the next few days. In the meantime I have asked him to refill his thrush medication. I will also send Gabriela to his pharmacy for the nausea. I have asked him to eat nothing but soft foods which would either be things he could put in the hair blender or things like pudding or ice cream. He has not eaten very well for the last week or so and at this point I recommended to him that we give him a liter of fluid so that we can rehydrate him which might make a tremendous difference in terms of the soreness he is experiencing. I have also asked him to take 2 Tylenol every 6 hours as well as a tablespoon of honey 3-4 times a day. At this point he is in agreement and he will go ahead and get his fluids today and will continue his treatments tomorrow. Signed by: Dr. Yessenia Nesbitt 02/16/2024 10:08:32 AM
[2024-02-16 11:12] VITALS: BP 133/74; PULSE 60; TEMP 36.4; O2SAT 98
== END 2024-02-19 23:59 | disposition home or self-care (01) ==
PROVIDERS: PCP Family Medicine; Visit Provider Radiology Radiation Oncology
DX: C32.0 Malignant neoplasm of glottis (principal); Z51.0 Encounter for antineoplastic radiation therapy
CPT/HCPCS: 31575; 77336; 77386; 96360; 99024; 99213; J7030

== ENCOUNTER 2024-02-27 09:33 | Oncology outpatient (recurring) (ONCR) | payer MEDICARE, MEDICAID, SELFPAY ==
--- NOTE | 2024-02-24 10:10 | ONCRAD TMN_ITS ---
Radiation Oncology Weekly Treatment Management Patient: Jewel Connell MR#: [id number] : 1955 Attending Physician: Dr. Yessenia Nesbitt Date of Service: 02/24/2024 Fractions: 22 out of 29 Referring Physician(s) : Roland Montanez Diagnosis: C32.9 - Malignant neoplasm of larynx, unspecified, Diagnosed 01/01/2024 (Active) C63.2 - Malignant neoplasm of scrotum, Diagnosed 03/11/2018 (Active) Radiotherapy to date: Course: larynx 2023, Treatment Site: Larynx 2023, Ref. ID: [id number], Energy: 6X, Dose/Fx (cGy): 225, #Fx: , Dose Correction (cGy): 0, Total Dose Delivered (cGy): 4,950, Start Date: 01/20/2024, Elapsed Days: 35 Reason for visit: The patient is being seen today as part of their regularly scheduled weekly on treatment visits to assess for acute toxicities from radiotherapy. Review of Systems: Says his throat is actually little better this week. His voice quality has improved a little he is swallowing has improved. Vital Signs: Performed on 02/24/2024 9:57 AM BMI - 25.217 kg/m2 (high), Height - 71 in, Weight - 180.8 lbs, Temperature - 96.9 f, Pulse - 61 /min, Respiration - 16 /min, O2 Sat - 97 %, Pain - 4, Fatigue - 8 and BP - 116/ 67 mm(hg). Physical Exam: On examination the skin in the treatment field is hyperpigmented and dry and he has several areas that have crusted where they have gotten dried out enough to bleed Imaging: Radiation therapy imaging related to accurate target localization (i.e. KV, MV and CBCT) was reviewed. Appropriate changes, if any, were made to ensure treatment accuracy. Plan: I have asked him at this time to use triple antibiotic ointment on the skin area after his treatment daily. We talked about how he will feel over the next few weeks before he returns for his 1 month follow-up. He was in good spirits today. Signed by: Dr. Yessenia Nesbitt 02/24/2024 10:08:41 AM
== END 2024-02-27 23:59 | disposition home or self-care (01) ==
PROVIDERS: PCP Family Medicine; Visit Provider Radiology Radiation Oncology
DX: C32.0 Malignant neoplasm of glottis (principal); Z51.0 Encounter for antineoplastic radiation therapy
CPT/HCPCS: 77386; 99024

== ENCOUNTER → 2024-03-01 08:37 | Outpatient (BNVA) | payer MEDICARE, MEDICAID, SELFPAY | PROVIDERS: PCP Family Medicine; Visit Provider Otolaryngology | DX: C32.0 Malignant neoplasm of glottis (principal); R49.0 Dysphonia | CPT/HCPCS: 31575; 99213 ==

== ENCOUNTER 2024-03-04 09:23 | Oncology outpatient (recurring) (ONCR) | payer MEDICARE, MEDICAID, SELFPAY ==
--- NOTE | 2024-03-02 10:01 | ONCRAD TMN_ITS ---
Radiation Oncology Weekly Treatment Management Patient: Jewel Connell MR#: [id number] : 1955 Attending Physician: Dr. Yessenia Nesbitt Date of Service: 03/02/2024 Fractions: 27 out of 29 Referring Physician(s) : Roland Montanez M.D. Diagnosis: C32.9 - Malignant neoplasm of larynx, unspecified, Diagnosed 01/01/2024 (Active) C63.2 - Malignant neoplasm of scrotum, Diagnosed 03/11/2018 (Active) Radiotherapy to date: Course: larynx 2023, Treatment Site: Larynx 2023, Ref. ID: [id number], Energy: 6X, Dose/Fx (cGy): 225, #Fx: , Dose Correction (cGy): 0, Total Dose Delivered (cGy): 6,075, Start Date: 01/20/2024, Elapsed Days: 42 Reason for visit: The patient is being seen today as part of their regularly scheduled weekly on treatment visits to assess for acute toxicities from radiotherapy. Review of Systems: Patient is in good spirits. He has pretty much lost his voice and that it is now breathy. His skin is actually healed from last week Vital Signs: Performed on 03/02/2024 9:21 AM BMI - 22.846 kg/m2, Height - 71 in, Weight - 163.8 lbs, Temperature - 96.7 f, Pulse - 66 /min, Respiration - 18 /min, O2 Sat - 99 %, Pain - 3, Fatigue - 8 and BP - 104/ 63 mm(hg)(/low). Physical Exam: On exam his skin is erythematous but there are no areas of dryness or peeling Imaging: Radiation therapy imaging related to accurate target localization (i.e. KV, MV and CBCT) was reviewed. Appropriate changes, if any, were made to ensure treatment accuracy. Plan: Will continue with his treatments as planned. He will be finished in 2 days. Will then see him back in a month for his first checkup. Signed by: Dr. Yessenia Nesbitt 03/02/2024 10:00:38 AM
--- NOTE | 2024-03-04 10:48 | N.ONRD TS_ITS ---
Radiation Oncology Treatment Summary Patient: Jewel Connell MR#: [id number] : 1955 Age: 68 Sex: Male Dictated by: Dr. Yessenia Nesbitt Date of Service: 03/04/2024 Referring Physician(s) : Roland Montanez M.D. 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 ID: E beam [id number], Energy: 6E, Dose/Fx (cGy): 250, #Fx: , Dose Correction (cGy): 0, Total Dose Delivered (cGy): 5,500, Start Date: 04/14/2018, End Date: 05/13/2018, Elapsed Days: 29 Course: C1, Treatment Site: Inguinalnodes, Ref. ID: [id number], Energy: 6X, Dose/Fx (cGy): 200, #Fx: , Dose Correction (cGy): 0, Total Dose Delivered (cGy): 4,600, Start Date: 04/13/2018, End Date: 05/14/2018, Elapsed Days: 31 Course: larynx 2023, Treatment Site: Larynx 2023, Ref. ID: [id number], Energy: 6X, Dose/Fx (cGy): 225, #Fx: , Dose Correction (cGy): 0, Total Dose Delivered (cGy): 6,525, Start Date: 01/20/2024, End Date: 03/04/2024, Elapsed Days: 44 Clinical Summary: The patient tolerated RT well. He was able to complete his treatments without a treatment break. His skin became erythematous and hyperpigmented. He did not have any moist desquamation. His voice became breathy at the end of treatment. He had about a week of sore throat in the middle of his treatments which resolved. Plan: End of treatment today. Continue on the above medication until the skin reaction resolves. Follow up in one month. Signed by: Dr. Yessenia Nesbitt>03/04/2024 10:48:04 AM <<Signature on File>>
== END 2024-03-28 23:59 | disposition home or self-care (01) ==
PROVIDERS: PCP Family Medicine; Visit Provider Radiology Radiation Oncology
DX: C32.0 Malignant neoplasm of glottis (principal); Z51.0 Encounter for antineoplastic radiation therapy; L59.8 Other specified disorders of the skin and subcutaneous tissue related to radiation
CPT/HCPCS: 77336; 77386; 99024; 99214

== ENCOUNTER 2024-04-20 08:39 | Oncology outpatient (recurring) (ONCR) | payer MEDICARE, MEDICAID, SELFPAY ==
--- NOTE | 2024-03-31 10:19 | ONCRAD EPV_ITS ---
Radiation Oncology Established Patient Visit Patient: Jewel Connell [id number] : 1955 Age: 68 Sex: Male Dictated by: Dr. 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 He completed treatments to his larynx a month ago. He said that the first few days after he completed treatment he had nausea and some emesis and just felt ill. He then got better. However then he began to have increasing trouble swallowing and soreness on swallowing just in the last 2 weeks. He does feel like he may be better than he was last week. He has been taking in quite a bit of liquid even though he has to do it and sips. He says the area still feels like it swollen. He is requesting refills on the Magic mix. Radiotherapy to Date: Course: C1, Treatment Site: E [id number], Ref. ID: E beam [id number], Energy: 6E, Dose/Fx (cGy): 250, #Fx: , Dose Correction (cGy): 0, Total Dose Delivered (cGy): 5,500, Start Date: 04/14/2018, End Date: 05/13/2018, Elapsed Days: 29 C1, Treatment Site: Inguinalnodes, Ref. ID: [id number], Energy: 6X, Dose/Fx (cGy): 200, #Fx: , Dose Correction (cGy): 0, Total Dose Delivered (cGy): 4,600, Start Date: 04/13/2018, End Date: 05/14/2018, Elapsed Days: 31 Course: larynx 2023, Treatment Site: Larynx 2023, Ref. ID: [id number], Energy: 6X, Dose/Fx (cGy): 225, #Fx: , Dose Correction (cGy): 0, Total Dose Delivered (cGy): 6,525, Start Date: 01/20/2024, End Date: 03/04/2024, Elapsed Days: 44 Current History: Current Medications: Gabapentin, pain Reliever PM. Allergies: No Known Allergies Current Complaints / Review of Systems: . Vital Signs: Performed on 03/31/2024 9:11 AM BMI - 23.292 kg/m2 (high), Height - 71 in, Weight - 167 lbs, Temperature - 97.5 f, Pulse - 72 /min, Respiration - 16 /min, O2 Sat - 97 %, Pain - 6, Fatigue - 4 and BP - 107/ 66 mm(hg). Physical Exam: General: Alert and oriented x 3. No acute distress. HEENT: Normocephalic atraumatic. Pupils are equal, sclera clear, extraocular muscles intact. On his left cheek he has an erythematous area that measures approximately a centimeter by half centimeter. The central area is scaly and dry. Examination of the oral cavity reveals fairly significant thrush across his tongue. NECK: Supple without supraclavicular or jugular lymphadenopathy. Skin is nicely healed Performance Status: 90 Lab: None pending. Pathology: Primary, c32.9 - malignant neoplasm of larynx, unspecified, Diagnosed 01/01/2024 (active) and Primary, c63.2 - malignant neoplasm of scrotum, Diagnosed 03/11/2018 (active) . Imaging: See HPI Impression: Squamous of carcinoma of the larynx Plan: We talked about how his symptoms had gotten worse after his treatment. We talked about how this was fairly unusual that most people at this point I have had improvement of their symptoms. I reviewed with him that this may be secondary to a thrush and yeast overgrowth. I am going to send Diflucan to his pharmacy and instructed him on how to take this. Will refill his Magic mix. I am going to get a referral sent for him to be evaluated in dermatology. In the meantime I have asked him to continue to eat and drink as best he can but I did encourage him to call and we can always give him IV fluids. He verbalized understanding of all the above and at some point we will get him set up to see Dr. Oquendo as well Signed by: 03/31/2024 10:16:38 AM <<Signature on File>> Time spent with patient: 20 CPT Code: CPT Code:
--- NOTE | 2024-04-20 10:26 | ONCRAD EPV_ITS ---
Radiation Oncology Established Patient Visit Patient: Jewel Connell [id number] : 1955 Age: 68 Sex: Male Dictated by: Dr. 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 ID: [id number], Energy: 6X, Dose/Fx (cGy): 225, #Fx: , Dose Correction (cGy): 0, Total Dose Delivered (cGy): 6,525, Start Date: 01/20/2024, End Date: 03/04/2024, Elapsed Days: 44 Current History: Patient returns today for additional checkup. He completed his treatment March 04. He does say his swallowing has improved. His pain is decreased now down to a level 2. He is eating better and is trying to eat different foods. He still eating soft foods and even tried to eat casserole yesterday as well as some breads. He is still having issues with meats and some breads. He did finish the Diflucan medication Current Medications: Gabapentin, pain Reliever PM. Allergies: No Known Allergies Current Complaints / Review of Systems: . Vital Signs: Performed on 04/20/2024 9:07 AM Height - 71 in, Weight - 168.2 lbs, BMI - 23.459 kg/m2 (high), Temperature - 96.2 f, Pulse - 60 /min, Respiration - 16 /min, O2 Sat - 100 %, Pain - 2, Fatigue - 2 and BP - 103/ 69 mm(hg). Physical Exam: General: Alert and oriented x 3. No acute distress. HEENT: Normocephalic, atraumatic. Extraocular Movements Intact: Pupils Equal, Round, Reactive to Light: Sclerae anicteric. Oral cavity is clear without lesions, masses or ulcers. No evidence of thrush at this time NECK: Supple without supraclavicular or jugular lymphadenopathy. LUNGS: Respiratory rate regular nonlabored. HEART: Regular rate and rhythm . ABDOMEN patient remains quite thin with minimal adipose tissue NEUROLOGIC: Alert and orient x 3. Gait and speech within normal limits Performance Status: 100 Lab: None pending. Pathology: Primary, c32.9 - malignant neoplasm of larynx, unspecified, Diagnosed 01/01/2024 (active) and Primary, c63.2 - malignant neoplasm of scrotum, Diagnosed 03/11/2018 (active) . Imaging: See HPI Impression: Squamous cell carcinoma larynx Plan: He is seeing dermatology today for multiple areas. At this point we will get him an appointment with Dr. Oquendo which he would like to wait a few weeks for this. He is encouraged that he is continue to have improvement. Will set him up an appointment in about 8 weeks. I have asked him to return to see myself in 12 weeks. I have asked him to call if he should have any worsening of symptoms. He was in agreement with above plan. Signed by: 04/20/2024 10:25:06 AM <<Signature on File>> Time spent with patient: 15 CPT Code: CPT Code:
== END 2024-04-28 23:59 | disposition home or self-care (01) ==
PROVIDERS: PCP Family Medicine; Visit Provider Radiology Radiation Oncology
DX: C32.0 Malignant neoplasm of glottis (principal); D48.5 Neoplasm of uncertain behavior of skin; Z85.828 Personal history of other malignant neoplasm of skin; D23.111 Other benign neoplasm of skin of right upper eyelid, including canthus; L57.0 Actinic keratosis; D18.01 Hemangioma of skin and subcutaneous tissue; L92.3 Foreign body granuloma of the skin and subcutaneous tissue; B35.1 Tinea unguium; L82.1 Other seborrheic keratosis; Z92.3 Personal history of irradiation
CPT/HCPCS: 11102; 17000; 67700; 99024; 99203

== ENCOUNTER 2024-07-13 06:39 | Outpatient (CLI) | payer MEDICARE, MEDICAID, SELFPAY ==
--- NOTE | 2024-07-13 07:30 | CT_ITS ---
WS: [id number] CT NECK WITH CONTRAST HISTORY: SOFT TISSUE NECK FOR MALIGNANT NEOPLASM OF LARYNX TECHNIQUE: Contiguous 2 mm axial images are performed through the neck with intravenous contrast. Sag ittal and coronal reformats are also submitted. All CT scans at [facility] use at least one o f these dose optimization techniques: automated exposure control; mA and/or kV adjustment per patient size (includes targeted exams where dose is matched to clinical indication); or iterative reconstruc tion. CONTRAST: CONTRAST: Omnipaque 350; 100 mL IV. DLP: 203.61 mGy.cm COMPARISON: None available. Limited study. Poor enhancement due to limited bolus of IV contrast. Symmetric appearance to the larynx and subglottic airway. 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 The airway is symmetric. Subglottic airway and the v ocal cords appear symmetric. No enhancing mass identified. Oropharynx and nasopharynx are also normal. No abnormality at the tongue base. Epiglottis is negative . Torus tubarius and fossa of Rosenmuller and parapharyngeal fat are normal. Small cervical chain lymph nodes. No pathologic appearing lymph nodes identified. No prior studies fo r comparison. Level 2 and level 3 lymph nodes of less than a centimeter in short axis diameter. Thyroid gland and salivary glands are normally enhancing with no masses. No osseous abnormalities. Visualized portions of the skull base demonstrate no abnormalities. Orbits and globes are within norm al limits. No soft tissue masses. Mucoperiosteal thickening in the visualized paranasal sinuses, most significant involving the LEFT ma xillary sinus. Advanced fibrosis and emphysematous changes at the lung apices. Fibrotic plaque at the RIGHT apex is similar to the study of 12/10/2013. CT/CT neck w con* [id number] IMPRESSION: 1. Symmetric appearance of the larynx and subglottic airway. No recurrent mass is identified. No enhancing lesions. 2. Small, subcentimeter cervical chain lymph nodes. No lymphadenopathy.
[2024-07-13 09:15] LABS: Blood Urea Nitrogen 15 mg/dL (8-23); Glomerular Filtration Rate 112.1 mL/min (90-130)
[2024-07-13] MEDS: iohexol 350 mg/mL 500 mL Btl (per mL) IV (09:16)
== END 2024-07-13 06:40 | disposition home or self-care (01) ==
LOC: RAD 06:40
PROVIDERS: PCP Family Medicine; Visit Provider Specialist
DX: C32.8 Malignant neoplasm of overlapping sites of larynx (principal)
CPT/HCPCS: 70491; 82565; 84520

== ENCOUNTER 2024-07-14 08:41 | Oncology outpatient (recurring) (ONCR) | payer MEDICARE, MEDICAID, SELFPAY ==
--- NOTE | 2024-07-14 09:45 | ONCRAD EPV_ITS ---
Radiation Oncology Established Patient Visit Patient: Jewel Connell [id number] : 1955 Age: 68 Sex: Male Dictated by: Dr. 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 ID: E beam [id number], Energy: 6E, Dose/Fx (cGy): 250, #Fx: , Dose Correction (cGy): 0, Total Dose Delivered (cGy): 5,500, Start Date: 04/14/2018, End Date: 05/13/2018, Elapsed Days: 29 Course: C1, Treatment Site: Inguinalnodes, Ref. ID: [id number], Energy: 6X, Dose/Fx (cGy): 200, #Fx: , Dose Correction (cGy): 0, Total Dose Delivered (cGy): 4,600, Start Date: 04/13/2018, End Date: 05/14/2018, Elapsed Days: 31 Course: larynx 2023, Treatment Site: Larynx 2023, Ref. ID: [id number], Energy: 6X, Dose/Fx (cGy): 225, #Fx: , Dose Correction (cGy): 0, Total Dose Delivered (cGy): 6,525, Start Date: 01/20/2024, End Date: 03/04/2024, Elapsed Days: 44 Current History: Patient returns today for half months after completing radiation for larynx cancer. He has in the last month or so had increasing difficulty with swallowing although he has been able to maintain his weight within 2 pounds. He had a CT scan yesterday which showed symmetric appearance of the larynx and subglottic airway with no recurrent mass identified and no enhancement. Clinically however his voice is basically breathy again. He has significant pain in the larynx area. He says that he feels like the airway is getting tight as well. Dr. Oquendo performed a scope last week and was unable to pass the scope secondary to the tightness. He does have a PET scan scheduled in 2 weeks. Current Medications: Gabapentin, pain Reliever PM. Allergies: No Known Allergies Current Complaints / Review of Systems: . Vital Signs: Performed on 07/14/2024 9:05 AM BMI - 23.236 kg/m2 (high), Height - 71 in, Weight - 166.6 lbs, Temperature - 97.7 f, Pulse - 89 /min, Respiration - 18 /min, O2 Sat - 98 %, Pain - 7, Fatigue - 2 and BP - 115/ 73 mm(hg). Physical Exam: General: Alert and oriented x 3. No acute distress. HEENT: Normocephalic atraumatic. Pupils are equal, sclera clear, extraocular muscles intact. Oral cavity is without lesions or ulcerations. Palate elevates normally. NECK: Supple without supraclavicular or jugular lymphadenopathy. LUNGS: Respiratory rate is regular nonlabored. HEART: Regular rate and rhythm, NEUROLOGIC alert and orient x 3. Gait intact and normal. Speech is breathy.. Performance Status: 90 Lab: None pending. Pathology: Primary, c32.9 - malignant neoplasm of larynx, unspecified, Diagnosed 01/01/2024 (active) and Primary, c63.2 - malignant neoplasm of scrotum, Diagnosed 03/11/2018 (active) . 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 Will also call Dr. Oquendo's office to see if he can go ahead and get a biopsy. I will begin the process of setting him up to see ENT at [facility] in [place] for further surgical evaluation. I have also sent a prescription for hydrocodone as his pain is currently at a level 7. I reviewed with him that the narcotic will cause constipation and I encouraged him to take something every day for this. I also encouraged him to continue to eat as best he can and to maintain his weight. He has been doing rather well as his weight is only down 2 pounds. We also talked about the fact that his is unable to take care of herself. He is having to help her to get up to go to the bathroom at this point. At some point once we have determine what needs to be done surgically, he will need some social assistance with getting his placed in a usp temporarily. I encouraged him to start thinking about this process. Signed by: 07/14/2024 9:44:33 AM <<Signature on File>> Time spent with patient: 25 CPT Code: CPT Code:
== END 2024-07-29 23:59 | disposition home or self-care (01) ==
PROVIDERS: PCP Family Medicine; Visit Provider Radiology Radiation Oncology
DX: C32.0 Malignant neoplasm of glottis (principal); Z79.891 Long term (current) use of opiate analgesic
CPT/HCPCS: 99214

== ENCOUNTER 2024-07-23 10:13 | Outpatient (CLI) | payer MEDICARE, MEDICAID, SELFPAY ==
--- NOTE | 2024-07-23 10:19 | PETR_ITS ---
PROCEDURE INFORMATION: Exam: PET/CT Skull Base to Mid-thigh Exam date and time: 07/23/2024 11:27 AM Age: 68 years old Clinical indication: Condition or disease; Primary cancer: Malignant neoplasm of overlapping sites of larynx; Initial oncological staging assessment; Prior surgery; Surgery date: 6+ months; Patient HX: HX of testicular / throat cancer LABS AND CLINICAL REPORTS: Glucose: 102 mg/dl Treatment strategy for malignancy (PET staging): Initial Staging (PI) TECHNIQUE: Imaging protocol: Following at least four-hour fasting and following the injection of radiopharmaceutical, low dose CT images were obtained. Then, PET images were obtained. Attenuation corrected images were constructed using the CT scan. Fused images of PET and CT were reviewed. The standardized uptake values (SUV) reported below are maximum values within a region of interest, expressed in gm/ml. Exam includes orbital meatal line to mid-thigh. Radiopharmaceutical: 11.16 mCi F-18 FDG (Fluorodeoxyglucose), IV. Time of imaging post radiopharmaceutical administration: 1 hour Injection site: Right hand COMPARISON: 1. CT neck w con* [id number] 07/13/2024 9:05 AM 2. PT PET/CT LE scan 09/19/2018 8:[address] lung screening [id number] 12/11/2023 1:58 PM FINDINGS: Brain: Visualized brain has normal physiologic uptake. Paranasal sinuses: Uovo-rx-slxtryed non FDG avid left maxillary sinus and minimal right maxillary sinus opacification with patchy opacification of the bilateral ethmoid air cells. Pharynx: No abnormal uptake. Larynx: Mild symmetric thickening and FDG uptake with greatest uptake at the anterior midline with SUV max showing 5.9 on axial image 298 of series 202. Lungs, pleura and trachea: No abnormal uptake. Mild upper lung predominant emphysema with bullous change at the apices. Mild dependent atelectasis. No consolidation, mass, or pleural effusion. Heart: Normal physiologic uptake. Coronary arteries: Cjaa-ml-zduadzge coronary artery calcification. Mediastinal space: No abnormal uptake. Liver: No abnormal uptake. Gallbladder and biliary ducts: No abnormal uptake. Evidence of prior cholecystectomy with mildly increased biliary ductal dilatation compared to November 2023. Pancreas: No abnormal uptake. Spleen: No abnormal uptake. Adrenal glands: No abnormal uptake. Kidneys and ureters: Normal physiologic uptake. Punctate right renal calcification without hydronephrosis. Stomach and bowel: No abnormal uptake. Colonic diverticulosis without findings of diverticulitis. Reproductive: Enlarged prostate measures 4.9 cm in transverse dimension and shows central calcification. No abnormal uptake. Small left hydrocele. Vasculature: No abnormal uptake. Mild systemic atherosclerotic calcification without aortic aneurysm. Partially visualized left femoral artery bypass graft and low-level FDG uptake along the platinum left femoral artery. Lymph nodes: Asymmetric right hilar FDG uptake with index node measuring 1 cm in the short axis on axial image 254 of series 2 showing SUV max of 3.7. Skeleton: No abnormal uptake in the visualized axial and appendicular skeleton. Mild degenerative change along the spine. Soft tissues: Linear FDG uptake along bilateral hand and right forearm musculature without underlying CT abnormality likely physiologic or strain. Ovoid photopenic hypodense 2.9 x 1.5 cm structure at the ulnar left palm with small peripheral metallic density on axial image 80 of series 202. PET/PET skull to thigh INIT [id number] IMPRESSION: 1. Mild symmetric thickening of the larynx with symmetric FDG uptake may represent activation or posttreatment change, malignancy not excluded. 2. Asymmetric mildly metabolic right hilar lymphadenopathy, favor reactive. 3. Mild biliary ductal dilatation may be on the basis of prior cholecystectomy but is increased compared to November 2023. Correlate for evidence of obstruction. 4. Punctate nonobstructive right nephrolith. 5. Partially visualized left femoral artery bypass graft and low-level FDG uptake along the platinum left femoral artery that may be inflammatory. 6. Ovoid 2.9 cm hypodense structure at the ulnar left palm with peripheral metallic density may represent cyst or chronic hematoma. 7. Additional chronic and incidental findings as above.
== END 2024-07-23 10:14 | disposition home or self-care (01) ==
LOC: RAD 10:13
PROVIDERS: PCP Family Medicine; Visit Provider Specialist
DX: C32.8 Malignant neoplasm of overlapping sites of larynx (principal); R93.89 Abnormal findings on diagnostic imaging of other specified body structures; Z90.49 Acquired absence of other specified parts of digestive tract; N20.0 Calculus of kidney; Z95.818 Presence of other cardiac implants and grafts; M71.342 Other bursal cyst, left hand; K57.90 Diverticulosis of intestine, part unspecified, without perforation or abscess without bleeding; N40.0 Benign prostatic hyperplasia without lower urinary tract symptoms
CPT/HCPCS: 78815; A9552

== ENCOUNTER 2024-10-12 08:34 | Outpatient (CLI) | payer MEDICARE, MEDICAID, SELFPAY ==
--- NOTE | 2024-10-12 08:36 | FL_ITS ---
WS: [id number] FL barium swallow [id number] REASON FOR EXAM: OTHER DYSPHAGIA FLUOROSCOPY TIME: 2min [id number] # OF SPOT FILMS: Multiple FINDINGS: Patient was examined in the upright PA and lateral, prone MOON, and supine LPO positions. The swallowing of barium was monitored fluoroscopically and multiple rapid sequence spot films obtain ed. The valleculae are symmetric. There is asymmetry in the piriform sinuses with poor filling of the left piriform sinus which appears more narrow and truncated than the right. No aspiration was identified. No significant extrinsic or intrinsic mass effect on the cervical esoph abe. There is mild posterior impingement from C4-C5 osteophytosis. No extrinsic or intrinsic mass effect on the thoracic esophagus. There is a small hiatal hernia without significant reflux. There were intermittent mild tertiary cont ractions. There is no fixed narrowing of the distal esophagus. FL/FL barium swallow [id number] IMPRESSION: Asymmetry in the piriform sinuses as above. This may be an effect of previous r adiation on the motility of the hypopharynx, however a follow-up CT scan of the neck with contrast (since we have a previous baseline of 07/13/2024) would be reasonable.
== END 2024-10-12 08:35 | disposition home or self-care (01) ==
LOC: RAD 08:35
PROVIDERS: PCP Family Medicine; Visit Provider Specialist
DX: R13.19 Other dysphagia (principal); R93.89 Abnormal findings on diagnostic imaging of other specified body structures; K44.9 Diaphragmatic hernia without obstruction or gangrene; M25.78 Osteophyte, vertebrae
CPT/HCPCS: 74220

== ENCOUNTER 2024-10-26 09:40 | Outpatient (CLI) | payer MEDICARE, MEDICAID, SELFPAY ==
--- NOTE | 2024-10-26 10:07 | FL_ITS ---
WS: [id number] Exam: FL barium swallow modifd [id number] Date/Time of Exam: 10/26/2024 10:10 AM Reason For Exam: Other dysphagia Fluoroscopy time: 3min [id number] minutes # of spot films: Modified barium swallow was performed in conjunction with the speech therapy service. The patient experienced mild penetration into the laryngeal inlet when ingesting thin liquid barium s olution. The patient tolerated the remaining consistencies of barium mixture foodstuffs without penet ration or aspiration. The patient had some difficulty in swallowing the barium tablet with difficulty elevating the tongue to the hard palate to initiate swallowing. A drink of thin liquid barium howeve r facilitated swallowing the barium tablet which was propelled into the stomach. No aspiration was ob served during this exam. FL/FL barium swallow modifd [id number] IMPRESSION: 1. Mild penetration into the laryngeal inlet when drinking thin liquid barium. 2. Some difficulty swallowing the barium tablet. See above discussion. 3. No aspiration observed. A separate report with recommendations will follow from the speech therapy serv ice.
== END 2024-10-26 09:41 | disposition home or self-care (01) ==
LOC: RAD 09:41
PROVIDERS: PCP Family Medicine; Visit Provider Specialist
DX: R13.19 Other dysphagia (principal); R93.3 Abnormal findings on diagnostic imaging of other parts of digestive tract
CPT/HCPCS: 74230; 92611

== ENCOUNTER 2024-12-07 14:30 | Outpatient (CLI) | payer MEDICARE, MEDICAID, SELFPAY ==
--- NOTE | 2024-12-07 14:35 | CT_ITS ---
WS: [id number] CT NECK TECHNIQUE: Contrast-enhanced CT of the neck with coronal and sagittal reformatted images. CLINICAL INFORMATION: DYSPHAGIA COMPARISON: 07/13/2024 DLP: 162.[address] scans at [facility] use at least one of these dose optimization techniques: automated exposure control; mA and/or kV adjustment per patient size (includes targeted exams where dose is matched to clinical indication); or iterative reconstruction. FINDINGS: No mucosal thickening in the paranasal sinuses. Mastoid air cells are well aerated. Normal posterior nasopharynx. Normal parapharyngeal fat. Parotid glands are normal. Submandibular glands are normal. No evidence of supraglottic or glottic mass. Normal subglottic airway. Normal visualized thyroid gland. Advanced emphysematous changes in the lung apices. Bulla formation with fibrosis in the lung apices. Mild carotid bulb calcification. Mild spondylitic changes cervical spine. Mild thickening of the glottic and supraglottic larynx likely due to treatment- related changes. This is improved in appearance compared to 07/13/2024 CT/CT neck w con* [id number] IMPRESSION: 1. Normal salivary glands. 2. No evidence of recurrent supraglottic or glottic mass. Mild thickening of t he glottic and supraglottic larynx presumably due to treatment-related changes 3. No cervical lymphadenopathy.
[2024-12-07 15:06] LABS: Blood Urea Nitrogen 11 mg/dL (8-23); Glomerular Filtration Rate 111.8 mL/min (90-130)
[2024-12-07] MEDS: iohexol 350 mg/mL 500 mL Btl (per mL) IV (15:17)
== END 2024-12-07 14:31 | disposition home or self-care (01) ==
LOC: RAD 14:31
PROVIDERS: PCP Family Medicine; Visit Provider Specialist
DX: R13.10 Dysphagia, unspecified (principal); C32.8 Malignant neoplasm of overlapping sites of larynx; R93.89 Abnormal findings on diagnostic imaging of other specified body structures; J43.9 Emphysema, unspecified; J84.10 Pulmonary fibrosis, unspecified; I65.29 Occlusion and stenosis of unspecified carotid artery; M47.892 Other spondylosis, cervical region
CPT/HCPCS: 70491; 82565; 84520

== ENCOUNTER 2025-05-11 15:07 | Outpatient (CLI) | payer MEDICARE, MEDICAID, SELFPAY ==
--- NOTE | 2025-05-11 15:17 | USR_ITS ---
PROCEDURE INFORMATION: Exam: US Duplex Bilateral Lower Extremity Arteries Exam date and time: 05/11/2025 3:29 PM Age: 69 years old Clinical indication: Condition or disease; Peripheral vascular disease; Prior surgery; Surgery date: 6+ months; Surgery type: Graft in left femoral artery; Additional info: Pvd TECHNIQUE: Imaging protocol: Real-time ultrasound scan of the arteries of the bilateral lower extremities with 2-D murphy scale, color Doppler flow and spectral waveform analysis. Images documented and saved. COMPARISON: CT angio abd aorta runof [id number] 11/19/2019 2:55 PM FINDINGS: Right common femoral artery: No occlusion or significant stenosis. Normal waveform. Peak systolic velocity 100 cm/sec. Right superficial femoral artery: No occlusion. Monophasic waveform. Peak systolic velocity 52 cm/sec proximally, 75 cm/sec in the midportion, and 51 cm/sec distally. Right popliteal artery: No occlusion. Normal waveform. Peak systolic velocity 25 cm/sec. Right calf/foot arteries: No occlusion in the visualized arteries. Monophasic waveforms. Decreased peak systolic velocity in the posterior tibial artery measuring 28 cm/sec. Dorsalis pedis artery is patent. Right FLAKITO 0.87. Left common femoral artery: No occlusion or significant stenosis. Normal waveform. Peak systolic velocity 71 cm/sec. Left superficial femoral artery: No occlusion or significant stenosis. Biphasic waveform. Peak systolic velocity 70 cm/sec proximally, 46 cm/sec in the midportion, and 70 cm/sec distally. Left popliteal artery: No occlusion or significant stenosis. Triphasic waveform. Peak systolic velocity 68 cm/sec. Left calf/foot arteries: No occlusion or significant stenosis in the visualized arteries. Monophasic waveforms. Dorsalis pedis artery is patent. Left FLAKITO 0.98. US/[place] [id number] IMPRESSION: 1. Monophasic waveforms from the right superficial femoral artery through the arteries of the right foot with areas of decreased velocity in the popliteal and infrapopliteal arteries, suggestive of areas of at least moderate stenosis. 2. Mildly decreased right FLAKITO, suggestive of gpgh-yx-udwdstqo peripheral arterial disease. 3. Patent arteries of the left lower extremity.
== END 2025-05-11 15:08 | disposition home or self-care (01) ==
LOC: RAD 15:10
PROVIDERS: PCP Family Medicine; Visit Provider Family Medicine
DX: I73.9 Peripheral vascular disease, unspecified (principal); Z98.890 Other specified postprocedural states; R93.6 Abnormal findings on diagnostic imaging of limbs
CPT/HCPCS: 93925

== ENCOUNTER → 2025-09-12 16:08 | Outpatient (BNVA) | payer MEDICARE, MEDICAID, SELFPAY | PROVIDERS: PCP Family Medicine; Visit Provider Internal Medicine | DX: I25.10 Atherosclerotic heart disease of native coronary artery without angina pectoris (principal); J44.9 Chronic obstructive pulmonary disease, unspecified; Z87.891 Personal history of nicotine dependence | CPT/HCPCS: 99214 ==

== ENCOUNTER 2025-09-28 07:47 | Outpatient (CLI) | payer MEDICARE, MEDICAID, SELFPAY ==
--- NOTE | 2025-09-28 | ECG_ITS ---
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 The perfusion scan will be documented separately. DATA: Baseline heart rate was 71 beats per minute. Baseline blood pressure was 151/117 millimeters of mercury. Target heart rate was 151. Maximum heart rate achieved was 92. which was 60 % of the predicted target heart rate. Maximum blood pressure was 151/117 millimeters of mercury. The reason for ending the test was completion of the protocol. The patient did not experience any symptoms. ELECTROCARDIOGRAM: BASELINE: Sinus rhythm. Normal axis. Otherwise, no ST-T changes suggestive of ischemia noted. No arrhythmia noted. EXERCISE: After Lexiscan injection, no ST-T changes suggestive of ischemic noted. No arrhythmia noted. CONCLUSION: Please note due to baseline abnormality of the EKG specificity and sensitivity of the EKG portion of LexiScan MIBI stress test will be low 1. EKG not suggestive of ischemia 2. Lexiscan injection unremarkable. 3. Perfusion scan will be documented separately Electronically Signed On 09-29-2025 15:31:57 INSURANCE ACCOUNT EXECUTIVE by WILLY NEWMAN [email or web address]
[2025-09-28 07:57] VITALS: BMI 24.0
--- NOTE | 2025-09-28 08:08 | NMCV_ITS ---
NM abad perf SPECT r/s* [id number] Jewel Connell Age: 69 Gender: M : 1955 Exam Date: 09/28/2025 08:37 Ordering Phys: Keenan Simons M.D ([email or web address]) Technologist: NAHED De La Cruz Exam Location: [facility] Indications: cp STRESS TEST Please see separate stress test report in [facility] for full findings IMAGE PROTOCOL Rest/Stress 1 Lexiscan Day Radiopharmaceutical Dose (mCi) Administration Site Administered by Rest: Tc-99m 10.9 IV NAHED De La Cruz Sestamibi Stress:Tc-99m 32.5 IV June Hammer, [employer] Sestamibi Rest: 28-Sep-2025 60 Discovery 630 Stress: 28-Sep-2025 30 Discovery 630 0.4mg Lexiscan. Images obtained in supine and prone position. SPECT RESULTS Technical Quality: Good Raw Data Analysis: Normal Image Corrections: No attenuation or motion correction applied Summed Stress Score: 8 Summed Rest Score: 16 Summed Difference Score: 0 PERFUSION FINDINGS Large area of fixed patient defect noted in basal to distal inferior infra septal and inferolateral wall on both stress and rest images suggestive of old myocardial infarction versus scarring. This study is negative for ischemia. FUNCTIONAL RESULTS (calculated via Gated SPECT) Stress Image LV EF (%): 42 Stress EDV (mL):146 TID: 0.88 Stress ESV (mL):85 FUNCTIONAL FINDINGS: Inferior and inferolateral wall akinesia IMPRESSIONS Large area of old myocardial infarction versus scarring without barbie-infarct ischemia noted in basal to distal inferior, inferoseptal and inferolateral wall .. Brigitte Mata MD (Electronically Signed) Final Date: 29 September 2025 19:21 S
[2025-09-28] MEDS: ondansetron 2 mg/ML SDV 2 mL 4 MG IVP (09:21)
[2025-09-28 09:24] VITALS: BP 125/73; PULSE 68
== END 2025-09-28 07:48 | disposition home or self-care (01) ==
LOC: CDL 07:50
PROVIDERS: PCP Family Medicine; Visit Provider Internal Medicine
DX: R07.9 Chest pain, unspecified (principal); R06.02 Shortness of breath
CPT/HCPCS: 36415; 78452; 93017; 96374; 96375; A9500; J2405; J2785